=== PATIENT | male | born 1950 | race Caucasian/White ===

== ENCOUNTER 2021-12-26 11:44 | Observation (INO) | payer MEDICARE, OTHER, SELFPAY ==
[2021-12-26] VITALS (17 sets, daily range): BP systolic 110–149; BP diastolic 70–103; PULSE 53–74; RESP 16–26; TEMP 36.7–37.8; O2SAT 91–99; BMI 25.1; BMI 23.7
--- NOTE | 2021-12-26 12:00 | ED.WEAKNESS ---
HPI - Weakness General Chief complaint: Weakness Stated complaint: +COVID,weakness. Time Seen by Provider: 12/26/21 12:00 History of Present Illness HPI Narrative: Patient is a 71-year-old male history of Parkinson's presenting today with increased weakness is and COVID positive. is primary historian states that he has been coughing with low-grade temp for about 2 days. Yesterday he was unable to walk today he cannot sit. He is really not eating or drinking very much. He has had fever as high as 101.5 and sore throat. At baseline he is able to communicate he usually does more in the morning and worse at night. He gets around by walker. Very recently moved here from [place] and do not yet have a primary care provider. She states that sometimes he has violent dreams and gets Ativan at night he got Ativan 3 nights ago but nothing since. He has certainly been significantly more weak. The patient is able to answer some questions Related Data Home Medications Medication Instructions Recorded Confirmed carbidopa 25 mg-levodopa 100 mg 2 tab PO QID 12/26/21 12/26/21 tablet carbidopa ER 25 mg-levodopa 100 mg 2 tab PO QID 12/26/21 12/26/21 tablet,extended release Allergies Allergy/AdvReac Type Severity Reaction Status Date / Time No Known Drug Allergies Allergy Verified 12/26/21 12:20 Review of Systems Review of Systems ROS Unobtainable: Unobtainable due to medical condition Patient History Medical History (Updated 12/26/21 @ 18:58 by Edson Kaba DO) Parkinson disease Surgical History (Updated 12/26/21 @ 18:58 by Edson Kaba DO) No pertinent past surgical history Social History household members: spouse Smoking Status: Never smoker alcohol intake: never Exam Initial Vital Signs Initial Vital Signs: Vital Signs Temperature 98.1 F 12/26/21 12:01 Blood Pressure 110/79 12/26/21 12:01 GENERAL: Week slightly diaphoretic 71-year-old male and in no acute distress. HEENT: Head atraumatic,EOMI, pupils reactive, face symmetric, moist mucous membranes CARDIOVASCULAR: Regular rate and rhythm without murmurs, rubs or gallops. RESPIRATORY: Breath sounds equal bilaterally, no wheezes rales or rhonchi. ABDOMEN: Soft, nontender. Normoactive bowel sounds all 4 quadrants. No guarding or rebound. EXTREMITIES: Normal range of motion, no clubbing or edema. Neurovascularly intact NEUROLOGICAL: Alert responsive photo technician strength equal bilaterally able to follow commands can extend both feet SKIN: Warm, dry, no laceration, no petechiae, no rashes or lesions. Course Orders Ordered: ED Orders 12/26/21 12:05 Complete Blood Count AUTO DIFF Stat Comprehensive Metabolic Panel Stat Lactate (Lactic Acid) Stat Lipase Stat Procalcitonin Stat Respiratory Panel (Film Array) Stat 12/26/21 12:36 XR chest 1V Stat EKG-12 Lead Stat 12/26/21 13:20 Blood Culture Stat Acetaminophen (Acetaminophen 325 Mg Tablet) 975 mg PO Q8H PRN PRN Reason: Pain, Mild (1-3) Carbidopa/Levodopa (Carbidopa-Levodopa 25/100 Tablet) 2 each PO QID CHULA Diazepam (Diazepam 10 Mg/2 Ml Syringe) 2 mg IV Q4HR PRN PRN Reason: Agitation Enoxaparin Sodium (Enoxaparin 40 Mg/0.4 Ml Syringe) 40 mg SUBCUT DAILY CHULA Sodium Chloride (Normal Saline 0.9%) 1,000 mls @ 100 mls/hr IV CONT CHULA Lorazepam (Lorazepam 1 Mg Tablet) 1 mg PO Q4HR PRN PRN Reason: Agitation Magnesium Hydroxide (Magnesium Hydroxide 30 Ml Udc) 30 ml PO DAILY PRN PRN Reason: Constipation Ondansetron HCl (Ondansetron 4 Mg Odt) 4 mg PO Q8HR PRN PRN Reason: Nausea And Vomiting Discontinued Medications Diazepam (Diazepam 10 Mg/2 Ml Syringe) 2 mg IV NOW ONE Stop: 12/26/21 13:46 Last Admin: 12/26/21 14:40 Dose: Not Given Documented By: ALEXX Sodium Chloride (Normal Saline 0.9%) 1,000 mls @ 1,000 mls/hr IV BOLUS ONE Stop: 12/26/21 13:34 Last Infusion: 12/26/21 14:33 Dose: 0 mls/hr Documented By: Admin: 12/26/21 13:11 Dose: 1,000 mls/hr Documented By: MLSilvestre Lidocaine HCl (Lidocaine 2% (Glydo) 6 Ml Gel) 6 ml TOP NOW ONE Stop: 12/26/21 15:33 Last Admin: 12/26/21 15:48 Dose: 6 ml Documented By: SARA Vital Signs Vital signs: Vital Signs - 8 hr 12/26/21 12:01 12/26/21 12:02 12/26/21 12:03 Temperature 98.1 F Pulse Rate 69 Respiratory Rate 18 Blood Pressure 110/79 118/78 Pulse Oximetry Oxygen Delivery Method Oxygen Flow Rate 12/26/21 12:03 12/26/21 12:30 12/26/21 12:30 Temperature Pulse Rate 70 74 Respiratory Rate 18 17 Blood Pressure 123/81 Pulse Oximetry 96 Oxygen Delivery Method Nasal Cannula Oxygen Flow Rate 2 12/26/21 13:00 12/26/21 13:00 12/26/21 13:30 Temperature Pulse Rate 61 54 L Respiratory Rate 16 17 Blood Pressure 120/76 Pulse Oximetry 93 Oxygen Delivery Method Nasal Cannula Oxygen Flow Rate 2 12/26/21 14:00 12/26/21 14:00 12/26/21 14:30 Temperature Pulse Rate 53 L 70 Respiratory Rate 26 H 23 Blood Pressure 120/79 Pulse Oximetry Oxygen Delivery Method Oxygen Flow Rate 12/26/21 14:31 12/26/21 14:31 12/26/21 15:00 Temperature Pulse Rate 70 Respiratory Rate 23 Blood Pressure 138/83 146/79 H Pulse Oximetry 93 Oxygen Delivery Method Oxygen Flow Rate 12/26/21 15:00 Temperature Pulse Rate 64 Respiratory Rate 21 Blood Pressure Pulse Oximetry 92 Oxygen Delivery Method Oxygen Flow Rate MDM - Weakness Lab Data Result diagrams: 12/26/21 12:05 12/26/21 12:05 Labs: Lab Results 12/26/21 12/26/21 12/26/21 Range/Units 12:05 12:05 12:05 WBC 3.3 L (4.5-11.0) X10^3/uL RBC 5.30 (4.5-5.9) X10^6/uL Hgb 15.9 (13.5-17.5) g/dL Hct 46.4 (41-53) % MCV 87.6 (80-100) fL MCH 30.0 (26-34) PG MCHC 34.2 (30-36) % RDW 13.6 (11.6-14.8) % Plt Count 190 (150-400) X10^3/uL Neut % (Auto) 78.7 H (50-75) % Lymph % (Auto) 7.0 L (25-40) % [place] % (Auto) 14.0 (3-14) % Eos % (Auto) 0.0 L (2-4) % Baso % (Auto) 0.3 (0-2) % Neut # (Auto) 2600 (5896-1859) /uL Lymph # (Auto) 200 L (0033-4978) /uL [place] # (Auto) 500 (0-900) /uL Eos # (Auto) 0 (0-450) /uL Baso # (Auto) 0 (0-100) /uL Sodium 131 L (137-145) mmol/L Potassium 3.8 (3.4-5.1) mmol/L Chloride 97 L (98-107) mmol/L Carbon Dioxide 23 (22-32) mmol/L BUN 16 (9-20) mg/dL Creatinine 0.72 (0.66-1.25) mg/dL Estimated GFR > 60 (>60) mL/min BUN/Creatinine Ratio 22.2 H (6-22) Glucose 107 (80-110) mg/dL Lactate 0.9 (0.7-2.1) mmol/L Calcium 8.5 (8.4-10.2) mg/dL Total Bilirubin 0.7 (0.2-1.3) mg/dL AST 76 H (17-59) IU/L ALT 16 (<50) IU/L Alkaline Phosphatase 141 H (38-126) U/L Total Protein 7.2 (6.3-8.2) g/dL Albumin 4.1 (3.5-5.0) g/dL Globulin 3.1 (1.7-4.1) g/dL Albumin/Globulin Ratio 1.3 (1.0-2.8) Lipase 70 (23-300) U/L Procalcitonin 0.16 (<0.5) ng/mL Chlamy pneumoniae PCR (Not Detect) Adenovirus (PCR) (Not Detect) B. pertussis DNA (PCR) (Not Detecte) B.parapertussis DNA PCR (Not Detecte) Coronavirus OC43 (PCR) (Not Detect) Coronavirus HKU1 (PCR) (Not Detect) Coronavirus 229E (PCR) (Not Detect) SARS-CoV-2 (PCR) (Not Detecte) Coronavirus NL63 (PCR) (Not Detect) Human Metapneumovir PCR (Not Detect) Influenza Type A (PCR) (Not Detect) Influenza Type B (PCR) (Not Detect) M. pneumoniae (PCR) (Not Detect) Parainfluenza 1 (PCR) (Not Detect) Parainfluenza 2 (PCR) (Not Detect) Parainfluenza 3 (PCR) (Not Detect) Parainfluenza 4 (PCR) (Not Detect) RSV (PCR) (Not Detect) Entero/Rhino (PCR) (Not Detect) 12/26/21 Range/Units 12:05 WBC (4.5-11.0) X10^3/uL RBC (4.5-5.9) X10^6/uL Hgb (13.5-17.5) g/dL Hct (41-53) % MCV (80-100) fL MCH (26-34) PG MCHC (30-36) % RDW (11.6-14.8) % Plt Count (150-400) X10^3/uL Neut % (Auto) (50-75) % Lymph % (Auto) (25-40) % [place] % (Auto) (3-14) % Eos % (Auto) (2-4) % Baso % (Auto) (0-2) % Neut # (Auto) (0279-7419) /uL Lymph # (Auto) (6726-4321) /uL [place] # (Auto) (0-900) /uL Eos # (Auto) (0-450) /uL Baso # (Auto) (0-100) /uL Sodium (137-145) mmol/L Potassium (3.4-5.1) mmol/L Chloride (98-107) mmol/L Carbon Dioxide (22-32) mmol/L BUN (9-20) mg/dL Creatinine (0.66-1.25) mg/dL Estimated GFR (>60) mL/min BUN/Creatinine Ratio (6-22) Glucose (80-110) mg/dL Lactate (0.7-2.1) mmol/L Calcium (8.4-10.2) mg/dL Total Bilirubin (0.2-1.3) mg/dL AST (17-59) IU/L ALT (<50) IU/L Alkaline Phosphatase (38-126) U/L Total Protein (6.3-8.2) g/dL Albumin (3.5-5.0) g/dL Globulin (1.7-4.1) g/dL Albumin/Globulin Ratio (1.0-2.8) Lipase (23-300) U/L Procalcitonin (<0.5) ng/mL Chlamy pneumoniae PCR Not detected (Not Detect) Adenovirus (PCR) Not detected (Not Detect) B. pertussis DNA (PCR) Not detected (Not Detecte) B.parapertussis DNA PCR Not detected (Not Detecte) Coronavirus OC43 (PCR) Not detected (Not Detect) Coronavirus HKU1 (PCR) Not detected (Not Detect) Coronavirus 229E (PCR) Not detected (Not Detect) SARS-CoV-2 (PCR) Detected H (Not Detecte) Coronavirus NL63 (PCR) Not detected (Not Detect) Human Metapneumovir PCR Not detected (Not Detect) Influenza Type A (PCR) Not detected (Not Detect) Influenza Type B (PCR) Not detected (Not Detect) M. pneumoniae (PCR) Not detected (Not Detect) Parainfluenza 1 (PCR) Not detected (Not Detect) Parainfluenza 2 (PCR) Not detected (Not Detect) Parainfluenza 3 (PCR) Not detected (Not Detect) Parainfluenza 4 (PCR) Not detected (Not Detect) RSV (PCR) Not detected (Not Detect) Entero/Rhino (PCR) Not detected (Not Detect) Imaging Data Chest x-ray: Radiologist Impression: XRay Report Signed Patient: Deni Garcia MR#: [id number] : 1950 Acct:[id number] Age/Sex: 71 / M Date of Service: 12/26/21 Loc: ED Accession Number: [id number] ?? Procedure: XR chest 1V Ordering Provider: Jeni Wynne D.O. PROCEDURE:? XR CHEST 1V ? INDICATIONS:? suspected sepsis ? TECHNIQUE:? One view of the chest was acquired.? ? COMPARISON:? None. ? FINDINGS:? ? Surgical changes and devices:? None.? ? Lungs and pleura:? Trace strandy opacity laterally in the left lower lung.? Lungs are otherwise clear.? No consolidations.? No pleural effusions or pneumothorax.? ? Mediastinum:? Mediastinal contours appear normal.? Heart size is normal.? ? Bones and chest wall:? No suspicious bony lesions.? Overlying soft tissues appear unremarkable.? ? IMPRESSION:? Left lateral lower lung scarring.? Otherwise clear lungs. ? ? Dictated by: Lori Siddiuqi M.D. on 12/26/2021 at 13:37 ?? ECG Data Interpretation: Normal sinus rhythm rate 54 PA interval 106 QRS [address] changes MDM Narrative Medical decision making narrative: Patient it is COVID positive he is not requiring oxygen he is overall significantly weak and not at baseline. Needing IV fluids and monitoring. is unable to care for him at home. Dr. Kaba updated patient's symptoms test results and agrees with admission. At this time not hypoxic supportive care only Discharge Plan Departure Patient Disposition: Admitted As Inpatient Clinical Impression: COVID-19 Admit Date/Time: 12/26/21 15:07 Admit Provider: Edson Kaba
--- NOTE | 2021-12-26 12:36 | DI.RAD.S_ITS ---
PROCEDURE: XR CHEST 1V INDICATIONS: suspected sepsis TECHNIQUE: One view of the chest was acquired. COMPARISON: None. FINDINGS: Surgical changes and devices: None. Lungs and pleura: Trace strandy opacity laterally in the left lower lung. Lungs are otherwise clear. No consolidations. No pleural effusions or pneumothorax. Mediastinum: Mediastinal contours appear normal. Heart size is normal. Bones and chest wall: No suspicious bony lesions. Overlying soft tissues appear unremarkable. IMPRESSION: Left lateral lower lung scarring. Otherwise clear lungs. Dictated by: Lori Siddiqui M.D. on 12/26/2021 at 13:37 Approved by: Lori Siddiqui M.D. on 12/26/2021 at 13:37
[2021-12-26 12:48] LABS: Add Manual Diff / Slide Review NO; Basophils Absolute Auto 0 /uL (0-100); Basophils Percent Auto 0.3 % (0-2); Eosinophils Absolute Auto 0 /uL (0-450); Hematocrit 46.4 % (41-53); Hemoglobin 15.9 g/dL (13.5-17.5); Lymphocytes Absolute Auto 200 /uL (1100-4500); Mean Corpuscular HGB Conc 34.2 % (30-36); Mean Corpuscular Volume 87.6 fL (80-100); Monocytes Absolute Auto 500 /uL (0-900); Neutrophils Absolute Auto 2600 /uL (1500-7000); Neutrophils Percent Auto 78.7 % (50-75); Platelet Count 190 X10^3/uL (150-400); Red Cell Distribution Width 13.6 % (11.6-14.8); White Blood Cell Count 3.3 X10^3/uL (4.5-11.0)
[2021-12-26 12:53] LABS: Lactate (Lactic Acid) 0.9 mmol/L (0.7-2.1)
[2021-12-26 12:54] LABS: Alanine Aminotransferase 16 IU/L (<50); Albumin 4.1 g/dL (3.5-5.0); Albumin Globulin Ratio 1.3 (1.0-2.8); Alkaline Phosphatase 141 U/L (38-126); Aspartate Aminotransferase 76 IU/L (17-59); BUN Creatinine Ratio 22.2 (6-22); Bilirubin Total 0.7 mg/dL (0.2-1.3); Blood Urea Nitrogen 16 mg/dL (9-20); Calcium 8.5 mg/dL (8.4-10.2); Carbon Dioxide 23 mmol/L (22-32); Chloride 97 mmol/L (98-107); Estimated Glomerular Filt Rate > 60 mL/min (>60); Globulin 3.1 g/dL (1.7-4.1); Glucose 107 mg/dL (80-110); HEMOLYSIS < 15 (0-50); Lipase 70 U/L (23-300); Potassium 3.8 mmol/L (3.4-5.1); Sodium 131 mmol/L (137-145); Total Protein 7.2 g/dL (6.3-8.2)
[2021-12-26 13:10] LABS: Procalcitonin 0.16 ng/mL (<0.5)
[2021-12-26] MEDS: SODIUM CHLORIDE 0.9% 1,000 ML 1000 ML IV (13:11)
[2021-12-26 14:27] LABS: Adenovirus Not Detected (Not Detect); Coronavirus 229E Not Detected (Not Detect); Coronavirus HKU1 Not Detected (Not Detect); Coronavirus NL 63 Not Detected (Not Detect)
[2021-12-26 14:28] LABS: B. parapertussis Not Detected (Not Detecte); Bordetella pertussis Not Detected (Not Detecte); Chlamydophila pneumoniae Not Detected (Not Detect); Coronavirus OC43 Not Detected (Not Detect); Human Metapneumovirus Not Detected (Not Detect); Human Rhinovirus/Enterovirus Not Detected (Not Detect); Influenza A Not Detected (Not Detect); Influenza B Not Detected (Not Detect); Mycoplasma pneumoniae Not Detected (Not Detect); Parainfluenza Virus 1 Not Detected (Not Detect); Parainfluenza Virus 2 Not Detected (Not Detect); Parainfluenza Virus 3 Not Detected (Not Detect); Parainfluenza Virus 4 Not Detected (Not Detect); Respiratory Syncytial Virus Not Detected (Not Detect); SARS- CoV-2 Detected (Not Detecte)
[2021-12-26] MEDS: LIDOCAINE 2% (GLYDO) 6 ML GEL TOP (15:48)
[2021-12-26 18:35] LABS: Appearance Urine UA CLEAR; Bilirubin Urine UA NEGATIVE (NEGATIVE); Color Urine UA YELLOW; Glucose Urine UA NEGATIVE (Negative); Ketones Urine UA 1+ (NEGATIVE); Leukocyte Esterase Urine UA NEGATIVE (NEGATIVE); Nitrite Urine UA NEGATIVE (Negative); Occult Blood Urine UA NEGATIVE (Negative); Protein Urine UA 1+ (Negative); Specific Gravity Urine UA 1.025 (1.000-1.035); Urobilinogen Urine UA 0.2 E.U./dL (0.2); pH Urine UA 5.5 (4.5-8.0)
[2021-12-26 18:48] LABS: Bacteria Urine Few (2-10); Granular Casts Urine 1-5/LPF; Hyaline Casts Urine 5-10/LPF; RBC Urine 1-5/HPF (0-5/HPF); Squamous Epithelial Cell Urine 0-1 /HPF (0-5/HPF)
[2021-12-26 18:49] LABS: Culture Indicated Urine Cult Not Indicated; Mucus Urine 1+ (Negative)
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
[2021-12-26 18:50] LABS: WBC Urine 1-5/HPF (0-5/HPF)
[2021-12-26] MEDS: SODIUM CHLORIDE 0.9% 1,000 ML 100 ML IV (20:56)
--- NOTE | 2021-12-26 21:16 | PC.NURSE ---
Patient confused, agitated, and restless. Unable to keep oxygen or continuos pulse oximeter on patient for any longer than a few seconds. Paused IV fluids due to patient continually pulling and picking at tubing. Will attempt to reconnect all the things after administration of PRN medications.
[2021-12-26] MEDS: CARBIDOPA-LEVODOPA 25/100 TABLET 2 EACH PO (21:37)
[2021-12-27] VITALS (9 sets, daily range): BP systolic 126–152; BP diastolic 79–90; PULSE 56–72; RESP 17–20; TEMP 36.5–37.1; O2SAT 96–98
[2021-12-27 05:35] LABS: Hematocrit 45.5 % (41-53); Hemoglobin 15.5 g/dL (13.5-17.5); Mean Corpuscular HGB Conc 34.1 % (30-36); Mean Corpuscular Hemoglobin 29.8 PG (26-34); Mean Corpuscular Volume 87.3 fL (80-100); Platelet Count 178 X10^3/uL (150-400); Red Blood Cell Count 5.22 X10^6/uL (4.5-5.9); Red Cell Distribution Width 13.7 % (11.6-14.8); White Blood Cell Count 2.7 X10^3/uL (4.5-11.0)
[2021-12-27 05:37] LABS: Alanine Aminotransferase 80 IU/L (<50); Albumin Globulin Ratio 1.4 (1.0-2.8); Alkaline Phosphatase 123 U/L (38-126); Aspartate Aminotransferase 58 IU/L (17-59); BUN Creatinine Ratio 20.3 (6-22); Bilirubin Total 0.6 mg/dL (0.2-1.3); Blood Urea Nitrogen 15 mg/dL (9-20); Calcium 8.5 mg/dL (8.4-10.2); Carbon Dioxide 28 mmol/L (22-32); Chloride 98 mmol/L (98-107); Estimated Glomerular Filt Rate > 60 mL/min (>60); Globulin 2.9 g/dL (1.7-4.1); Glucose 100 mg/dL (80-110); HEMOLYSIS < 15 (0-50); Sodium 132 mmol/L (137-145); Total Protein 6.9 g/dL (6.3-8.2)
[2021-12-27 05:40] LABS: Add Manual Diff / Slide Review YES
[2021-12-27 06:46] LABS: Neutrophils Absolute Manual 1458 /uL (3000-5900); RBC Morphology Normal Morphology; Total Cells Counted 100
[2021-12-27] MEDS: CARBIDOPA-LEVODOPA 25/100 TABLET 2 EACH PO ×3 (10:14→18:23)
[2021-12-27] MEDS: ENOXAPARIN 40 MG/0.4 ML SYRINGE SUBCUT (10:14)
--- NOTE | 2021-12-27 10:24 | CM.DANOTE ---
DCP Note: Payor: Medicare PCP: Unknown Pt is a 71 y.o. M who was brought to the ED via ambulance with increased weakness and COVID +. Pt was unable to walk yesterday and when he was brought into the ED, pt cannot sit. Pt , Melita, is primary historian for pt. She stated that he has had a fever as high as 101.5 and sore throat. At baseline, pt can communicate but is worse at night. Pt has a history of Parkinsons Dementia Disease. Pt admitted to the floor for COVID support, weakness with PT/OT evals. DCP unable to meet with pt due to covid precautions. DCP contacted pt , Melita, to inquire about pt baseline activity level and gather more history. Per Melita, pt is non-independent and he walks with a walker. Melita is present when pt is walking to help prevent any falls. Melita states that they are currently living in a rental house because they just bought a house in [place] and it closes on Wednesday. Melita also states that they will not be able to move into the house due to the fact they are getting new floors starting wednesday and cannot live in the house until finished. Melita states that her rental house is on Wednesday and she will be homeless. Melita does state that she is going to call around today to try and find a hotel that she can stay at in the meantime. Melita states that their daughter lives nearby but they cannot stay at their house due to the fact they have many stairs to get into the house and a flight of stairs to get upstairs to the bedrooms. Melita states that she is uncertain if she can take care of pt when he is discharged from the hospital if he is still weak and unable to walk. DCP explained that PT/OT will be working with him today and we will be able to evaluate his baseline to determine needs post discharge. DCP spoke with Melita about HH vs SNF options. Melita open to that discussion. DCP to keep Melita updated as things progress with pt. P: Pt to work with PT/OT today. Once eval established, DCP to coordinate care as appropriate. Rosalind Rob RN/DCP Discharge Planning/Care Management CM Discharge Assessment Start: 12/27/21 10:23 Freq: Status: Active Protocol: Document 12/27/21 10:23 FLOR (Rec: 12/27/21 10:24 FLOR [id number]) Discharge Planning Assessment Assigned Marketing Programs Manager Rosalind Rob RN/JACQUES Advance Directives? Yes Advance Directives on File No History Provided By Family Member,Medical Record Prior Living Arrangements House Household Members spouse Type of transporation used prior to Relies on Others admit Independent with ADL's Yes: With some assistance DME Already Rented / Owned FWW / Walker Discharge Plan Home Referrals Initiated None needed Additional Comment At this time. Might need HH or SNF. Whiteboard Updated in Patient Room with No name and ext. # of Marketing Programs Manager Comment Unable to enter room due to covid precautions Review Status In Process Please Provide Date Initial DC 12/27/21 Assessment Was Performed Next Review Type Continued Stay Review
--- NOTE | 2021-12-27 11:11 | OT.IP.EVAL ---
Current Diagnoses COVID-19 (12/26/21) Past Medical History (Last Updated 12/26/21 @ 18:58 by Edson Kaba DO) Parkinson disease Surgical History (Last Updated 12/26/21 @ 18:58 by Edson Kaba DO) No pertinent past surgical history Occupational Therapy Inpatient Evaluation/Re-Eval M1 PT/OT-IP Prior Functional Status Start: 12/27/21 12:46 Freq: NEEDED Status: Active Protocol: Document 12/27/21 12:46 CGR (Rec: 12/27/21 13:30 CGR [id number]) Medical Review Prior Functional Status Medical History Reviewed Yes Communication Pt is able to communicate but is soft spoken and difficult to hear with CAPR donned. Mobility and Gait Pt was SBA to CGA with use of a 2WW per . states pt falls regularly typically when he is forgetful and tries to ambulate without his walker. Activities of Daily Living and IADL's Pt needed assist for most ADLs . Pt participates in a peridontal care routine that he could do with set up. Pt is able to perform toileting for urination IND but needs pericare assist for BM. Pt needs assist with dressing 60% of the time and needs assist with showering all of the time . Social History Household Members spouse Living Arrangements House Number of Floors (Floors) One Floor Number of Stairs To Enter/Railing? 4 steps to enter with B wide railings. states that she is thinking about getting a ramp. Home Environment Standard Height Toilet,Walk in Shower,Built-In Shower Seat Home Equipment Front Wheel Walker,Manual Wheelchair,Bedside Commode, Raised Toilet Seat Without Armrests,Lift Recliner Employment Status Retired Additional Social History Comment Pt and are about to move into a new house in [place] , they close on the house on Friday 12/29 and start michelle on 12/30. Pt's states that she and her daughter are planning to go to the house today to see if they can get one room ready so that they can stay in the home while the floors are finished. M2 OT-IP Current Condition Start: 12/27/21 12:46 Freq: Status: Active Protocol: Document 12/27/21 12:46 CGR (Rec: 12/27/21 13:30 CGR [id number]) Occupational Therapy Current Condition Current Condition Evaluation Date 12/27/21 Treatment Diagnosis Covid, hx of parkinsons, dementia Diagnosis Onset Date 12/26/21 M3 OT- IP Subjective and Pain Start: 12/27/21 12:46 Freq: Status: Active Protocol: Document 12/27/21 12:46 CGR (Rec: 12/27/21 13:30 CGR [id number]) OT- Subjective Occupational Therapy Visit Type Type Initial Evaluation Visit Start Time 10:30 Visit Stop Time 11:11 Total Visit Minutes 41 OT Pain Assessment Pain When Pain Assessed At Rest Pain Present Pain Present Denied Pain M4 OT- IP ADL's Start: 12/27/21 12:46 Freq: Status: Active Protocol: Document 12/27/21 12:46 CGR (Rec: 12/27/21 13:30 CGR [id number]) OT [id number] Comments OT Self-Feeding Comments Not meal time OT ADL-Grooming General Evaluation Grooming Ability Standby Assistance Areas Needing Assistance Face Washing Comments OT Grooming Comments seated in chair OT ADL-Oral Care General Eval Oral Care Ability Minimal Assistance Areas of Assistance Brushing Teeth Comments Oral Care Comments seated in chair OT ADL-Dressing General Eval Upper Body Dressing Ability Maximum Assistance Lower Body Dressing Ability Total Assistance Areas Needing Assistance Socks Comments OT Dressing Comments hospital gown and socks. Pt appeared confused about donning the hosptial gown. OT ADL-Toileting Comments OT Toileting Comments not performed, pt with lucas OT ADL-Bathing Comments OT Bathing Comments not performed M5 OT- IP IADL's Start: 12/27/21 12:46 Freq: Status: Active Protocol: Document 12/27/21 12:46 CGR (Rec: 12/27/21 13:30 CGR [id number]) OT-Instrumental Activities of Daily Living Deficits IADL Deficits Identified Deficits Home Safety Awareness Awareness of Need for Assistance at Home Decreased Awareness Ability to Problem Solve Emergency Unable to Problem Solve Situations Medication Management Medication Management Caregiver Administers Money Management Money Management Caregiver Provides Assistance Meal Preparation Meal Preparation Caregiver Provides Assist Histology Manager Histology Manager Caregiver Provides Assist Driving Driving Comments Pt does not drive M6 OT- IP Functional Cognition Start: 12/27/21 12:46 Freq: Status: Active Protocol: Document 12/27/21 12:46 CGR (Rec: 12/27/21 13:30 CGR [id number]) Cognitive Factors Limiting Selfcare Function Cognitive Ability Level of Alertness Alert,Confusional State Patient Orientation Name Attention Span Ability Capable of Focused Attention, Capable of Sustained Attention Ability to Follow Commands Able to Follow One Step Commands with Increased Time, Able to Follow One Step Commands with Repetition Cognitive Comments Cognitive Assessment Comments Pt with advanced dementia at baseline. OT- Vision and Hearing OT- Hearing Assessment OT- Hearing Assessment WFL OT- Vision Assessment Visual Acuity Glasses All The Time Visual Attentiveness WFL Occular Pursuits Impaired Vertical Vision Assessment Comments Pt was unable to track upwards M7 OT- IP Mobility and Balance Start: 12/27/21 12:46 Freq: Status: Active Protocol: Document 12/27/21 12:46 CGR (Rec: 12/27/21 13:30 CGR [id number]) OT- Bed Mobility Assessment Supine to Sit Supine to Sit Assist Moderate Assistance,1 Person Assistance Scooting Scooting to Edge of Bed Moderate Assistance,1 Person Assistance OT-Transfer Assessment Sit to and From Stand Sit to and from Stand Maximum Assistance,1 Person Assistance Transfers Transfer Ability Maximum Assistance,1 Person Assistance Technique Transfer Destination Bed,Chair Transfer Technique Stand Step Pivot Devices Transfer Assistive Devices Gait Belt,Front Wheeled Walker Comments Mobility Comments Pt with shuffling gait to chair. OT- Balance Assessment Sitting Balance and Reactions Static Sitting Balance Ability Fair Dynamic Sitting Balance Ability Fair M8 OT- IP Objective Assessments Start: 12/27/21 12:46 Freq: Status: Active Protocol: Document 12/27/21 12:46 CGR (Rec: 12/27/21 13:30 CGR [id number]) OT Gross Range of Motion Upper Extremity Range of Motion Assessment Left Impaired ROM Impairments AROM to the L shld is impaired OT Strength Upper Extremity Strength Assessment Within Functional Limits Comments Strength Comments arms and hands grossly 4+/5 OT- Coordination Assessment Upper Extremity Finger to Nose Test Bilateral UE Impaired Finger Tapping Test Bilateral UE Impaired Comments Coordination Comments WFL for simple ADLs but below what would be expected for someone of his age. OT-Muscle Tone Assessment Muscle Tone WNL Yes OT Sensation Assessment Edema Edema Absent M9 OT- IP Assessment and Plan Start: 12/27/21 12:46 Freq: Status: Active Protocol: Document 12/27/21 12:46 CGR (Rec: 12/27/21 13:30 CGR [id number]) OT Summary Assessment and Plan Potential Rehabilitation Potential Good Analytic Complexity at Evaluation High Summary OT Impairments Range of Motion,Balance, Coordination,Functional Cognition,Functional Mobility, Grooming,Dressing,Toileting, Bathing,Toilet Transfers, Shower Transfers,Activity Tolerance Progress Towards Goals Progressing Toward Goals Assessment Summary Pt presents as a high complexity evaluation s/p admit for covid with weakness and fevers. Pt has a hx of Parkinson and dementia. Pt needed max a for transfer to chair today with shuffling gait. Pt performed simple ADls seated in chair. Pt will benefit from continued Ot services while hospitalized. Pt is likely to progress for a safe discharge home but at this time pt would need SNF if ready for discharge. Goals Self-Feeding Goal Independent Grooming Goal Standby Assistance Bathing Goal Moderate Assistance Toilet Transfer Goal Standby Assistance Shower Transfer Goal Standby Assistance Days to Meet Goals 10 Frequency of Treatment Frequency Of Treatment Once a Day Treatment Plan OT Treatment Plan ADL Training,Functional Cognition Training,Functional Mobility,Patient/Family Education,Discharge Planning Other Treatment Recommendations and Next ADLs standing if able Treatment Focus Discharge Recommendations OT Discharge Recommendations Home vs SNF Other Discharge Recommendations Pt is likely to progress to a safe discharge home with family but currently is needing more physical assist than is his baseline. Transportation Needs at Discharge Wheelchair/Cabulance
--- NOTE | 2021-12-27 11:45 | PT.IIE ---
Current Diagnoses COVID-19 (12/26/21) Surgical History (Last Updated 12/26/21 @ 18:58 by Edson Kaba DO) No pertinent past surgical history Medical History (Last Updated 12/26/21 @ 18:58 by Edson Kaba DO) Parkinson disease Physical Therapy Inpatient Evaluation/Re-Eval M1 PT/OT-IP Prior Functional Status Start: 12/27/21 14:18 Freq: NEEDED Status: Active Protocol: Document 12/27/21 11:45 AB (Rec: 12/27/21 14:32 AB [id number]) Medical Review Prior Functional Status Medical History Reviewed Yes Communication pt able to follow instructs but inconsistent; has a very soft faint voice Mobility and Gait Per OT: Pt was SBA to CGA with use of a FWW per . states pt falls regularly typically when he is forgetful and tries to ambulate without his walker. Activities of Daily Living and IADL's pt unable to provide info regarding home set up and PLOF ; OT called spouse to obtain info: Per OT: Pt needed assist for most ADLs. Pt participates in a peridontal care routine that he could do with set up. Pt is able to perform toileting for urination IND but needs pericare assist for BM. Pt needs assist with dressing 60% of the time and needs assist with showering all of the time . Social History Household Members spouse Living Arrangements House Number of Floors (Floors) One Floor Number of Stairs To Enter/Railing? 4 steps to enter with B wide railings. states that she is thinking about getting a ramp. Home Environment Standard Height Toilet,Walk in Shower,Built-In Shower Seat Home Equipment Front Wheel Walker,Manual Wheelchair,Bedside Commode, Raised Toilet Seat Without Armrests,Lift Recliner Employment Status Retired Additional Social History Comment Pt and are about to move into a new house in [place] , they close on the house on Friday 12/29 and start michelle on 12/30. Pt's states that she and her daughter are planning to go to the house today to see if they can get one room ready so that they can stay in the home while the floors are finished. M2 PT-IP Current Condition Start: 12/27/21 14:18 Freq: NEEDED Status: Active Protocol: Document 12/27/21 11:45 AB (Rec: 12/27/21 14:32 AB [id number]) Physical Therapy Current Condition Current Condition Evaluation Date 12/27/21 Treatment Diagnosis Covid; PD; difficulty in walking Onset Date 12/26/21 M3 PT-IP Subjective Start: 12/27/21 14:18 Freq: NEEDED Status: Active Protocol: Document 12/27/21 11:45 AB (Rec: 12/27/21 14:32 AB [id number]) Subjective Physical Therapy Visit Type Type Initial Evaluation Visit Start Time 11:45 Visit Stop Time 12:18 Total Visit Minutes 33 Number of SENIOR FINANCIAL REPORTING ANALYST Visits 0 Physical Therapy Visit Comments Patient Comments pt is very restless on the chair and was trying to get up by himself M4 PT-IP Mobility and Gait Start: 12/27/21 14:18 Freq: NEEDED Status: Active Protocol: Document 12/27/21 11:45 AB (Rec: 12/27/21 14:32 AB [id number]) PT-Bed Mobility Assessment Supine to Sit Supine to Sit Standby Assistance Sit to Supine Sit to Supine Standby Assistance PT-Transfer Assessment Sit to and From Stand Sit to and from Stand Maximum Assistance,1 Person Assistance,Use of Upper Extremities Equipment Transfer Assistive Device Gait Belt,Front Wheeled Walker Orthotic/Prosthetic Devices or Brace: No Transfers Transfer Destination Bed,Chair Transfer Technique Stand Step Pivot Transfer Ability Level of Assist Maximum Assistance,1 Person Assistance,Use of Upper Extremities Comments Mobility Comments pt sitting on chair and is very restless. cued for safety and requires one step max cues with all tasks. completed sit to stand max A and cues. increase posterior LOB and max A for standing balance using fWW. ambulated in room using FWW max A and cues. pt let go of FWW midway during ambulation to reach down towards the floor. cued to stand up and to hold on to the walker. requires max cues and increas time for refocusing and redirection to task at hand. ambulated to the bed and pt climbing into the bed to get in sBA. when asked if this is how pt gets into the bed, pt nodded. asked pt to get back up and completed SBA. completed sit to stand max A and max cues and step transfer to chair max A and max cues using FWW. positioned pt on the chair. chair alarm on. call light and table placed within reach. Gait Assessment Gait Gait Assistance Required: Maximum Assistance Distance (Feet) 15 Able to Maintain Weight Bearing Status Yes During Gait Assistive Devices Assistive Device Gait Belt,Front Wheeled Walker Orthotic/Prosthetic Devices or Brace: No Gait Deviations General Gait Pattern Ataxic,Decreased Stride Length ,Decreased Feet Clearance Factors Limiting Gait Function Factors Limiting Gait Function Decreased Activity Tolerance, Decreased Strength,Difficulty Following Directions,Limited Range of Motion,Poor Balance, Poor Safety Awareness PT-Balance Assessment Sitting Balance and Reactions Static Sitting Balance Ability Good Dynamic Sitting Balance Ability Fair Standing Balance and Reactions Static Standing Balance Ability Poor Dynamic Standing Balance Ability Poor Device Used FWW M5 PT-IP Objective Assessments Start: 12/27/21 14:18 Freq: NEEDED Status: Active Protocol: Document 12/27/21 11:45 AB (Rec: 12/27/21 14:32 AB [id number]) Orientation Orientation/Cognition Level of Alertness Confusional State Orientation Name Safety Awareness Decreased Safety Awareness Memory Description Short Term Impaired,Detention Impaired Gross Range of Motion Lower Extremity ROM Assessment Within Functional Limits Strength Lower Extremity Strength Assessment Within Functional Limits Sensation Assessment Sensation Gross Sensation WNL M6 PT-IP Treatment Start: 12/27/21 14:18 Freq: NEEDED Status: Active Protocol: Document 12/27/21 11:45 AB (Rec: 12/27/21 14:32 AB [id number]) Physical Therapy Treatment Education Education Provided Safety M7 PT-IP Assessment and Plan Start: 12/27/21 14:18 Freq: NEEDED Status: Active Protocol: Document 12/27/21 11:45 AB (Rec: 12/27/21 14:32 AB [id number]) PT Summary Assessment and Plan Potential Rehabilitation Potential Fair Status of Condition at Evaluation Evolving Summary Impairments Pain,ROM,Strength,Balance, Coordination,Sensation,Tone, Cognition,Bed Mobility, Transfers,Gait,Activity Tolerance Assessment Summary pt requiring max A for sit to stand, transfers and ambulation using fWW with increase posterior LOB in standing despite FWW use and requires max A for standing balance using fWW. Pt with decrease safety awareness and gets easily distracted requiring max cues with all tasks for safety. pt lives with spouse. pt is in the transition on moving to a new house. pt may benefit from SNF rehab to improve mobility independence. will continue to assess progress. Goals Bed Mobility Goal Independent Transfer Goal Standby Assistance,Front Wheeled Walker Gait Goal Standby Assistance,Front Wheel Walker Gait Distance 150 Other Goals up/down 4 steps 1 rail SBA Days to Meet Goals 10 Frequency of Treatment Frequency Of Treatment Once a Day Treatment Plan Physical Therapy Treatment Plan Bed Mobility Training,Transfer Training,Gait Training, Therapeutic Exercise,Balance Retraining,Discharge Planning, Hot or Cold Pack,Neuromuscular Re-ed,Coordination Retraining ,Manual Therapy Precautions Other Precautions falls; Covid Recommendations To Nursing Amount of Assist Needed 2 Person Assist Discharge Recommendations PT Discharge Recommendations Home with 11/01 Assist Available,Home Health,SNF Rehab,Home vs SNF Transportation Needs at Discharge Private Vehicle,Wheelchair/ Cabulance
--- NOTE | 2021-12-27 13:20 | PM.PN.1 ---
Subjective Subjective Date Patient Seen: 12/27/21 Interval history: Feels a bit stronger today, but requires much assistance still with PT today. Exam Vital Signs (past 8 hours): - 12/27/21 06:00 12/27/21 08:00 Temperature 98.5 F Pulse Rate 56 L Respiratory Rate 19 Blood Pressure 139/79 Pulse Oximetry 97 96 Oxygen Delivery Method Room Air Oxygen Flow Rate 0 Oxygen Delivery Method Room Air Oxygen Flow Rate 0 Narrative Exam Narrative: General:? Patient mildly chronically ill appearing. Sitting upright in bed. HEENT:? Normocephalic, atraumatic, extraocular muscles intact, oral pharynx is clear and mucous membranes are dry. Neck: supple and symmetric, trachea is midline, no cervical adenopathy. Chest:? Normal AP diameter and contour without kyphoscoliosis, no tachypnea, equal chest rise bilaterally. Lungs:? CTA b/l no wheezing rhonchi or rales. Cardio:?RRR no m/r/g. Abdomen: S NT ND. Musculoskeletal:? Muscle strength and tone are equal within normal limits, no deformity. Extremities: No edema or joint effusions. No cyanosis or clubbing. Skin:? Pale,? Warm to touch,dry and intact without rashes, ulcerations or petechiae.? Neuro:? Alert, confused. Evident cognitive impairment. masked facies with resting pill rolling tremor. No focal deficits. Psych:?flat, currently calm and cooperative. Objective Labs Result Diagrams: 12/27/21 05:15 12/27/21 05:15 Labs: Laboratory Results - last 24 hr 12/26/21 12/26/21 12/27/21 12:05 15:45 05:15 WBC 2.7 L RBC 5.22 Hgb 15.5 Hct 45.5 MCV 87.3 MCH 29.8 MCHC 34.1 RDW 13.7 Plt Count 178 Neut % (Auto) Not Reportable Lymph % (Auto) Not Reportable [place] % (Auto) Not Reportable Eos % (Auto) Not Reportable Baso % (Auto) Not Reportable Lymph # (Auto) Not Reportable [place] # (Auto) Not Reportable Baso # (Auto) Not Reportable Total Counted 100 Seg Neutrophils % 37.0 L Band Neutrophils % 17.0 H Lymphocytes % (Manual) 22.0 L Atypical Lymphs % 1.0 H Monocytes % (Manual) 23.0 H Neutrophils # (Manual) 1458 L RBC Morphology Normal morphology Sodium Potassium Chloride Carbon Dioxide BUN Creatinine Estimated GFR BUN/Creatinine Ratio Glucose Calcium Magnesium Total Bilirubin AST ALT Alkaline Phosphatase Total Protein Albumin Globulin Albumin/Globulin Ratio Urine Color Yellow Urine Appearance Clear Urine pH 5.5 Ur Specific [place] 1.025 Urine Protein 1+ H Urine Glucose (UA) Negative Urine Ketones 1+ H Urine Occult Blood Negative Urine Nitrate Negative Urine Bilirubin Negative Urine Urobilinogen 0.2 Ur Leukocyte Esterase Negative Urine RBC 1-5/hpf Urine WBC 1-5/hpf Ur Squamous Epith Cells 0-1 /hpf Urine Bacteria Few (2-10) H Hyaline Casts 5-10/lpf Granular Casts 1-5/lpf Urine Mucus 1+ H Ur Culture Indicated? Cult not indicated Chlamy pneumoniae PCR Not detected Adenovirus (PCR) Not detected B. pertussis DNA (PCR) Not detected B.parapertussis DNA PCR Not detected Coronavirus OC43 (PCR) Not detected Coronavirus HKU1 (PCR) Not detected Coronavirus 229E (PCR) Not detected SARS-CoV-2 (PCR) Detected H Coronavirus NL63 (PCR) Not detected Human Metapneumovir PCR Not detected Influenza Type A (PCR) Not detected Influenza Type B (PCR) Not detected M. pneumoniae (PCR) Not detected Parainfluenza 1 (PCR) Not detected Parainfluenza 2 (PCR) Not detected Parainfluenza 3 (PCR) Not detected Parainfluenza 4 (PCR) Not detected RSV (PCR) Not detected Entero/Rhino (PCR) Not detected 12/27/21 05:15 WBC RBC Hgb Hct MCV MCH MCHC RDW Plt Count Neut % (Auto) Lymph % (Auto) [place] % (Auto) Eos % (Auto) Baso % (Auto) Lymph # (Auto) [place] # (Auto) Baso # (Auto) Total Counted Seg Neutrophils % Band Neutrophils % Lymphocytes % (Manual) Atypical Lymphs % Monocytes % (Manual) Neutrophils # (Manual) RBC Morphology Sodium 132 L Potassium 4.0 Chloride 98 Carbon Dioxide 28 BUN 15 Creatinine 0.74 Estimated GFR > 60 BUN/Creatinine Ratio 20.3 Glucose 100 Calcium 8.5 Magnesium 2.0 Total Bilirubin 0.6 AST 58 ALT 80 H Alkaline Phosphatase 123 Total Protein 6.9 Albumin 4.0 Globulin 2.9 Albumin/Globulin Ratio 1.4 Urine Color Urine Appearance Urine pH Ur Specific [place] Urine Protein Urine Glucose (UA) Urine Ketones Urine Occult Blood Urine Nitrate Urine Bilirubin Urine Urobilinogen Ur Leukocyte Esterase Urine RBC Urine WBC Ur Squamous Epith Cells Urine Bacteria Hyaline Casts Granular Casts Urine Mucus Ur Culture Indicated? Chlamy pneumoniae PCR Adenovirus (PCR) B. pertussis DNA (PCR) B.parapertussis DNA PCR Coronavirus OC43 (PCR) Coronavirus HKU1 (PCR) Coronavirus 229E (PCR) SARS-CoV-2 (PCR) Coronavirus NL63 (PCR) Human Metapneumovir PCR Influenza Type A (PCR) Influenza Type B (PCR) M. pneumoniae (PCR) Parainfluenza 1 (PCR) Parainfluenza 2 (PCR) Parainfluenza 3 (PCR) Parainfluenza 4 (PCR) RSV (PCR) Entero/Rhino (PCR) [facility] Medical History (Updated 12/26/21 @ 18:58 by Edson Kaba DO) Parkinson disease Surgical History (Updated 12/26/21 @ 18:58 by Edson Kaba DO) No pertinent past surgical history Social History household members: spouse Smoking Status: Never smoker alcohol intake: never Assessment & Plan Assessment & Plan narrative: 1. COVID 19 - continue supportive care. 2. Parkinson disesase - continue home sinemet 3. 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 Weakness due to #1 - PT /OT evaluations, presumed secondary to COVID. No other obvious metabolic or infectious etiology at this time. Code: unable to clarify at this time, will need to discuss with spouse per chart review. Presume full for now. Surrogate: presume spouse, unable to discuss with patient given his mentation currently. DVT: Lovenox daily Dispo: observation, plan for home COVID-19 COVID-19 status: Positive Time Spent With Patient Critical Care time: I spent a total of [] minutes of critical care time on this patient's care today; this time is exclusive of procedural time. Quality VTE Deep Vein Thrombosis/Pulmonary Embolism Present on Admission: No
[2021-12-27] MEDS: LORazepam 1 MG TABLET PO (18:23)
[2021-12-27] MEDS: SODIUM CHLORIDE 0.9% FLUSH 10 ML IV (20:57)
[2021-12-27] MEDS: CARBIDOPA-LEVODOPA ER 50/200 TABLET 1 EACH PO (20:57)
--- NOTE | 2021-12-27 21:39 | PC.NURSE ---
Patient agitated at shift change necessitating administration of Ativan at 1823 and is currently lying calmly and able to answer few orientation questions and follows some direction but not consistently. Is able to state his name and birthdate only. Is very soft spoken and difficult to understand. Breath sounds diminished and coarse sounding with RA sat of 97%. HRR. BP trending low end of high at 147/88. BT present and abdomen is soft. Indwelling catheter is patent; urine is clear, yellow. Denied pain when asked and has FLACC of 0. Has Parkinson's so extremities are stiff and with noted tremoring. On covid isolation precautions. Fall risk score is high and bed alarm is activated and currently has 1:1 staff observation.
[2021-12-28 00:59] VITALS: BP 145/72; PULSE 61; RESP 18; TEMP 37.3; O2SAT 99
[2021-12-28 05:29] VITALS: BP 147/83; PULSE 73; RESP 18; TEMP 37.2; O2SAT 96
[2021-12-28 05:36] LABS: Alanine Aminotransferase 12 IU/L (<50); Albumin 3.7 g/dL (3.5-5.0); Albumin Globulin Ratio 1.2 (1.0-2.8); Alkaline Phosphatase 110 U/L (38-126); Aspartate Aminotransferase 46 IU/L (17-59); BUN Creatinine Ratio 21.9 (6-22); Bilirubin Total 0.6 mg/dL (0.2-1.3); Blood Urea Nitrogen 16 mg/dL (9-20); Calcium 8.4 mg/dL (8.4-10.2); Carbon Dioxide 28 mmol/L (22-32); Chloride 98 mmol/L (98-107); Estimated Glomerular Filt Rate > 60 mL/min (>60); Glucose 99 mg/dL (80-110); HEMOLYSIS < 15 (0-50); Magnesium 1.9 mg/dL (1.6-2.3); Sodium 133 mmol/L (137-145); Total Protein 6.7 g/dL (6.3-8.2)
[2021-12-28 05:45] LABS: Add Manual Diff / Slide Review NO; Basophils Absolute Auto 0 /uL (0-100); Basophils Percent Auto 0.4 % (0-2); Eosinophils Absolute Auto 0 /uL (0-450); Eosinophils Percent Auto 0.1 % (2-4); Hemoglobin 15.1 g/dL (13.5-17.5); Lymphocytes Absolute Auto 700 /uL (1100-4500); Lymphocytes Percent Auto 21.3 % (25-40); Mean Corpuscular HGB Conc 34.3 % (30-36); Mean Corpuscular Hemoglobin 29.8 PG (26-34); Mean Corpuscular Volume 86.8 fL (80-100); Monocytes Absolute Auto 500 /uL (0-900); Monocytes Percent Auto 13.9 % (3-14); Neutrophils Absolute Auto 2200 /uL (1500-7000); Neutrophils Percent Auto 64.3 % (50-75); Platelet Count 169 X10^3/uL (150-400); Red Blood Cell Count 5.07 X10^6/uL (4.5-5.9); Red Cell Distribution Width 13.6 % (11.6-14.8); White Blood Cell Count 3.5 X10^3/uL (4.5-11.0)
[2021-12-28] MEDS: CARBIDOPA-LEVODOPA 25/100 TABLET 2 EACH PO ×3 (06:20→16:35)
[2021-12-28] MEDS: CARBIDOPA-LEVODOPA ER 50/200 TABLET 1 EACH PO ×4 (06:21→20:10)
[2021-12-28] MEDS: SODIUM CHLORIDE 0.9% FLUSH 10 ML IV ×2 (08:17→20:11)
[2021-12-28] MEDS: ENOXAPARIN 40 MG/0.4 ML SYRINGE SUBCUT (08:17)
[2021-12-28 08:33] VITALS: BP 126/67; PULSE 57; RESP 16; TEMP 37.6; O2SAT 97
--- NOTE | 2021-12-28 11:16 | CM.DPC ---
DCP Cont: DCP spoke with pt , Melita, this morning to inquire about current living situation. Per Melita, they are receiving the keys to their new house tomorrow and they are going to go see if they would be able to put a bed in the room where they are not having floors installed so that they can get patient home. I verbalized to Melita that pt could potentially be getting discharged home tomorrow and she stated that if he is getting discharged home tomorrow, for them to plan for the afternoon. Melita states that herself and her entire family is sick with COVID. DCP did notice the increase in coughing and secretions in Melita's voice. DCP talked to Melita about home health services and she agreed that would be a good option. DCP to keep Melita updated. DCP to initiate HH referral as appropriate. Rosalind Rob RN/DCP
--- NOTE | 2021-12-28 11:22 | PM.PN.1 ---
Subjective Subjective Date Patient Seen: 12/28/21 Interval history: Patient much weaker today, more somnolent. According to , patient is a mod assist at baseline with walker, tapers off activity mancini throughout the day. He became agitated overnight, required ativan which helped but he may be sleepy from this or his COVID infection. He denies chest pain or difficulty breathing. Exam Vital Signs (past 8 hours): - 12/28/21 05:29 12/28/21 05:29 12/28/21 08:33 Temperature 99.0 F 99.7 F H Pulse Rate 73 57 L Respiratory Rate 18 16 Blood Pressure 147/83 H 126/67 Pulse Oximetry 96 96 97 Oxygen Delivery Method Room Air Oxygen Flow Rate 0 0 0 Oxygen Delivery Method Room Air Oxygen Flow Rate 0 Narrative Exam Narrative: General:? Patient mildly chronically ill appearing. Difficult to arouse today. HEENT:? Normocephalic, atraumatic, extraocular muscles intact, oral pharynx is clear and mucous membranes are dry. Neck: supple and symmetric, trachea is midline, no cervical adenopathy. Chest:? Normal AP diameter and contour without kyphoscoliosis, no tachypnea, equal chest rise bilaterally. Lungs:? CTA b/l no wheezing rhonchi or rales. Cardio:?RRR no m/r/g. Abdomen: S NT ND. Musculoskeletal:? Muscle strength and tone are equal within normal limits, no deformity. Extremities: No edema or joint effusions. No cyanosis or clubbing. Skin:? Pale,? Warm to touch,dry and intact without rashes, ulcerations or petechiae.? Neuro:? sleepy, difficult to arouse but able to follow simple commands, confused. Evident cognitive impairment. masked facies. No focal deficits. Objective Labs Result Diagrams: 12/28/21 05:04 12/28/21 05:04 Labs: Laboratory Results - last 24 hr 12/28/21 12/28/21 05:04 05:04 WBC 3.5 L RBC 5.07 Hgb 15.1 Hct 44.0 MCV 86.8 MCH 29.8 MCHC 34.3 RDW 13.6 Plt Count 169 Neut % (Auto) 64.3 Lymph % (Auto) 21.3 L [place] % (Auto) 13.9 Eos % (Auto) 0.1 L Baso % (Auto) 0.4 Neut # (Auto) 2200 Lymph # (Auto) 700 L [place] # (Auto) 500 Eos # (Auto) 0 Baso # (Auto) 0 Sodium 133 L Potassium 4.0 Chloride 98 Carbon Dioxide 28 BUN 16 Creatinine 0.73 Estimated GFR > 60 BUN/Creatinine Ratio 21.9 Glucose 99 Calcium 8.4 Magnesium 1.9 Total Bilirubin 0.6 AST 46 ALT 12 Alkaline Phosphatase 110 Total Protein 6.7 Albumin 3.7 Globulin 3.0 Albumin/Globulin Ratio 1.2 [facility] Medical History (Updated 12/26/21 @ 18:58 by Edson Kaba DO) Parkinson disease Surgical History (Updated 12/26/21 @ 18:58 by Edson Kaba DO) No pertinent past surgical history Social History household members: spouse Smoking Status: Never smoker alcohol intake: never Assessment & Plan Assessment & Plan narrative: 1. COVID 19 - continue supportive care. No respiratory symptoms currently. 2. Parkinson disesase - continue home sinemet. 3. 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 One dose given overnight. 4. Weakness due to #1 - PT /OT evaluations, presumed secondary to COVID. - he remains significantly worse than his baseline. 5. Metabolic encephalopathy. - possibly due to COVID infection or need for ativan yesterday. - continue PT/OT - try and reorient prior to benzo administration Code: Full Surrogate: spouse DVT: Lovenox daily Dispo: observation, plan for home COVID-19 COVID-19 status: Positive Time Spent With Patient Critical Care time: I spent a total of [] minutes of critical care time on this patient's care today; this time is exclusive of procedural time. Quality VTE Deep Vein Thrombosis/Pulmonary Embolism Present on Admission: No
[2021-12-28 16:00] VITALS: BP 155/92; PULSE 62; RESP 16; TEMP 37.3; O2SAT 97
[2021-12-28 20:00] VITALS: BP 104/72; PULSE 67; RESP 18; TEMP 37.3; O2SAT 98
[2021-12-28 20:20] VITALS: O2SAT 98
[2021-12-28] MEDS: ACETAMINOPHEN 325 MG TABLET 975 MG PO (20:38)
[2021-12-29] VITALS: BP 144/76; PULSE 60; RESP 17; TEMP 36.4; O2SAT 96
[2021-12-29] MEDS: SODIUM CHLORIDE 0.9% FLUSH 10 ML IV ×2 (00:23→08:11)
[2021-12-29] MEDS: diazePAM 10 MG/2 ML SYRINGE 2 MG IV (00:23)
[2021-12-29 00:30] VITALS: O2SAT 96
[2021-12-29 04:00] VITALS: BP 158/84; PULSE 62; RESP 16; TEMP 37.6; O2SAT 97
[2021-12-29 05:31] LABS: Add Manual Diff / Slide Review NO; Basophils Absolute Auto 0 /uL (0-100); Basophils Percent Auto 0.5 % (0-2); Eosinophils Absolute Auto 0 /uL (0-450); Eosinophils Percent Auto 0.6 % (2-4); Hematocrit 43.3 % (41-53); Hemoglobin 15.1 g/dL (13.5-17.5); Lymphocytes Absolute Auto 600 /uL (1100-4500); Lymphocytes Percent Auto 14.9 % (25-40); Mean Corpuscular HGB Conc 34.8 % (30-36); Mean Corpuscular Hemoglobin 30.2 PG (26-34); Monocytes Absolute Auto 500 /uL (0-900); Neutrophils Absolute Auto 2900 /uL (1500-7000); Platelet Count 155 X10^3/uL (150-400); Red Blood Cell Count 4.98 X10^6/uL (4.5-5.9); Red Cell Distribution Width 13.8 % (11.6-14.8); White Blood Cell Count 4.1 X10^3/uL (4.5-11.0)
[2021-12-29 05:41] LABS: Alanine Aminotransferase 29 IU/L (<50); Albumin 3.8 g/dL (3.5-5.0); Albumin Globulin Ratio 1.3 (1.0-2.8); Alkaline Phosphatase 110 U/L (38-126); Aspartate Aminotransferase 40 IU/L (17-59); Bilirubin Total 0.8 mg/dL (0.2-1.3); Blood Urea Nitrogen 14 mg/dL (9-20); Calcium 8.3 mg/dL (8.4-10.2); Carbon Dioxide 27 mmol/L (22-32); Chloride 98 mmol/L (98-107); Estimated Glomerular Filt Rate > 60 mL/min (>60); Glucose 98 mg/dL (80-110); HEMOLYSIS < 15 (0-50); Potassium 3.7 mmol/L (3.4-5.1); Sodium 133 mmol/L (137-145); Total Protein 6.8 g/dL (6.3-8.2)
--- NOTE | 2021-12-29 06:13 | PC.NURSE ---
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 Patient says he was hungry and unable to feed self, ate 50% of dinner and drank 2 cups water with full assistance. Tylenol given for Temp and pain from pulling at Tavares catheter, small clots noted in tubing. Incontinent small formed brown stool. Remains in Droplet Isolation.
[2021-12-29] MEDS: CARBIDOPA-LEVODOPA 25/100 TABLET 2 EACH PO ×2 (07:43→12:00)
[2021-12-29] MEDS: CARBIDOPA-LEVODOPA ER 50/200 TABLET 1 EACH PO (07:43)
[2021-12-29] MEDS: ENOXAPARIN 40 MG/0.4 ML SYRINGE SUBCUT (08:11)
[2021-12-29 08:12] VITALS: BP 146/87; PULSE 60; RESP 16; TEMP 36.9; O2SAT 97
--- NOTE | 2021-12-29 10:38 | PM.DS.1 ---
History of Present Illness History of Present Illness Date Patient Seen: 12/29/21 Time Patient Seen: 10:45 Chief complaint: +COVID,weakness. Narrative: This is a 71-year-old male with a past medical history of Parkinson's who presented to the emergency room today with increasing weakness and a positive COVID test.? History is largely obtained from the ER provider and documentation as the patient is unable to recall an accurate history.? He is able to answer some questions, but the time frame with which he answers is unclear.? According to the ER provider, his stated that he has been coughing with a low-grade temperature for a couple of days.? He has had worsening weakness and today he was unable to really sit up.? He has had declining appetite not eating or drinking much and has had a fever as high as 101 at home.? He does has a history of violent dreams according to the ER provider and gets intermittent Ativan.? The patient currently denies any chest pain, fever, chills, nausea, or vomiting.? He denies any abdominal pain, lower extremity swelling, or joint pains. In the emergency room, he was mildly hypertensive but the remainder of his vital signs were unremarkable.? He had no respiratory symptoms.? Initial laboratory evaluation revealed a mild leukopenia, mild hyponatremia with sodium of 131, mild transaminitis with an AST of 76.? Urinalysis showed 1-5 RBC and WBC, a few urine bacteria, with some squamous cells, it was not reflexed for culture.? Respiratory panel was positive for COVID-19.? Chest x-ray was unremarkable.? Patient was admitted for weakness in the setting COVID-19 infection. I am unable to confirm patient's family history and code status at this time given his current mental status. Discharge Providers Provider Date of admission: 12/26/21 15:07 Discharge Date: 12/29/21 Consults: 12/26/21 17:19 Consult to Occupational Therapy Evaluate & Treat Comment: Physician Instructions: Evaluate and treat Consult to Physical Therapy Evaluate & Treat Comment: Physician Instructions: Evaluate and Treat Discharge provider: Gabby Brewer MD Summary Hospital Course Discharge Diagnosis: 1. Covid Pneumonia 2. Parkinson's Disease 3. Generalized weakness 4. Dementia Hospital Course: Patient was admitted with a positive Covid test, weakness and inability to ambulate. We has agitated at night and required ativan. He is not hypoxic. He remains confused but is in no acute distress. Patient appears to be somewhat weaker as at baseline he was a moderate assist with a walker. Given his Covid-19 status he will not be eligible to go to a SNF. Status at Discharge Cognitive/behavioral status at discharge: confused and at baseline, confused Functional status at discharge: uses cane/walker Overall status at discharge: patient is progressing back to baseline Exam Vital Signs (past 8 hours): - 12/29/21 04:00 12/29/21 04:00 12/29/21 08:12 Temperature 99.6 F 98.4 F Pulse Rate 62 60 Respiratory Rate 16 16 Blood Pressure 158/84 H 146/87 H Pulse Oximetry 97 97 97 Oxygen Delivery Method Room Air Oxygen Flow Rate 0 Oxygen Delivery Method Room Air Oxygen Flow Rate 0 Narrative Exam Narrative: ill appearing male sitting up in a bed in no acute distrss Resp Other: Lungs: clear to auscultation Cardio Other: CV: RRR nl Sl S2 GI Other: Abd: soft /non tender/ non distended Extrem Other: NO edema Objective Labs Result Diagrams: 12/29/21 05:14 12/29/21 05:14 Labs: Laboratory Results - last 24 hr 12/29/21 12/29/21 05:14 05:14 WBC 4.1 L RBC 4.98 Hgb 15.1 Hct 43.3 MCV 87.0 MCH 30.2 MCHC 34.8 RDW 13.8 Plt Count 155 Neut % (Auto) 71.0 Lymph % (Auto) 14.9 L [place] % (Auto) 13.0 Eos % (Auto) 0.6 L Baso % (Auto) 0.5 Neut # (Auto) 2900 Lymph # (Auto) 600 L [place] # (Auto) 500 Eos # (Auto) 0 Baso # (Auto) 0 Sodium 133 L Potassium 3.7 Chloride 98 Carbon Dioxide 27 BUN 14 Creatinine 0.70 Estimated GFR > 60 BUN/Creatinine Ratio 20.0 Glucose 98 Calcium 8.3 L Magnesium 2.0 Total Bilirubin 0.8 AST 40 ALT 29 Alkaline Phosphatase 110 Total Protein 6.8 Albumin 3.8 Globulin 3.0 Albumin/Globulin Ratio 1.3 [facility] Medical History (Updated 12/26/21 @ 18:58 by Edson Kaba DO) Parkinson disease Surgical History (Updated 12/26/21 @ 18:58 by Edson Kaba DO) No pertinent past surgical history Social History household members: spouse Smoking Status: Never smoker alcohol intake: never Discharge Assessment & Plan Assessment and Plan Assessment: 1. Covid Pneumonia 2. Parkinson's Disease 3. Generalized weakness 4. Dementia Plan of Treatment: Discharge home with home health Discharge Plan Discharge Plan Patient Disposition: Home Discharge orders & Medications Prescriptions: Continued carbidopa-levodopa 25-100 mg Tablet Extended Release 2 tab PO QID Rx Instructions: 0700, 1000, 1300, 1600 carbidopa-levodopa 25-100 mg Tablet 2 tab PO QID Rx Instructions: 0700, 1000, 1300, 1600 Discharge Health Status Multidrug resistant organism: No MDRO Diet/Activity/Treatments Diet: Diet as Tolerated Discharge Data Attending Provider: Edson Kaba Quality VTE Deep Vein Thrombosis/Pulmonary Embolism Present on Admission: No
--- NOTE | 2021-12-29 11:30 | CM.DPC ---
Addendum entered by Rosalind Rob R.N. 12/29/21 14:18: DCP sent d/c summary to [facility] . GEOFFREY ZHENG/JACQUES Original Note: DCP Cont: DCP spoke with pt this morning to inform her about pt discharge today. DCP informed that pt will be discharged today and MD is recommending home health. agrees. states that they she was able to book a hotel room @ the [facility] here in [place] until Wednesday in hopes that the floors are done at the house. DCP states that the HH agency can come out and work with him in the motel until they can transition into the new home. states that her and her daughter would come to pickle pumper pt around 3:30 as they are having to pickle pumper keys from the realtor and then their check in time is 4pm at the motel. DCP verbalized understanding and informed the team of pickle pumper time [facility] referral sent. Orders and F2F included. Will need to fax d/c summary once available. P: Pt to discharge home today via spouse POV with home health orders. Rosalind Rob RN/JACQUES
[2021-12-29] MEDS: ACETAMINOPHEN 325 MG TABLET 975 MG PO (11:44)
[2021-12-29 12:00] VITALS: BP 134/80; PULSE 56; RESP 19; TEMP 37.4; O2SAT 98
--- NOTE | 2021-12-29 12:20 | PT.IPTN ---
Current Diagnoses COVID-19 (12/26/21) Physical Therapy Treatment Note M2 PT-IP Current Condition Start: 12/27/21 14:18 Freq: NEEDED Status: Active Protocol: Document 12/29/21 11:48 SP (Rec: 12/29/21 15:39 SP [id number]) Physical Therapy Current Condition Current Condition Evaluation Date 12/27/21 Treatment Diagnosis Covid; PD; difficulty in walking Onset Date 12/26/21 M3 PT-IP Subjective Start: 12/27/21 14:18 Freq: NEEDED Status: Active Protocol: Document 12/29/21 11:48 SP (Rec: 12/29/21 15:39 SP [id number]) Subjective Physical Therapy Visit Type Type Treatment Note Visit Start Time 11:48 Visit Stop Time 12:20 Total Visit Minutes 32 Notes Vitals taken during tx: supine: BP 149/87 HR 62 SaO2 99% on RA post mobility: BP 155/93 HR 69 SaO2 98% on RA Number of DATA CENTER MANAGER Visits 1 Physical Therapy Visit Comments Patient Comments Pt agreeable to mobilizing with DATA CENTER MANAGER. M4 PT-IP Mobility and Gait Start: 12/27/21 14:18 Freq: NEEDED Status: Active Protocol: Document 12/29/21 11:48 SP (Rec: 12/29/21 15:39 SP [id number]) PT-Bed Mobility Assessment Supine to Sit Supine to Sit Standby Assistance Scooting Scooting to Edge of Bed Standby Assistance PT-Transfer Assessment Sit to and From Stand Sit to and from Stand Moderate Assistance,1 Person Assistance,Use of Upper Extremities Equipment Transfer Assistive Device Gait Belt,Front Wheeled Walker Orthotic/Prosthetic Devices or Brace: No Transfers Transfer Destination Chair Transfer Technique stand step pivot transfer, ambulated w/ FWW Transfer Ability Level of Assist Minimal Assistance,Moderate Assistance,1 Person Assistance ,Use of Upper Extremities Comments Mobility Comments Pt completed supine>sit, scoot EOB SBA using BUE. Sit>stand Mod A x1 support at trunk due to retro lean, cued forward COG over CHASTITY. SPT bed>chair w/ FWW, hand over hand with max cues reach back to sit on chair, Min A descend to sit. Sit>stand Min A cued push from chair arms. Forward gait to sink, cues for FWW positioning over portable step, complete ascend/descend 6 step forward/ step back w/ R sink rail and FWW on L for support CGA-5%A, then gait across room to door and back to chair CG- Min A w/ FWW for trunk stability and cues for increase stride/ foot clearance to decrease shuffle gait improved receiprocal patterning. Stand pivot front chair cued fully back step w/ FWW, assisted FWW positioning when needed, Min A sit in chair. Pt had call light and all needs in reach, chair alarm donned, nursing brought in lunch tray, pt able to feed self with no issues noted before left. Pt would benefit from continued home health PT for increase strength and functional mobility. Pt is ok to return home when medically cleared. Gait Assessment Gait Gait Assistance Required: Contact Guard Assist,Minimum Assistance,1 Person Assist Distance (Feet) 30 Able to Maintain Weight Bearing Status Yes During Gait Assistive Devices Assistive Device Gait Belt,Front Wheeled Walker Orthotic/Prosthetic Devices or Brace: No Gait Deviations General Gait Pattern Ataxic,Decreased Stride Length ,Decreased Feet Clearance, Festinating,Narrow Based Gait, Step-to Gait Factors Limiting Gait Function Factors Limiting Gait Function Decreased Activity Tolerance, Decreased Strength,Difficulty Following Directions,Limited Range of Motion,Poor Balance, Poor Safety Awareness Comments Gait Comments see mobility comments Stair Climbing Assessment Evaluation Level of Assist On Stairs Contact Guard Assistance, Minimal Assistance,1 Person Assistance Devices Stair Climbing Assistive Devices Front Wheel Walker,Right Railing Technique/Endurance Stair Climbing Direction Ascend and Descend Stair Climbing Technique Step to Step Number of Steps Climbed 1 Stair Climbing Set # Repetitions (reps) 6 Comments Stair Climbing Comments step up/ back down portable 4 step R sink rail and FWW on L postioning over step to assimulate enterance to home due quarantine and unable to leave room. PT-Balance Assessment Sitting Balance and Reactions Static Sitting Balance Ability Good Dynamic Sitting Balance Ability Fair Standing Balance and Reactions Static Standing Balance Ability Fair Dynamic Standing Balance Ability Fair Device Used FWW M5 PT-IP Objective Assessments Start: 12/27/21 14:18 Freq: NEEDED Status: Active Protocol: Document 12/27/21 11:45 AB (Rec: 12/27/21 14:32 AB [id number]) Orientation Orientation/Cognition Level of Alertness Confusional State Orientation Name Safety Awareness Decreased Safety Awareness Memory Description Short Term Impaired,Halfway Impaired Gross Range of Motion Lower Extremity ROM Assessment Within Functional Limits Strength Lower Extremity Strength Assessment Within Functional Limits Sensation Assessment Sensation Gross Sensation WNL M6 PT-IP Treatment Start: 12/27/21 14:18 Freq: NEEDED Status: Active Protocol: Document 12/29/21 11:48 SP (Rec: 12/29/21 15:39 SP [id number]) Physical Therapy Treatment Education Education Provided Safety M7 PT-IP Assessment and Plan Start: 12/27/21 14:18 Freq: NEEDED Status: Active Protocol: Document 12/29/21 11:48 SP (Rec: 12/29/21 15:39 SP [id number]) PT Summary Assessment and Plan Potential Rehabilitation Potential Fair Status of Condition at Evaluation Evolving Summary Impairments Pain,ROM,Strength,Balance, Coordination,Sensation,Tone, Cognition,Bed Mobility, Transfers,Gait,Activity Tolerance Progress Towards Goals Progressing Toward Goals,Slow Progress due to Activity Tolerance Assessment Summary Pt required CGA during bed mob , Min- Mod A during transfers, CG-Min A during gait and stair mgt w/ FWW, max cues for increased foot clearance and stride to decrease shuffle gait. Pt would benefit from HHPT for increase strength and independence in functional mobility. Pt is ok to return home with family to assist him when medically cleared, 24/7 available due to fall risk and Max cuing and physical support during mobility. Goals Bed Mobility Goal Independent Transfer Goal Standby Assistance,Front Wheeled Walker Gait Goal Standby Assistance,Front Wheel Walker Gait Distance 150 Other Goals up/down 4 steps 1 rail SBA Days to Meet Goals 10 Frequency of Treatment Frequency Of Treatment Once a Day Treatment Plan Physical Therapy Treatment Plan Bed Mobility Training,Transfer Training,Gait Training, Therapeutic Exercise,Balance Retraining,Discharge Planning, Hot or Cold Pack,Neuromuscular Re-ed,Coordination Retraining ,Manual Therapy Other Recommendations and Next Treatment bed mob, transfers, gait w/ Focus FWW, standing functional strengthening and balance activities. Precautions Other Precautions falls; Covid Recommendations To Nursing Amount of Assist Needed 1 Person Assist Discharge Recommendations PT Discharge Recommendations Home with 24/ Assist Available,Home Health Transportation Needs at Discharge Private Vehicle,Wheelchair/ Cabulance
--- NOTE | 2021-12-29 12:57 | OT.IPNOTE ---
Pt eating lunch and to discharge today.
--- NOTE | 2021-12-29 15:54 | PC.NURSE ---
Discharge Note Patient A&O to baseline, VSS, RA. No complaints of pain/discomfort. Discharge information reviewed with family all questions/concerns addressed. TELE/PIV discontinued. Patient assisted to dress. Belongings packed and given to patient along with discharge packet. Patient taken down via wheelchair to POV.
== END 2021-12-29 15:45 | disposition home or self-care (01) ==
LOC: ED 14:44 → AC 15:14
PROVIDERS: Admitting Provider Internal Medicine; Emergency Provider Emergency Medicine; Referring Provider Emergency Medicine; Visit Provider Internal Medicine
DX: U07.1 COVID-19 (principal); J12.82 Pneumonia due to coronavirus disease 2019; R53.1 Weakness; F02.81 Dementia in other diseases classified elsewhere, unspecified severity, with behavioral disturbance; G20 Parkinson's disease
CPT/HCPCS: 36415; 71045; 80053; 81001; 83605; 83690; 83735; 84145; 85007; 85025; 87040; 87633; 93005; 93010; 96361; 96372; 96374; 97116; 97162; 97167; 97530; 97535; 99285; G0378; J1650; J3360

== ENCOUNTER 2022-01-03 08:28 | Emergency (ER) | payer MEDICARE, OTHER, SELFPAY ==
[2021-12-26 17:36] VITALS: BMI 23.7
[2022-01-03 09:09] VITALS: BP 119/77; PULSE 77; RESP 20; TEMP 36.4; O2SAT 99; BMI 25.1
--- NOTE | 2022-01-03 09:17 | ED_ITS ---
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 Patient has Parkinson's. Is essentially nonverbal however does show facial expressions still. Patient here for dysuria and cloudy looking urine. Patient would get red in the face and grimace when trying to urinate since yesterday. noted cloudy urine today. Patient recently admitted to the hospital earlier this month for COVID. Did have a Tavares catheter in place during his stay. No prior history of UTIs. Otherwise recovering very well from COVID. Related Data Home Medications Medication Instructions Recorded Confirmed carbidopa 25 mg-levodopa 100 mg 2 tab PO QID 12/26/21 12/26/21 tablet carbidopa ER 25 mg-levodopa 100 mg 2 tab PO QID 12/26/21 12/26/21 tablet,extended release Previous Rx's Medication Instructions Recorded phenazopyridine 100 mg tablet 100 mg PO TID PRN pain 6 doses #6 01/03/22 (Pyridium) tabs sulfamethoxazole 400 1 tab PO BID #14 tabs 01/03/22 mg-trimethoprim 80 mg tablet (Bactrim) Allergies Allergy/AdvReac Type Severity Reaction Status Date / Time No Known Drug Allergies Allergy Verified 12/26/21 12:20 Review of Systems Review of Systems Narrative: GENERAL: Denies chills, fatigue, malaise, fever, sweats. HEENT: Denies sinus pain, ear pain, sore throat RESPIRATORY: Denies dyspnea, cough CARDIOVASCULAR: Denies chest pain, palpitations GASTROINTESTINAL: Denies nausea, vomiting, abdominal pain : Positive for dysuria, frequency, negative hematuria MUSCULOSKELETAL: denies muscle or bony pain SKIN: Denies rash, skin lesions NEUROLOGIC: Denies weakness, numbness ROS Unobtainable: All systems reviewed & are unremarkable except as noted in HPI and below Patient History Medical History Parkinson disease Surgical History No pertinent past surgical history Social History household members: spouse Smoking Status: Never smoker alcohol intake: never Smoking Status: Never smoker Substance Use Type: does not use Exam Narrative Exam Narrative: GENERAL: in no distress, not toxic not dyspneic, patient sleeping. HEAD: Normocephalic. NECK: Trachea midline. CARDIOVASCULAR: Regular rate and rhythm without murmurs RESPIRATORY: Clear to auscultation. Breath sounds equal bilaterally. No wheezes, rales, or rhonchi. GASTROINTESTINAL: Abdomen soft, non-tender EXTREMITIES: No gross deformities. SKIN: Warm and dry PSYCH: Not anxious, is cooperative Initial Vital Signs Initial Vital Signs: Vital Signs Temperature 97.6 F 01/03/22 09:09 Pulse Rate 77 01/03/22 09:09 Respiratory Rate 20 01/03/22 09:09 Blood Pressure 119/77 01/03/22 09:09 Pulse Oximetry 99 01/03/22 09:09 Oxygen Delivery Method 01/03/22 09:09 Course Course Course Narrative: No new issues during course of stay Orders Ordered: Discontinued Medications Phenazopyridine HCl (Phenazopyridine 100 Mg Tablet) 200 mg PO NOW ONE Stop: 01/03/22 09:18 Last Admin: 01/03/22 09:41 Dose: 200 mg Documented By: SHIVANI Trimethoprim/Sulfamethoxazole (Trimeth/Sulfa 160/800 (Ds) Tablet) 1 tab PO NOW ONE Stop: 01/03/22 09:18 Last Admin: 01/03/22 09:41 Dose: 1 tab Documented By: SHIVANI Reevaluation(s) Reevaluation #1: Reviewed results with , agrees with treatment plan and outpatient antibiotics. Not toxic at discharge. Return precautions reviewed with . Time: 10:44 Vital Signs Vital signs: Vital Signs - 8 hr 01/03/22 09:09 01/03/22 09:51 01/03/22 10:00 Temperature 97.6 F Pulse Rate 77 60 55 L Respiratory Rate 20 17 18 Blood Pressure 119/77 Pulse Oximetry 99 98 100 Oxygen Delivery Method Room Air 01/03/22 10:01 01/03/22 10:01 Temperature Pulse Rate 54 L Respiratory Rate 16 Blood Pressure 133/68 Pulse Oximetry 99 Oxygen Delivery Method MDM - Male Genitourinary Differential Diagnosis Differential diagnosis: Likely urinary tract infection, urethritis and acute retention of urine Lab Data Labs: Lab Results 01/03/22 Range/Units 09:57 Urine Color [place]lie Urine Appearance Sl cloudy Urine pH 5.5 (4.5-8.0) Ur Specific [place] 1.025 (1.000-1.035) Urine Protein 2+ H (Negative) Urine Glucose (UA) Negative (Negative) g/dL Urine Ketones 1+ H (NEGATIVE) Urine Occult Blood 3+ H (Negative) Urine Nitrate Positive H (Negative) Urine Bilirubin 1+ H (NEGATIVE) Ur Bilirubin Confirm Positive H (Negative) Urine Urobilinogen 1.0 (0.2) E.U./dL Ur Leukocyte Esterase 1+ H (NEGATIVE) Urine RBC 10-30/hpf H (0-5/HPF) Urine WBC >100/hpf H (0-5/HPF) Ur Squamous Epith Cells 0-1 /hpf (0-5/HPF) Urine Bacteria Many (>30) H (None) Ur Culture Indicated? Specimen cultured MDM Narrative Medical decision making narrative: Appropriate for discharge home. Patient not toxic. At baseline per . Return precautions reviewed with . Not toxic at discharge. No imaging indicated this time. Antibiotics started here in the department Discharge Plan Departure Patient Disposition: Home Clinical Impression: Urinary tract infection Instructions: DI for Urinary Tract Infection (UTI) Activity Restrictions/Additional Instructions: Keep well hydrated. See family doctor next week for re-evaluation. Prescription for antibiotics and Pyridium has been sent to your [facility] pharmacy and [place]. Be sure to continue today. Return if worse if any questions or concerns Prescriptions: New sulfamethoxazole-trimethoprim [Bactrim] 400-80 mg tablet 1 tab PO BID Qty: 14 0RF phenazopyridine [Pyridium] 100 mg tablet 100 mg PO TID PRN (Reason: pain) Qty: 6 0RF No Action carbidopa-levodopa 25-100 mg Tablet Extended Release 2 tab PO QID Rx Instructions: 0700, 1000, 1300, 1600 carbidopa-levodopa 25-100 mg Tablet 2 tab PO QID Rx Instructions: 0700, 1000, 1300, 1600 Visit Report Forms: Patient Portal/API
[2022-01-03] MEDS: TRIMETH/SULFA 160/800 (DS) TABLET 1 TAB PO (09:41)
[2022-01-03] MEDS: PHENAZOPYRIDINE 100 MG TABLET 200 MG PO (09:41)
[2022-01-03 09:51] VITALS: PULSE 60; RESP 17; O2SAT 98
[2022-01-03 10:00] VITALS: PULSE 55; RESP 18; O2SAT 100
[2022-01-03 10:01] VITALS: BP 133/68; PULSE 54; RESP 16; O2SAT 99
[2022-01-03 10:18] LABS: Bilirubin Urine UA 1+ (NEGATIVE); Glucose Urine UA NEGATIVE (Negative); Ketones Urine UA 1+ (NEGATIVE); Leukocyte Esterase Urine UA 1+ (NEGATIVE); Nitrite Urine UA POSITIVE (Negative); Occult Blood Urine UA 3+ (Negative); Protein Urine UA 2+ (Negative); Specific Gravity Urine UA 1.025 (1.000-1.035); pH Urine UA 5.5 (4.5-8.0)
[2022-01-03 10:23] LABS: Appearance Urine UA SL CLOUDY; Color Urine UA Amber
[2022-01-03 10:31] LABS: Bacteria Urine Many (>30); Culture Indicated Urine Specimen Cultured; Ictotest Urine Positive (Negative); RBC Urine 10-30/HPF (0-5/HPF); Squamous Epithelial Cell Urine 0-1 /HPF (0-5/HPF); WBC Urine >100/HPF (0-5/HPF)
[2022-01-03 11:06] VITALS: BP 133/83; PULSE 65; RESP 16; O2SAT 99
== END 2022-01-03 11:11 | disposition home or self-care (01) ==
PROVIDERS: Emergency Provider Emergency Medicine
DX: N39.0 Urinary tract infection, site not specified (principal); Z86.16 Personal history of COVID-19
CPT/HCPCS: 81001; 87077; 87086; 87186; 99283

== ENCOUNTER → 2022-02-20 09:07 | Outpatient (CLI) | payer MEDICARE, OTHER, SELFPAY ==
[2021-12-26 17:36] VITALS: BMI 23.7
[2022-02-20 10:33] LABS: Appearance Urine UA SL CLOUDY; Bilirubin Urine UA NEGATIVE (NEGATIVE); Color Urine UA YELLOW; Glucose Urine UA NEGATIVE (Negative); Ketones Urine UA NEGATIVE (NEGATIVE); Leukocyte Esterase Urine UA 3+ (NEGATIVE); Nitrite Urine UA POSITIVE (Negative); Occult Blood Urine UA 1+ (Negative); Protein Urine UA TRACE (Negative); Urobilinogen Urine UA 0.2 E.U./dL (0.2); pH Urine UA 5.5 (4.5-8.0)
[2022-02-20 10:44] LABS: Bacteria Urine Many (>30); Culture Indicated Urine Specimen Cultured; RBC Urine 1-5/HPF (0-5/HPF); Squamous Epithelial Cell Urine 0-1 /HPF (0-5/HPF); WBC Urine 10-30/HPF (0-5/HPF)
== END ==
PROVIDERS: PCP Pediatrics; Referring Provider Pediatrics; Visit Provider Pediatrics
DX: Z87.440 Personal history of urinary (tract) infections (principal)
CPT/HCPCS: 81001; 87077; 87086; 87186

== ENCOUNTER 2022-03-05 10:12 | Emergency (ER) | payer MEDICARE, OTHER, SELFPAY ==
[2021-12-26 17:36] VITALS: BMI 23.7
[2022-03-05] VITALS (17 sets, daily range): BP systolic 122–156; BP diastolic 78–107; PULSE 54–95; RESP 15–26; TEMP 36.6; O2SAT 95–100; BMI 23.9
--- NOTE | 2022-03-05 10:37 | DI.RAD.S_ITS ---
PROCEDURE: XR SHOULDER LT MIN 2V INDICATIONS: fall TECHNIQUE: 2 views of the shoulder were acquired. COMPARISON: None. FINDINGS: Bones: The humeral head is located inferior to the glenohumeral joint space. No definitive fracture. Soft tissues: No suspicious soft tissue calcifications. IMPRESSION: Anterior dislocation without visualized fracture. Dictated by: Veena Oliveira M.D. on 03/05/2022 at 11:33 Approved by: Veena Oliveira M.D. on 03/05/2022 at 11:33
--- NOTE | 2022-03-05 12:51 | ED.UPPEXIN ---
HPI - Extremity Injury (Upper) General Chief Complaint: Extremity Injury, Upper Stated Complaint: Dislocated shoulder- pain getting worse Time Seen by Provider: 03/05/22 12:16 Source: patient and family Mode of arrival: Family Vehicle History of Present Illness HPI narrative: Patient is a 72-year-old male history of Parkinson's and frequent falls presenting today with left shoulder pain and injury. states that 3 days ago she was helping her she was holding onto him when they both fell onto the bed on left side. She he has previously had surgery on that left shoulder she states his rotator his cough has completely gone. He has actually had surgery on that shoulder as well. His came in today for evaluation. Related Data Home Medications Medication Instructions Recorded Confirmed carbidopa 25 mg-levodopa 100 mg 2 tab PO QID 12/26/21 12/26/21 tablet carbidopa ER 25 mg-levodopa 100 mg 2 tab PO QID 12/26/21 12/26/21 tablet,extended release Previous Rx's Medication Instructions Recorded phenazopyridine 100 mg tablet 100 mg PO TID PRN pain 6 doses #6 01/03/22 (Pyridium) tabs sulfamethoxazole 400 1 tab PO BID #14 tabs 01/03/22 mg-trimethoprim 80 mg tablet (Bactrim) clonazepam 0.5 mg tablet 0.5 mg PO BEDTIME PRN insomnia #30 01/23/22 tabs nitrofurantoin 100 mg PO Q12H 7 days #14 caps 02/19/22 monohydrate/macrocrystals 100 mg capsule (Macrobid) hydrocodone 5 mg-acetaminophen 325 1 tab PO Q6H PRN pain #10 tabs 03/05/22 mg tablet Allergies Allergy/AdvReac Type Severity Reaction Status Date / Time No Known Drug Allergies Allergy Verified 12/26/21 12:20 Review of Systems Review of Systems Narrative: GENERAL: Denies chills,fever HEENT: Denies throat pain RESPIRATORY: Denies dyspnea, cough, wheezing CARDIOVASCULAR: Denies chest pain, palpitations GASTROINTESTINAL: Denies nausea, vomiting MUSCULOSKELETAL: See HPI SKIN: No rash, no laceration, no pruritus NEUROLOGIC: Denies weakness, dizziness, headache, numbness 8 point review of systems is negative except for those stated above and HPI Patient History Medical History H/O recurrent urinary tract infection History of urinary incontinence (~2020) Parkinson disease (~2013) Vision disorder Surgical History Anesthesia No pertinent past surgical history Status post left rotator cuff repair Family History Father Alzheimer's disease Mother Cancer Brother Cancer Sister Hypertension Mental health problem Social History household members: spouse Smoking Status: Never smoker alcohol intake: never Smoking Status: Never smoker alcohol intake frequency: 0-2 drinks per day Substance Use Type: does not use Exam Initial Vital Signs Initial Vital Signs: Vital Signs Temperature 97.9 F 03/05/22 10:38 Pulse Rate 95 H 03/05/22 10:38 Respiratory Rate 20 03/05/22 10:38 Blood Pressure 126/107 H 03/05/22 10:38 Pulse Oximetry 100 03/05/22 10:38 Oxygen Delivery Method 03/05/22 10:38 GENERAL: Weeks in alert 72-year-old male no acute distress HEENT: Head atraumatic,EOMI, pupils reactive, face symmetric, moist mucous membranes CARDIOVASCULAR: Regular rate and rhythm without murmurs, rubs or gallops. RESPIRATORY: Breath sounds equal bilaterally, no wheezes rales or rhonchi. EXTREMITIES: Normal range of motion, no clubbing or edema. Neurovascularly intact Left shoulder scar noted distal radial pulse intact sensation in deltoid intact, fullness in abnormality noted NEUROLOGICAL: Amoving all extremities no deformity SKIN: Warm, dry, no laceration, no petechiae, no rashes or lesions. Procedures Orthopedic Joint Reduction Joint #1: Side: left Joint Reduction Location: shoulder Analgesia: procedural sedation Shoulder Technique Used (if applicable): traction/counter-traction and external rotation Post-reduction neuro exam: intact Post-reduction vascular: intact Post Reduction X-Ray Obtained: Yes Post Reduction X-Ray Results: reduced Splint Applied: Yes Orthopedic Splinting/Casting Injury #1: Upper Extremity Injury Location: shoulder Upper Extremity Immobilizer: sling/shoulder immobilizer Post splinting neuro exam: intact Post splinting vascular exam: intact Procedural Sedation Indication: fracture/dislocation reduction ASA Class: II Mallampati Airway Classification: Class II IV Propofol dose (mg): 70 Intraservice time/total sedation time (min): 12 ED Sedation Level: Moderate (Concious) Patient Tolerated Procedure: Well and No complications Complications: none Course Orders Ordered: ED Orders 03/05/22 10:37 XR shoulder LT min 2V Stat 03/05/22 14:18 XR shoulder LT min 2V Stat Discontinued Medications Propofol (Propofol 200 Mg/20 Ml Vial) 75 mg 1 mg/kg (75 mg) IV NOW ONE Stop: 03/05/22 12:52 Last Admin: 03/05/22 14:10 Dose: 70 mg Documented By: CTS Vital Signs Vital signs: Vital Signs - 8 hr 03/05/22 14:21 03/05/22 13:51 03/05/22 13:51 Pulse Rate 55 L 58 L Respiratory Rate 16 Blood Pressure 145/79 H Pulse Oximetry 99 03/05/22 13:55 03/05/22 14:00 03/05/22 14:00 Pulse Rate 56 L 56 L Respiratory Rate 16 16 Blood Pressure 145/84 H Pulse Oximetry 99 98 03/05/22 14:05 03/05/22 14:10 03/05/22 14:15 Pulse Rate 55 L 56 L 65 Respiratory Rate 15 15 26 H Blood Pressure Pulse Oximetry 100 99 99 03/05/22 14:19 03/05/22 14:19 03/05/22 14:20 Pulse Rate 58 L Respiratory Rate 18 Blood Pressure 123/79 122/78 Pulse Oximetry 97 03/05/22 14:20 03/05/22 14:25 03/05/22 14:25 Pulse Rate 58 L 57 L Respiratory Rate 19 18 Blood Pressure 124/79 Pulse Oximetry 97 99 03/05/22 14:30 03/05/22 14:30 03/05/22 14:35 Pulse Rate 54 L Respiratory Rate 15 Blood Pressure 126/82 146/81 H Pulse Oximetry 95 03/05/22 14:35 03/05/22 14:40 03/05/22 14:40 Pulse Rate 59 L 64 Respiratory Rate 15 15 Blood Pressure 150/87 H Pulse Oximetry 100 99 03/05/22 14:45 03/05/22 14:45 03/05/22 14:50 Pulse Rate 62 61 Respiratory Rate 19 17 Blood Pressure 156/85 H Pulse Oximetry 100 100 03/05/22 14:50 03/05/22 15:00 03/05/22 15:00 Pulse Rate 65 Respiratory Rate 17 Blood Pressure 152/86 H 148/88 H Pulse Oximetry 98 MDM - Extremity Injury (Upper) Imaging Data Extremity x-ray #1: Radiologist's Impression: : Deni Garcia MR#: [id number] : 1950 Acct:[id number] Age/Sex: 72 / M Date of Service: 03/05/22 Loc: ED Accession Number: [id number] ?? Procedure: XR shoulder LT min 2V Ordering Provider: Jeni Wynne D.O. PROCEDURE:? XR SHOULDER LT MIN 2V ? INDICATIONS:? fall ? TECHNIQUE:? 2 views of the shoulder were acquired.? ? COMPARISON:? None. ? FINDINGS:? ? Bones:? The humeral head is located inferior to the glenohumeral joint space.? No definitive fracture. ? Soft tissues:? No suspicious soft tissue calcifications.? ? IMPRESSION:? Anterior dislocation without visualized fracture. ? ? Dictated by: Veena Oliveira M.D. on 03/05/2022 at 11:33 ?? Extremity x-ray #2: Radiologist's Impression: Signed Patient: Deni Garcia MR#: [id number] : 1950 Acct:[id number] Age/Sex: 72 / M Date of Service: 03/05/22 Loc: ED Accession Number: [id number] ?? Procedure: XR shoulder LT min 2V Ordering Provider: Jeni Wynne D.O. PROCEDURE:? XR SHOULDER LT MIN 2V ? INDICATIONS:? reduction ? TECHNIQUE:? 2 views of the shoulder were acquired.? ? COMPARISON:? [facility], , XR SHOULDER LT MIN 2V, 03/05/2022, 10:39. ? FINDINGS:? ? Bones:? Interval reduction of earlier noted anterior-inferior dislocation at glenohumeral joint is seen.? Left shoulder alignment is now anatomic.? No dislocation is seen.? Hill-Sachs defect involving posterior lateral humeral head is noted.? No other fracture is seen.? Moderate acromioclavicular joint and glenohumeral joint osteoarthritic changes are seen.? No suspicious bony lesions.? Visualized ribs appear intact.? ? Soft tissues:? No suspicious soft tissue calcifications.? ? IMPRESSION:? Interval reduction of earlier noted glenohumeral joint dislocation with now anatomic shoulder alignment.? Hill-Sachs defect involving left humeral head.? No other fracture is seen.? Moderate shoulder joint osteoarthritis. ? ? Dictated by: Jose Ryan M.D. on 03/05/2022 at 14:35 ? ? Approved by: Jose Ryan M.D. on 03/05/2022 at 14:40 ? MDM Narrative Medical decision making narrative: Patient signed have an anterior shoulder dislocation that has been ongoing for the last few days. He actually able to move it. Patient was successfully reduced, sling. Discharge Plan Departure Patient Disposition: Home Clinical Impression: Anterior shoulder dislocation Instructions: DI for Shoulder Dislocation Activity Restrictions/Additional Instructions: *You have been diagnosed with left shoulder dislocation *What to do: Expect to be sore for a couple of days. Worsening as needed be sure to take shoulder out and move around *Continue to take medications as directed [place] 1 tablet every 6 hours if needed for severe pain--> sent to [facility] *Follow up with your primary care provider in 2-3 days or call [phone] *Return to ER if you should have increasing pain falls confusion or any new, worsening or concerning symptoms CONTROLLED SUBSTANCE DISCHARGE (Narcotoic/benzodiazepine/Flexeril/Phenergan) 1. You have been prescribed narcotic medications, it does have acetaminophen/Tylenol/paracetamol in it, DO NOT TAKE MORE THAN 4,00mg in 24 hours of Tylenol. TRAMADOL DOES NOT CONTAIN TYLENOL 2. Please understand that we cannot provide further refills of narcotics, benzodiazepines or controlled substances through the ED and her pain management will need to be through your provider. 3. While on these medications you cannot drive or operate heavy machinery. 4. You cannot sign legal documents or perform any duties such as this. 5. As long as you're taking opiate pain medications he should also be taking a stool softener such as Colace, Dulcolax, MiraLAX or prune juice, to help avoid constipation. Prescriptions: New hydrocodone-acetaminophen 5-325 mg tablet 1 tab PO Q6H PRN (Reason: pain) Qty: 10 0RF No Action nitrofurantoin monohyd/m-cryst [Macrobid] 100 mg capsule 100 mg PO Q12H 7 Days Qty: 14 1RF Rx Instructions: must administer with a meal/food clonazepam 0.5 mg tablet 0.5 mg PO BEDTIME PRN (Reason: insomnia) Qty: 30 1RF Rx Instructions: 1/2 to 1 tab administered 30 minutes before bedtime carbidopa-levodopa 25-100 mg Tablet Extended Release 2 tab PO QID Rx Instructions: 0700, 1000, 1300, 1600 carbidopa-levodopa 25-100 mg Tablet 2 tab PO QID Rx Instructions: 0700, 1000, 1300, 1600 sulfamethoxazole-trimethoprim [Bactrim] 400-80 mg tablet 1 tab PO BID Qty: 14 0RF phenazopyridine [Pyridium] 100 mg tablet 100 mg PO TID PRN (Reason: pain) Qty: 6 0RF Referrals: Deni Montenegro MD [Primary Care Provider] - Visit Report Forms: Patient Portal/API
[2022-03-05] MEDS: propofoL 200 MG/20 ML VIAL 75 MG IV (14:10)
--- NOTE | 2022-03-05 14:18 | DI.RAD.S_ITS ---
PROCEDURE: XR SHOULDER LT MIN 2V INDICATIONS: reduction TECHNIQUE: 2 views of the shoulder were acquired. COMPARISON: [facility], CR, XR SHOULDER LT MIN 2V, 03/05/2022, 10:39. FINDINGS: Bones: Interval reduction of earlier noted anterior-inferior dislocation at glenohumeral joint is seen. Left shoulder alignment is now anatomic. No dislocation is seen. Hill-Sachs defect involving posterior lateral humeral head is noted. No other fracture is seen. Moderate acromioclavicular joint and glenohumeral joint osteoarthritic changes are seen. No suspicious bony lesions. Visualized ribs appear intact. Soft tissues: No suspicious soft tissue calcifications. IMPRESSION: Interval reduction of earlier noted glenohumeral joint dislocation with now anatomic shoulder alignment. Hill-Sachs defect involving left humeral head. No other fracture is seen. Moderate shoulder joint osteoarthritis. Dictated by: Jose Ryan M.D. on 03/05/2022 at 14:35 Approved by: Jose Ryan M.D. on 03/05/2022 at 14:40
--- NOTE | 2022-03-05 14:49 | PC.NURSE ---
pt has stage 5 parkinsons per and took a fall in the house 3 days ago. appears to have dislocated shoulder. 2+ pulses. pt drowsy at baseline from parkinsons medications. denies pain meds at this time.
== END 2022-03-05 15:25 | disposition home or self-care (01) ==
PROVIDERS: Emergency Provider Emergency Medicine; PCP Pediatrics
DX: S43.005A Unspecified dislocation of left shoulder joint, initial encounter (principal); G20 Parkinson's disease; W19.XXXA Unspecified fall, initial encounter
CPT/HCPCS: 23650; 36415; 73030; 99152; 99284; 99285; J2704

== ENCOUNTER 2022-07-08 19:23 | Emergency (ER) | payer MEDICARE, OTHER, SELFPAY ==
[2021-12-26 17:36] VITALS: BMI 23.7
[2022-07-08 19:40] VITALS: BP 217/117; PULSE 56; RESP 18; TEMP 36.3; O2SAT 98
--- NOTE | 2022-07-08 19:55 | DI.RAD.S_ITS ---
PROCEDURE: XR SHOULDER RT MIN 2V INDICATIONS: ? dislocation TECHNIQUE: 3 views of the shoulder were acquired. COMPARISON: [facility], CR, XR SHOULDER LT MIN 2V, 03/05/2022, 14:14. FINDINGS: Bones: There is anterior dislocation of the right glenohumeral joint. No displaced fracture identified. No suspicious bony lesions. Visualized ribs appear intact. Soft tissues: No suspicious soft tissue calcifications. IMPRESSION: 1. Anterior dislocation of the right glenohumeral joint. Dictated by: Shakir Malik M.D. on 07/08/2022 at 20:15 Approved by: Shakir Malik M.D. on 07/08/2022 at 20:16
[2022-07-08 20:14] VITALS: PULSE 74
--- NOTE | 2022-07-08 20:18 | ED.UPPEXIN ---
HPI - Extremity Injury (Upper) General Chief Complaint: Extremity Injury, Upper Stated Complaint: Dislocated R shoulder Time Seen by Provider: 07/08/22 19:58 Source: patient Mode of arrival: Wheelchair History of Present Illness HPI narrative: Patient brought in from home by . Complaints of right shoulder pain/deformity. Patient has history of Parkinson's, unstable on his feet. He states he lost his balance near the bed and fell down and posterior it is arm out to break his fall. Denies any other injuries. Has history of frequent dislocations of the left shoulder, has very significant damage to his rotator cuff with easy dislocations of the left shoulder. Never had dislocations to his right shoulder in the past. Blood pressure noted. Patient does have significant pain. He is alert and oriented and responsive. Related Data Home Medications Medication Instructions Recorded Confirmed carbidopa 25 mg-levodopa 100 mg 2 tab PO QID 12/26/21 12/26/21 tablet carbidopa ER 25 mg-levodopa 100 mg 2 tab PO QID 12/26/21 12/26/21 tablet,extended release Previous Rx's Medication Instructions Recorded phenazopyridine 100 mg tablet 100 mg PO TID PRN pain 6 doses #6 01/03/22 (Pyridium) tabs sulfamethoxazole 400 1 tab PO BID #14 tabs 01/03/22 mg-trimethoprim 80 mg tablet (Bactrim) hydrocodone 5 mg-acetaminophen 325 1 tab PO Q6H PRN pain #10 tabs 03/05/22 mg tablet nitrofurantoin 100 mg PO Q12H 7 days #14 caps 03/17/22 monohydrate/macrocrystals 100 mg capsule (Macrobid) clonazepam 0.5 mg tablet 0.5 mg PO BEDTIME PRN insomnia #30 03/31/22 tabs Allergies Allergy/AdvReac Type Severity Reaction Status Date / Time No Known Drug Allergies Allergy Verified 12/26/21 12:20 Review of Systems Review of Systems Narrative: GENERAL: negative chills, fatigue, malaise, fever, sweats. HEENT: negative sinus pain, ear pain, sore throat RESPIRATORY: negative dyspnea, cough CARDIOVASCULAR: negative chest pain, palpitations GASTROINTESTINAL: negative nausea, vomiting, abdominal pain : negative dysuria, frequency, hematuria MUSCULOSKELETAL: Positive muscle or bony pain SKIN: negative rash, skin lesions NEUROLOGIC: negative weakness, numbness ROS Unobtainable: All systems reviewed & are unremarkable except as noted in HPI and below Patient History Medical History H/O recurrent urinary tract infection History of urinary incontinence (~2020) Parkinson disease (~2013) Vision disorder Surgical History Anesthesia No pertinent past surgical history Status post left rotator cuff repair Family History Father Alzheimer's disease Mother Cancer Brother Cancer Sister Hypertension Mental health problem Social History household members: spouse Smoking Status: Never smoker alcohol intake: never Smoking Status: Never smoker alcohol intake frequency: 0-2 drinks per day Substance Use Type: does not use Exam Narrative Exam Narrative: GENERAL: in no distress, not toxic not dyspneic HEAD: Normocephalic. EYES: Pupils equal round NECK: Trachea midline. CARDIOVASCULAR: Regular rate and rhythm without murmurs RESPIRATORY: Clear to auscultation. Breath sounds equal bilaterally. No wheezes, rales, or rhonchi. EXTREMITIES: No gross deformities. Right shoulder to fingertips exposed. There is drop off deformity of the right shoulder. Limited range of motion of the right shoulder due to pain. 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 Does have a resting tremor. Strong radial pulse light touch intact to fingers and thumb. Nontender wrist and elbow. NEURO: AOx4. SKIN: Warm and dry PSYCH: Not anxious, is cooperative Initial Vital Signs Initial Vital Signs: Vital Signs Temperature 97.3 F L 07/08/22 19:40 Pulse Rate 56 L 07/08/22 19:40 Respiratory Rate 18 07/08/22 19:40 Blood Pressure 217/117 H 07/08/22 19:40 Pulse Oximetry 98 07/08/22 19:40 Oxygen Delivery Method 07/08/22 19:40 Procedures Orthopedic Joint Reduction Joint #1: Time of procedure: 20:49 Time Out Performed: Yes Side: right Joint Reduction Location: shoulder Analgesia: other (Dilaudid IV) Shoulder Technique Used (if applicable): traction/counter-traction Technique used: traction/counter-traction Post-reduction neuro exam: intact Post-reduction vascular: intact Post Reduction X-Ray Obtained: Yes Post Reduction X-Ray Results: reduced Patient Tolerated Procedure: Well and No complications Additional Comments: Patient has his own shoulder sling that he brought with him. Course Orders Ordered: ED Orders 07/08/22 19:55 XR shoulder RT min 2V Stat 07/08/22 20:48 XR shoulder RT min 2V Stat Discontinued Medications Hydromorphone HCl (Hydromorphone 1 Mg Inj) 1 mg IV NOW ONE Stop: 07/08/22 20:17 Last Admin: 07/08/22 20:27 Dose: 1 mg Documented By: EBER Ondansetron HCl (Ondansetron 4 Mg/2 Ml Inj) 4 mg IV NOW ONE Stop: 07/08/22 20:17 Last Admin: 07/08/22 20:27 Dose: 4 mg Documented By: EBER Vital Signs Vital signs: Vital Signs - 8 hr 07/08/22 20:14 07/08/22 22:12 Temperature 98 F Pulse Rate 78 Pulse Rate [Right Radial] 74 Respiratory Rate 18 Blood Pressure 154/88 H Pulse Oximetry 97 Oxygen Delivery Method Room Air MDM - Extremity Injury (Upper) Differential Diagnosis Differential diagnosis: Likely dislocation of shoulder, fracture of humerus and fracture of clavicle Imaging Data Extremity x-ray #1: Radiologist's Impression: [address] [address] XRay Report Signed Patient: Deni Garcia MR#: [id number] : 1950 Acct:[id number] Age/Sex: 72 / M Date of Service: 07/08/22 Loc: ED Accession Number: [id number] ?? Procedure: XR shoulder RT min 2V Ordering Provider: Corey Dong MD PROCEDURE:? XR SHOULDER RT MIN 2V ? INDICATIONS:? ? dislocation ? TECHNIQUE:? 3 views of the shoulder were acquired.? ? COMPARISON:? [facility], CR, XR SHOULDER LT MIN 2V, 03/05/2022, 14:14. ? FINDINGS:? ? Bones:? There is anterior dislocation of the right glenohumeral joint.? No displaced fracture identified.? No suspicious bony lesions.? Visualized ribs appear intact.? ? Soft tissues:? No suspicious soft tissue calcifications.? ? IMPRESSION:? ? 1. Anterior dislocation of the right glenohumeral joint. ? ? Dictated by: Shakir Malik M.D. on 07/08/2022 at 20:15 ? ? Approved by: Shakir Malik M.D. on 07/08/2022 at 20:16 ? Extremity x-ray #2: Radiologist's Impression: [address] [address] XRay Report Signed Patient: Deni Garcia MR#: [id number] : 1950 Acct:[id number] Age/Sex: 72 / M Date of Service: 07/08/22 Loc: ED Accession Number: [id number] ?? Procedure: XR shoulder RT min 2V Ordering Provider: Corey Dong MD PROCEDURE:? XR SHOULDER RT MIN 2V ? INDICATIONS:? Post reduction ? TECHNIQUE:? 2 views of the shoulder were acquired.? ? COMPARISON:? [facility], CR, XR SHOULDER RT MIN 2V, 07/08/2022, 19:53. ? FINDINGS:? ? Bones:? There is interval reduction of the previously dislocated right glenohumeral joint.? No discrete fracture identified on the current study.? No suspicious bony lesions.? Visualized ribs appear intact.? ? Soft tissues:? No suspicious soft tissue calcifications.? ? IMPRESSION:? ? 1. Interval reduction of the previously dislocated right glenohumeral joint. ? 2. No definite fractures identified on the current study.? ? ? Dictated by: Shakir Malik M.D. on 07/08/2022 at 22:10 ? ? Approved by: Shakir Malik M.D. on 07/08/2022 at 22:10 ? [facility] Narrative Medical decision making narrative: Patient brought in from home by . Complaints of right shoulder pain/deformity. Patient has history of Parkinson's, unstable on his feet. He states he lost his balance near the bed and fell down and posterior it is arm out to break his fall. Denies any other injuries. Has history of frequent dislocations of the left shoulder, has very significant damage to his rotator cuff with easy dislocations of the left shoulder. Never had dislocations to his right shoulder in the past. Blood pressure noted. Patient does have significant pain. He is alert and oriented and responsive. After evaluation and exam, x-ray shoulder ordered as well as pain medication Dilaudid ordered. I did speak with patient and . Will try pain medication for passive closed reduction of the shoulder. Patient just ate dinner. Will try to avoid at this time conscious sedation MDM CC: Right shoulder pain Complicating co-morbidities: Parkinson's Data collected from: Patient and Medical records reviewed: March 05, 2022 for anterior shoulder dislocation Differential considered: Includes but not limited to shoulder dislocation/fracture/strain/sprain Exam documented above, pertinent findings include: Drop off/deformity of anterior right shoulder Imaging studies independently reviewed: Anterior dislocation right shoulder Treatments: IV Dilaudid/shoulder reduction Re-evaluations: 8:51 p.m.. Pain has improved. Shoulder feels much better and feels in place. Patient tolerated reduction very well. 10:05 p.m.. Spoke with . He is due for his home meds and they can not wait any longer for the x-ray results. They do desire discharge home. Pain is controlled. Patient is in his home sling. After departure, repeat right shoulder x-ray was redone and does show interval reduction of the previously dislocated right shoulder joint Discussion: Appropriate for discharge home. Patient and state they have had many dislocations in the past when they lived out of town. No specialist to follow as they state there is nothing to do given severity of his shoulder disease. Return precautions reviewed with them. Referral for Orthopedics given. They desire discharge home. Diagnosis: Right anterior shoulder dislocation Disposition: see below, along with detailed discharge instructions that have been reviewed with patient as well as indications for ED re-evaluation and additional outpatient follow up Discharge Plan Departure Patient Disposition: Home Clinical Impression: Anterior dislocation of right shoulder Instructions: DI for Shoulder Dislocation Activity Restrictions/Additional Instructions: Call provided orthopedic office tomorrow for office re-evaluation next week. Please use home sling for comfort. Do not raise hand above the head or behind the back. Return if worse if any questions or concerns. Prescriptions: No Action nitrofurantoin monohyd/m-cryst [Macrobid] 100 mg capsule 100 mg PO Q12H 7 Days Qty: 14 1RF Rx Instructions: must administer with a meal/food clonazepam 0.5 mg tablet 0.5 mg PO BEDTIME PRN (Reason: insomnia) Qty: 30 1RF Rx Instructions: 1/2 to 1 tab administered 30 minutes before bedtime carbidopa-levodopa 25-100 mg Tablet Extended Release 2 tab PO QID Rx Instructions: 0700, 1000, 1300, 1600 carbidopa-levodopa 25-100 mg Tablet 2 tab PO QID Rx Instructions: 0700, 1000, 1300, 1600 sulfamethoxazole-trimethoprim [Bactrim] 400-80 mg tablet 1 tab PO BID Qty: 14 0RF phenazopyridine [Pyridium] 100 mg tablet 100 mg PO TID PRN (Reason: pain) Qty: 6 0RF hydrocodone-acetaminophen 5-325 mg tablet 1 tab PO Q6H PRN (Reason: pain) Qty: 10 0RF Referrals: Hillary Carlin MD [Physician] - Deni Montenegro MD [Primary Care Provider] - Stand Alone Forms: Patient Portal/API
[2022-07-08] MEDS: HYDROMORPHONE 1 MG INJ IV (20:27)
[2022-07-08] MEDS: ONDANSETRON 4 MG/2 ML INJ IV (20:27)
--- NOTE | 2022-07-08 20:48 | DI.RAD.S_ITS ---
PROCEDURE: XR SHOULDER RT MIN 2V INDICATIONS: Post reduction TECHNIQUE: 2 views of the shoulder were acquired. COMPARISON: [facility], CR, XR SHOULDER RT MIN 2V, 07/08/2022, 19:53. FINDINGS: Bones: There is interval reduction of the previously dislocated right glenohumeral joint. No discrete fracture identified on the current study. No suspicious bony lesions. Visualized ribs appear intact. Soft tissues: No suspicious soft tissue calcifications. IMPRESSION: 1. Interval reduction of the previously dislocated right glenohumeral joint. 2. No definite fractures identified on the current study. Dictated by: Shakir Malik M.D. on 07/08/2022 at 22:10 Approved by: Shakir Malik M.D. on 07/08/2022 at 22:10
[2022-07-08] MEDS: HYDROMORPHONE 0.5 MG INJ 1 MG (21:10)
[2022-07-08 22:12] VITALS: BP 154/88; PULSE 78; RESP 18; TEMP 36.6; O2SAT 97
== END 2022-07-08 22:13 | disposition home or self-care (01) ==
PROVIDERS: Emergency Provider Emergency Medicine; PCP Pediatrics
DX: S43.004A Unspecified dislocation of right shoulder joint, initial encounter (principal); G20 Parkinson's disease; W18.30XA Fall on same level, unspecified, initial encounter
CPT/HCPCS: 23650; 73030; 96374; 96375; 99283; 99284; J1170; J2405

== ENCOUNTER 2023-01-21 16:35 | Inpatient (IN) | payer MEDICARE, OTHER, SELFPAY ==
[2021-12-26 17:36] VITALS: BMI 23.7
[2023-01-21] VITALS (45 sets, daily range): BP systolic 130–205; BP diastolic 70–108; PULSE 56–109; RESP 9–19; TEMP 36.9; O2SAT 93–98; BMI 27.3
--- NOTE | 2023-01-21 16:50 | DI.RAD.S_ITS ---
PROCEDURE: XR SHOULDER LT MIN 2V INDICATIONS: possible dislocation TECHNIQUE: 2 views of the shoulder were acquired. COMPARISON: [facility], CR, XR SHOULDER RT MIN 2V, 07/08/2022, 20:51. FINDINGS: Bones: Anterior, inferior dislocation of the left humeral head relative to the glenoid. Degenerative changes of the acromioclavicular joint. No definite shoulder fracture identified. Soft tissues: No suspicious soft tissue calcifications. IMPRESSION: Anterior, inferior dislocation of the left humeral head. No definite fracture seen. Dictated by: John Dubois M.D. on 01/21/2023 at 17:54 Approved by: John Dubois M.D. on 01/21/2023 at 17:55
--- NOTE | 2023-01-21 16:50 | DI.CT.S_ITS ---
PROCEDURE: CT FACIAL BONES WO CON INDICATIONS: fall with L eye injury TECHNIQUE: Noncontrast 2.5 mm thick axial images acquired from the mandible through the frontal sinuses, with coronal and sagittal reformatting. For radiation dose reduction, the following was used: automated exposure control, adjustment of mA and/or kV according to patient size. COMPARISON: [facility], CT, CT HEAD/BRAIN WO CON, 01/21/2023, 17:00. [facility], CT, CT CERVICAL SPINE WO CON, 01/21/2023, 17:00. [facility], CR, XR SHOULDER LT MIN 2V, 01/21/2023, 16:50. FINDINGS: Image quality: Excellent. Bones and teeth: There are mildly displaced fractures seen involving the anterior and the lateral andrade of the right maxillary sinus. Mildly displaced nasal bone fractures are seen. There is a minimally displaced fracture seen involving the right inferior orbital wall. Visualized portions of the mandible demonstrate no fractures or subluxation. Zygomatic arches are intact. Pterygoid plates are intact. Visualized portions of the skull base and auditory canals are intact. Sinuses: There is blood seen within the right maxillary sinus. Soft tissues: Right periorbital soft tissue swelling is seen. Vascular: Visualized vascular structures appear normal in the absence of contrast. Bony vascular foramina and canals are intact. IMPRESSION: Mildly displaced fractures can be seen involving the right inferior orbital wall, the anterior wall of the right maxillary sinus, and the lateral wall of the right maxillary sinus. Nasal bone fractures are also seen. There is associated blood seen within the right maxillary sinus. Right-sided periorbital soft tissue swelling can be seen. Dictated by: Jeremy Harris M.D. on 01/21/2023 at 16:35 Approved by: Jeremy Harris M.D. on 01/21/2023 at 16:36
--- NOTE | 2023-01-21 16:50 | DI.CT.S_ITS ---
PROCEDURE: CT HEAD/BRAIN WO CON INDICATIONS: fall and hit head TECHNIQUE: Noncontrast 4.5 mm thick angled axial sections acquired from the foramen magnum to the vertex, with coronal and sagittal reformats. For radiation dose reduction, the following was used: automated exposure control, adjustment of mA and/or kV according to patient size. COMPARISON: [facility], CT, CT CERVICAL SPINE WO CON, 01/21/2023, 17:00. [facility], CT, CT FACIAL BONES WO CON, 01/21/2023, 17:00. FINDINGS: Image quality: Excellent. CSF spaces: Basal cisterns are patent. No extra-axial fluid collections. The ventricles are symmetric in size and shape. Brain: No intracranial bleeds or masses. There is cerebral volume loss for age, with resultant ventricular and sulcal prominence. There are periventricular and deep white matter chronic small vessel ischemic changes. There is intracranial internal carotid artery atherosclerosis. Skull and face: Mildly displaced fractures can be seen involving the anterior and lateral andrade of the right maxillary sinus. Mildly displaced nasal bone fractures are seen. Sinuses: Blood is seen within the right maxillary sinus. Visualized sinuses and mastoids are otherwise relatively clear. IMPRESSION: No acute intracranial hemorrhage is seen. No acute intracranial process is seen. Nasal bone fractures and right maxillary sinus wall fractures can be seen. Associated blood can be seen within the right maxillary sinus. Dictated by: Jeremy Harris M.D. on 01/21/2023 at 16:33 Approved by: Jeremy Harris M.D. on 01/21/2023 at 16:35
--- NOTE | 2023-01-21 16:50 | DI.CT.S_ITS ---
PROCEDURE: CT CERVICAL SPINE WO CON INDICATIONS: fall TECHNIQUE: Noncontrast 3 mm thick sections acquired from the skull base to the T4 level. Sagittal and coronal reformats were then constructed. For radiation dose reduction, the following was used: automated exposure control, adjustment of mA and/or kV according to patient size. COMPARISON: [facility], CT, CT HEAD/BRAIN WO CON, 01/21/2023, 17:00. [facility], CT, CT FACIAL BONES WO CON, 01/21/2023, 17:00. [facility], CR, XR SHOULDER LT MIN 2V, 01/21/2023, 16:50. FINDINGS: Image quality: This examination is somewhat limited by quantum mottle artifact. Bones: No fractures or dislocations. Visualized superior ribs are intact. Blood is noted within the right maxillary sinus. Focal degenerative change is seen involving the C1-C2 interface anteriorly. There is moderate disc space narrowing seen at the C4-C5 level. Milder degenerative changes are seen elsewhere. Soft tissues: Prevertebral soft tissues are normal in thickness. No paravertebral hematomas. No apical pneumothoraces. Fluid is seen within the esophagus. Please correlate with reflux. IMPRESSION: No cervical spine fracture is seen. Blood seen within the right maxillary sinus. Cervical spine degenerative changes are seen. Dictated by: Jeremy Harris M.D. on 01/21/2023 at 16:37 Approved by: Jeremy Harris M.D. on 01/21/2023 at 16:38
--- NOTE | 2023-01-21 17:30 | PC.NURSE ---
Patient's is at bedside. excellent historian. she has patient's carbodopa-levodopa, was given with water with providers okay. Patient has since arrival become less responsive, not wanting to take his medications. states this is not normal.
--- NOTE | 2023-01-21 18:04 | ED.FALL ---
HPI - Fall General Chief Complaint: Fall Stated Complaint: Fall T-1, Slow Since Fall Time Seen by Provider: 01/21/23 16:45 Source: patient and EMS Mode of arrival: EMS History of Present Illness HPI Narrative: Patient 72-year-old male history of Parkinson's presents today after a ground level fall yesterday. reports that he runs because feels better he was running when he fell forward and landed his face. He has right eye contusion complaining of left shoulder pain. She reports no he has chronic shoulder problems and rotator cuff problems. He is actually been here and evaluated before with both shoulders dislocated. Really complaining of only left shoulder pain. also reports that since the fall yesterday he has been more confused today. He wears depends she reports that he woke up dry today he is not had very much to eat or drink. No fever. He is complaining some right eye pain as well. Related Data Home Medications Medication Instructions Recorded Confirmed carbidopa 25 mg-levodopa 100 mg 1.5 tab PO QID 12/26/21 01/22/23 tablet carbidopa ER 50 mg-levodopa 200 mg 1 tab PO ONCE PM 01/22/23 01/22/23 tablet,extended release Previous Rx's Medication Instructions Recorded hydrocodone 5 mg-acetaminophen 325 1 tab PO Q6H PRN pain #10 tabs 03/05/22 mg tablet clonazepam 0.5 mg tablet 0.5 mg PO BEDTIME PRN insomnia #30 03/31/22 tabs Allergies Allergy/AdvReac Type Severity Reaction Status Date / Time No Known Drug Allergies Allergy Verified 12/26/21 12:20 Review of Systems Review of Systems ROS Unobtainable: All systems reviewed & are unremarkable except as noted in HPI and below Patient History Medical History H/O recurrent urinary tract infection History of urinary incontinence (~2020) Parkinson disease (~2013) Vision disorder Surgical History Anesthesia No pertinent past surgical history Status post left rotator cuff repair Family History Father Alzheimer's disease Mother Cancer Brother Cancer Sister Hypertension Mental health problem Social History household members: spouse Smoking Status: Never smoker alcohol intake: never Smoking Status: Never smoker alcohol intake frequency: holidays/special occasions only Substance Use Type: does not use Exam Initial Vital Signs Initial Vital Signs: Vital Signs Temperature 98.4 F 01/21/23 16:42 Pulse Rate 106 H 01/21/23 16:42 Respiratory Rate 14 01/21/23 16:42 Blood Pressure 174/105 H 01/21/23 16:42 Pulse Oximetry 94 01/21/23 16:42 Oxygen Delivery Method Room Air 01/21/23 16:42 GENERAL: Alert 72-year-old male, sleepy minimal arousable HEENT: Head atraumatic, right periorbital contusion minimal swelling no laceration pupils are equal and pinpoint. Not able to follow commands for extraocular muscle are CARDIOVASCULAR: Regular rate and rhythm without murmurs, rubs or gallops. RESPIRATORY: Breath sounds equal bilaterally, no wheezes rales or rhonchi. ABDOMEN: Soft, nontender. Normoactive bowel sounds all 4 quadrants. No guarding or rebound. EXTREMITIES: Normal range of motion, no clubbing or edema. Neurovascularly intact Left shoulder AC step-off no clavicle step-off NEUROLOGICAL: Alert and oriented x3 responding to some questions SKIN: Warm, dry, no laceration, no petechiae, no rashes or lesions. Procedures Orthopedic Joint Reduction Joint #1: Time Out Performed: Yes Side: left Joint Reduction Location: shoulder Analgesia: procedural sedation Shoulder Technique Used (if applicable): traction/counter-traction and external rotation Post-reduction neuro exam: intact Post-reduction vascular: intact Post Reduction X-Ray Obtained: Yes Post Reduction X-Ray Results: reduced Procedural Sedation Consent signed: Yes Time out performed: Yes Indication: fracture/dislocation reduction Mallampati Airway Classification: Class II IV Propofol dose (mg): 50 Course Orders Ordered: ED Orders 01/21/23 17:58 Complete Blood Count AUTO DIFF Stat Comprehensive Metabolic Panel Stat Lipase Stat Procalcitonin Stat Troponin & CK Cardiac Panel Stat 01/21/23 18:06 Chest [XR chest 1V] Stat 01/21/23 22:08 UA Complete [Urinalysis and Microscopic] Stat 01/21/23 22:23 XR shoulder LT 1V Stat Acetaminophen (Acetaminophen 325 Mg Tablet) 650 mg PO Q6H PRN PRN Reason: Fever/Mild Pain (1-3) Hydrocodone Bitart/Acetaminophen (Hydrocodone/Acet 5/325 Tablet) 1 tab PO Q6H PRN PRN Reason: pain Amiodarone HCl (Amiodarone 200 Mg Tablet) 400 mg PO BID [facility] Carbidopa/Levodopa (Carbidopa-Levodopa 25/100 Tablet) 1.5 each PO QID [facility] Carbidopa/Levodopa (Carbidopa-Levodopa Er 50/200 Tablet) 1 each PO ONCE PM [facility] Clonazepam (Clonazepam 0.5 Mg Tablet) 0.5 mg PO BEDTIME PRN PRN Reason: insomnia Docusate Sodium (Docusate 100 Mg Capsule) 100 mg PO BID [facility] Sodium Chloride (Normal Saline 0.9%) 1,000 mls @ 1,000 mls/hr IV CONT [facility]ULA Last Infusion: 01/21/23 19:10 Dose: 0 mls/hr Documented By: Admin: 01/21/23 18:15 Dose: 1,000 mls/hr Documented By: GENNA Morphine Sulfate (Morphine 4 Mg/Ml Inj) 3 mg IV Q4HR PRN PRN Reason: Pain, Severe (7-10) Naloxone HCl (Naloxone 0.4 Mg/Ml Vial) 0.2 mg IV Q30MIN PRN PRN Reason: Opiate Reversal Ondansetron HCl (Ondansetron 4 Mg/2 Ml Inj) 4 mg IV Q8HR PRN PRN Reason: Nausea And Vomiting Phenazopyridine HCl (Phenazopyridine 100 Mg Tablet) 100 mg PO TID PRN PRN Reason: pain Discontinued Medications Carbidopa/Levodopa (Carbidopa-Levodopa 25/100 Tablet) 2 each PO QID [facility] Hydromorphone HCl (Hydromorphone 0.5 Mg Inj) 0.5 mg IV NOW ONE Stop: 01/21/23 19:28 Last Admin: 01/21/23 19:37 Dose: 0.5 mg Documented By: DAVID Hydromorphone HCl (Hydromorphone 0.5 Mg Inj) 0.5 mg IV NOW ONE Stop: 01/21/23 20:57 Last Admin: 01/21/23 21:00 Dose: 0.5 mg Documented By: DAVID Sodium Chloride (Normal Saline 0.9%) 1,000 mls @ 1,000 mls/hr IV BOLUS ONE Stop: 01/21/23 20:27 Last Infusion: 01/21/23 20:50 Dose: 0 mls/hr Documented By: Admin: 01/21/23 19:37 Dose: 1,000 mls/hr Documented By: DAVID Naloxone HCl (Naloxone 0.4 Mg/Ml Vial) 0.2 mg IV Q2MIN PRN PRN Reason: Opiate Reversal Propofol (Propofol 200 Mg/20 Ml Vial) 50 mg IV NOW ONE Stop: 01/21/23 21:28 Last Admin: 01/21/23 21:56 Dose: 50 mg Documented By: DAVID Vital Signs Vital signs: Vital Signs - 8 hr 01/21/23 18:45 01/21/23 18:45 01/21/23 19:00 Pulse Rate 61 76 Respiratory Rate 13 18 Blood Pressure 148/76 H Pulse Oximetry 96 95 Oxygen Delivery Method Oxygen Flow Rate 01/21/23 19:01 01/21/23 19:01 01/21/23 19:08 Pulse Rate 73 64 Respiratory Rate 16 14 Blood Pressure 205/108 H Pulse Oximetry 95 95 Oxygen Delivery Method Room Air Oxygen Flow Rate 01/21/23 19:08 01/21/23 19:15 01/21/23 19:15 Pulse Rate 62 Respiratory Rate 13 Blood Pressure 162/75 H 143/73 H Pulse Oximetry 95 Oxygen Delivery Method Room Air Oxygen Flow Rate 01/21/23 19:30 01/21/23 19:31 01/21/23 19:31 Pulse Rate 75 78 Respiratory Rate 19 18 Blood Pressure 185/104 H Pulse Oximetry Oxygen Delivery Method Oxygen Flow Rate 01/21/23 19:34 01/21/23 19:34 01/21/23 19:45 Pulse Rate 72 68 Respiratory Rate 16 13 Blood Pressure 156/77 H Pulse Oximetry 96 93 Oxygen Delivery Method Room Air Room Air Oxygen Flow Rate 01/21/23 19:45 01/21/23 20:00 01/21/23 20:00 Pulse Rate 61 Respiratory Rate 12 Blood Pressure 140/75 144/78 H Pulse Oximetry 94 Oxygen Delivery Method Room Air Oxygen Flow Rate 01/21/23 20:15 01/21/23 20:15 01/21/23 20:30 Pulse Rate 58 L Respiratory Rate 13 Blood Pressure 144/75 H 145/78 H Pulse Oximetry 94 Oxygen Delivery Method Oxygen Flow Rate 01/21/23 20:30 01/21/23 20:46 01/21/23 20:46 Pulse Rate 60 74 Respiratory Rate 16 Blood Pressure 165/86 H Pulse Oximetry 95 95 Oxygen Delivery Method Room Air Room Air Oxygen Flow Rate 01/21/23 20:50 01/21/23 20:55 01/21/23 21:00 Pulse Rate 75 67 Respiratory Rate 17 14 Blood Pressure 149/79 H Pulse Oximetry 95 95 Oxygen Delivery Method Room Air Oxygen Flow Rate 01/21/23 21:00 01/21/23 21:05 01/21/23 21:10 Pulse Rate 66 72 67 Respiratory Rate 14 17 14 Blood Pressure Pulse Oximetry 94 94 94 Oxygen Delivery Method Room Air Room Air Oxygen Flow Rate 01/21/23 21:15 01/21/23 21:16 01/21/23 21:16 Pulse Rate 62 64 Respiratory Rate 12 13 Blood Pressure 142/83 H Pulse Oximetry 93 94 Oxygen Delivery Method Room Air Room Air Oxygen Flow Rate 01/21/23 21:20 01/21/23 21:25 01/21/23 21:30 Pulse Rate 63 63 Respiratory Rate 13 12 Blood Pressure 155/84 H Pulse Oximetry 94 94 Oxygen Delivery Method Room Air Oxygen Flow Rate 01/21/23 21:30 01/21/23 21:35 01/21/23 21:40 Pulse Rate 62 60 61 Respiratory Rate 12 12 14 Blood Pressure Pulse Oximetry 94 94 94 Oxygen Delivery Method Room Air Room Air Oxygen Flow Rate 01/21/23 21:41 01/21/23 21:41 01/21/23 21:45 Pulse Rate 60 Respiratory Rate 12 Blood Pressure 148/70 H 144/77 H Pulse Oximetry 94 Oxygen Delivery Method Oxygen Flow Rate 01/21/23 21:45 01/21/23 21:50 01/21/23 21:50 Pulse Rate 62 61 Respiratory Rate 12 12 Blood Pressure 139/73 Pulse Oximetry 94 94 Oxygen Delivery Method Room Air Room Air Oxygen Flow Rate 01/21/23 21:55 01/21/23 21:55 01/21/23 22:00 Pulse Rate 61 Respiratory Rate 13 Blood Pressure 134/76 145/84 H Pulse Oximetry 94 Oxygen Delivery Method Room Air Oxygen Flow Rate 01/21/23 22:00 01/21/23 22:05 01/21/23 22:05 Pulse Rate 58 L 56 L Respiratory Rate 12 10 L Blood Pressure 130/70 Pulse Oximetry 96 97 Oxygen Delivery Method Nasal Cannula Nasal Cannula Oxygen Flow Rate 2 2 01/21/23 22:10 01/21/23 22:10 01/21/23 22:15 Pulse Rate 56 L 58 L Respiratory Rate 9 L Blood Pressure 139/72 Pulse Oximetry 98 97 Oxygen Delivery Method Nasal Cannula Room Air Oxygen Flow Rate 2 01/21/23 22:15 01/21/23 22:20 01/21/23 22:20 Pulse Rate 61 Respiratory Rate 18 Blood Pressure 139/74 169/84 H Pulse Oximetry 97 Oxygen Delivery Method Room Air Oxygen Flow Rate 01/21/23 22:25 01/21/23 22:25 01/21/23 22:30 Pulse Rate 61 Respiratory Rate 11 L Blood Pressure 148/75 H 161/79 H Pulse Oximetry 97 Oxygen Delivery Method Room Air Oxygen Flow Rate 01/21/23 22:30 01/21/23 23:00 01/21/23 23:00 Pulse Rate 59 L 60 Respiratory Rate 11 L Blood Pressure 146/75 H Pulse Oximetry 98 96 Oxygen Delivery Method Room Air Oxygen Flow Rate 01/21/23 23:30 01/21/23 23:30 Pulse Rate 60 Respiratory Rate 11 L Blood Pressure 153/80 H Pulse Oximetry 95 Oxygen Delivery Method Oxygen Flow Rate MDM - Fall Lab Data 01/21/23 17:58 01/21/23 17:58 Labs: Lab Results 01/21/23 01/21/23 01/21/23 Range/Units 17:58 17:58 22:08 WBC 8.5 (4.5-11.0) X10^3/uL RBC 4.93 (4.5-5.9) X10^6/uL Hgb 15.2 (13.5-17.5) g/dL Hct 44.0 (41-53) % MCV 89.2 (80-100) fL MCH 30.8 (26-34) PG MCHC 34.5 (30-36) % RDW 13.7 (11.6-14.8) % Plt Count 249 (150-400) X10^3/uL Neut % (Auto) 87.2 H (50-75) % Lymph % (Auto) 4.4 L (25-40) % [place] % (Auto) 7.8 (3-14) % Eos % (Auto) 0.3 L (2-4) % Baso % (Auto) 0.3 (0-2) % Neut # (Auto) 7400 H (8944-5377) /uL Lymph # (Auto) 400 L (6187-7607) /uL [place] # (Auto) 700 (0-900) /uL Eos # (Auto) 0 (0-450) /uL Baso # (Auto) 0 (0-100) /uL Sodium 134 L (137-145) mmol/L Potassium 4.5 (3.4-5.1) mmol/L Chloride 100 (98-107) mmol/L Carbon Dioxide 24 (22-32) mmol/L BUN 26 H (9-20) mg/dL Creatinine 0.82 (0.66-1.25) mg/dL Estimated GFR > 60 (>60) mL/min BUN/Creatinine Ratio 31.7 H (6-22) Glucose 130 H (80-110) mg/dL Calcium 9.0 (8.4-10.2) mg/dL Total Bilirubin 1.4 H (0.2-1.3) mg/dL AST 32 (17-59) IU/L ALT 10 (<50) IU/L Alkaline Phosphatase 98 (38-126) U/L Total Creatine Kinase 452 H (55-170) U/L Troponin I 0.015 (0.01-0.034) ng/mL Total Protein 7.3 (6.3-8.2) g/dL Albumin 4.2 (3.5-5.0) g/dL Globulin 3.1 (1.7-4.1) g/dL Albumin/Globulin Ratio 1.4 (1.0-2.8) Lipase 72 (23-300) U/L Procalcitonin 0.39 (<0.5) ng/mL Urine Color Yellow Urine Appearance Clear Urine pH 5.5 (4.5-8.0) Ur Specific [place] 1.025 (1.000-1.035) Urine Protein Negative (Negative) Urine Glucose (UA) Negative (Negative) g/dL Urine Ketones Trace H (NEGATIVE) Urine Occult Blood Trace-intact (Negative) Urine Nitrate Negative (Negative) Urine Bilirubin Negative (NEGATIVE) Urine Urobilinogen 0.2 (0.2) E.U./dL Ur Leukocyte Esterase Negative (NEGATIVE) Urine RBC 1-5/hpf (0-5/HPF) Urine WBC None seen (0-5/HPF) Ur Squamous Epith Cells 1-5 /hpf (0-5/HPF) Urine Bacteria Occasional (0-1) (None) Hyaline Casts 0-1/lpf (None) Urine Mucus 1+ H (Negative) Ur Culture Indicated? Cult not indicated Imaging Data CT scan - head: Radiologist's Impression: PROCEDURE:? CT HEAD/BRAIN WO CON ? INDICATIONS:? fall and hit head ? TECHNIQUE:? Noncontrast 4.5 mm thick angled axial sections acquired from the foramen magnum to the vertex, with coronal and sagittal reformats.? For radiation dose reduction, the following was used:? automated exposure control, adjustment of mA and/or kV according to patient size.? ? COMPARISON:? [facility], CT, CT CERVICAL SPINE WO CON, 01/21/2023, 17:00.? [facility], CT, CT FACIAL BONES WO CON, 01/21/2023, 17:00. ? FINDINGS:? Image quality:? Excellent.? ? CSF spaces:? Basal cisterns are patent.? No extra-axial fluid collections.? The ventricles are symmetric in size and shape.? ? Brain:? No intracranial bleeds or masses.? There is cerebral volume loss for age, with resultant ventricular and sulcal prominence.? There are periventricular and deep white matter chronic small vessel ischemic changes.? There is intracranial internal carotid artery atherosclerosis.? ? Skull and face:? Mildly displaced fractures can be seen involving the anterior and lateral andrade of the right maxillary sinus.? Mildly displaced nasal bone fractures are seen. ? Sinuses:? Blood is seen within the right maxillary sinus.? Visualized sinuses and mastoids are otherwise relatively clear.? ? ? IMPRESSION:? No acute intracranial hemorrhage is seen.? ? No acute intracranial process is seen.? ? Nasal bone fractures and right maxillary sinus wall fractures can be seen. ? Associated blood can be seen within the right maxillary sinus. ? ? Dictated by: Jeremy Harris M.D. on 01/21/2023 at 16:33 ? ? CT - cervical spine: Radiologist's Impression: PROCEDURE:? CT CERVICAL SPINE WO CON ? INDICATIONS:? fall ? TECHNIQUE:? Noncontrast 3 mm thick sections acquired from the skull base to the T4 level.? Sagittal and coronal reformats were then constructed.? For radiation dose reduction, the following was used:? automated exposure control, adjustment of mA and/or kV according to patient size.? ? COMPARISON:? [facility], CT, CT HEAD/BRAIN WO CON, 01/21/2023, 17:00.? [facility], CT, CT FACIAL BONES WO CON, 01/21/2023, 17:00.? [facility], CR, XR SHOULDER LT MIN 2V, 01/21/2023, 16:50. ? FINDINGS:? Image quality:? This examination is somewhat limited by quantum mottle artifact.? ? ? Bones:? No fractures or dislocations.? Visualized superior ribs are intact.? ? Blood is noted within the right maxillary sinus. ? Focal degenerative change is seen involving the C1-C2 interface anteriorly.? There is moderate disc space narrowing seen at the C4-C5 level.? Milder degenerative changes are seen elsewhere.? ? Soft tissues:? Prevertebral soft tissues are normal in thickness.? No paravertebral hematomas.? No apical pneumothoraces.? Fluid is seen within the esophagus.? Please correlate with reflux. ? ? IMPRESSION:? No cervical spine fracture is seen. ? Blood seen within the right maxillary sinus. ? Cervical spine degenerative changes are seen. ? ? Dictated by: Jeremy Harris M.D. on 01/21/2023 at 16:37 ?? CT Face: Radiologist's Impression: PROCEDURE:? CT FACIAL BONES WO CON ? INDICATIONS:? fall with L eye injury ? TECHNIQUE:? Noncontrast 2.5 mm thick axial images acquired from the mandible through the frontal sinuses, with coronal and sagittal reformatting.? For radiation dose reduction, the following was used:? automated exposure control, adjustment of mA and/or kV according to patient size.? ? COMPARISON:? [facility], CT, CT HEAD/BRAIN WO CON, 01/21/2023, 17:00.? [facility], CT, CT CERVICAL SPINE WO CON, 01/21/2023, 17:00.? [facility], CR, XR SHOULDER LT MIN 2V, 01/21/2023, 16:50. ? FINDINGS:? Image quality:? Excellent.? ? Bones and teeth:? There are mildly displaced fractures seen involving the anterior and the lateral andrade of the right maxillary sinus.? Mildly displaced nasal bone fractures are seen.? There is a minimally displaced fracture seen involving the right inferior orbital wall. ? Visualized portions of the mandible demonstrate no fractures or subluxation.? Zygomatic arches are intact.? Pterygoid plates are intact.? Visualized portions of the skull base and auditory canals are intact.? ? Sinuses:? There is blood seen within the right maxillary sinus. ? Soft tissues:? Right periorbital soft tissue swelling is seen. ? Vascular:? Visualized vascular structures appear normal in the absence of contrast.? Bony vascular foramina and canals are intact.? IMPRESSION:? Mildly displaced fractures can be seen involving the right inferior orbital wall, the anterior wall of the right maxillary sinus, and the lateral wall of the right maxillary sinus. ? Nasal bone fractures are also seen. ? There is associated blood seen within the right maxillary sinus. ? Right-sided periorbital soft tissue swelling can be seen. ? ? Dictated by: Jeremy Harris M.D. on 01/21/2023 at 16:35 ? ? Extremity x-ray #1: Radiologist's Impression: PROCEDURE:? XR SHOULDER LT MIN 2V ? INDICATIONS:? possible dislocation ? TECHNIQUE:? 2 views of the shoulder were acquired.? ? COMPARISON:? [facility], CR, XR SHOULDER RT MIN 2V, 07/08/2022, 20:51. ? FINDINGS:? ? Bones:? Anterior, inferior dislocation of the left humeral head relative to the glenoid.? Degenerative changes of the acromioclavicular joint.? No definite shoulder fracture identified. ? Soft tissues:? No suspicious soft tissue calcifications.? ? IMPRESSION:? Anterior, inferior dislocation of the left humeral head.? No definite fracture seen. ? ? Dictated by: John Dubois M.D. on 01/21/2023 at 17:54 ? ? Extremity x-ray #2: Radiologist's Impression: PROCEDURE:? XR SHOULDER LT 1V ? INDICATIONS:? POST REDUCTION ? TECHNIQUE:? Single view of the shoulder were acquired.? ? COMPARISON:? [facility], CR, XR SHOULDER LT MIN 2V, 03/05/2022, 14:14.? [facility], CR, XR SHOULDER LT MIN 2V, 01/21/2023, 16:50. ? FINDINGS:? ? Bones:? There is interval reduction of the previously dislocated left glenohumeral joint. ?Flattening of the superolateral humeral head is redemonstrated consistent with a Hill-Sachs impaction fracture. ? Soft tissues:? No suspicious soft tissue calcifications.? ? IMPRESSION:? ? 1. Interval reduction of the previously dislocated left glenohumeral joint. ? 2. Hill-Sachs lesion of the humeral head redemonstrated.? ? ? Dictated by: Shakir Malik M.D. on 01/22/2023 at 0:05 ? ? Approved by: Shakir Malik M.D. on 01/22/2023 at 0:06 ? Chest x-ray: Radiologist's Impression: PROCEDURE:? XR CHEST 1V ? INDICATIONS:? fall ? TECHNIQUE:? One view of the chest was acquired.? ? COMPARISON:? [facility], , XR CHEST 1V, 12/26/2021, 12:39. ? FINDINGS:? ? Surgical changes and devices:? None.? ? Lungs and pleura:? Low lung volumes.? Diffuse interstitial prominence.? Small bilateral pleural effusions larger on the left. ? Mediastinum:? Mediastinal contours appear normal.? Heart size is normal.? ? Bones and chest wall:? No suspicious bony lesions.? Overlying soft tissues appear unremarkable.? Possible anterior, inferior dislocation of the left humeral head.? No definite fracture.? No definite rib fractures identified. ? IMPRESSION:? Diffuse interstitial prominence and streaky bibasilar opacities likely related to low lung volumes. ? Small bilateral pleural effusions larger on the left. ? Suggestion of possible anterior, inferior dislocation of the left shoulder.? Consider dedicated left shoulder series for further evaluation. ? ? Dictated by: John Dubois M.D. on 01/21/2023 at 19:49 ? ? ECG Data Interpretation: Sinus rhythm rate 66 MI interval 110 QRS 70 8q DC [address] changes T-wave inversion noted in V2 new from previous EKG in 2021 no Q-waves MDM Narrative Medical decision making narrative: Patient 72-year-old male history of Parkinson's has actually had 2 falls in last 3 days. He fell and was seen at [facility] states that they did blood work scans and was released home. He fell again yesterday. He is orbital blowout fracture on right he had a dislocated left shoulder which was reduced with procedure sedation. His mental status has not quite been normal. He really has not been able to answer question he moans to pain. No evidence of infection blood work is overall reassuring no evidence of a UTI. Scans do not show any other fracture or abnormality. Patient did have a 3 second run of V tach. He was not shaking he was resting in the bed. I discussed case with who reports that she does not want any aggressive treatment for cardiac problems including defibrillator. I did discuss case with Dr. Cervantes, she reports may go ahead and start on amiodarone 400 mg twice a day for 1 week and then 200 mg twice a day for 1 week. No need for admission or amiodarone drip Patient's mental status is really not back at baseline. Not able to walk or ambulate as he was previously. He is now had around a V-tach. This time reasonable to admit for cardiac monitoring. Patient decreased mental status upon my initial evaluation prior to any opiate medication given. Orbital wall fracture supportive care only. Follow-up with ENT outpatient Discharge Plan Departure Patient Disposition: Admitted as Observation Clinical Impression: Closed fracture of orbital wall, Anterior dislocation of left shoulder, Metabolic encephalopathy, Ventricular tachycardia Admit Date/Time: 01/21/23 23:46 Admit Provider: Juan Cherry
--- NOTE | 2023-01-21 18:06 | DI.RAD.S_ITS ---
PROCEDURE: XR CHEST 1V INDICATIONS: fall TECHNIQUE: One view of the chest was acquired. COMPARISON: [facility], CR, XR CHEST 1V, 12/26/2021, 12:39. FINDINGS: Surgical changes and devices: None. Lungs and pleura: Low lung volumes. Diffuse interstitial prominence. Small bilateral pleural effusions larger on the left. Mediastinum: Mediastinal contours appear normal. Heart size is normal. Bones and chest wall: No suspicious bony lesions. Overlying soft tissues appear unremarkable. Possible anterior, inferior dislocation of the left humeral head. No definite fracture. No definite rib fractures identified. IMPRESSION: Diffuse interstitial prominence and streaky bibasilar opacities likely related to low lung volumes. Small bilateral pleural effusions larger on the left. Suggestion of possible anterior, inferior dislocation of the left shoulder. Consider dedicated left shoulder series for further evaluation. Dictated by: John Dubois M.D. on 01/21/2023 at 19:49 Approved by: John Dubois M.D. on 01/21/2023 at 19:51
[2023-01-21 18:07] LABS: Add Manual Diff / Slide Review NO; Basophils Absolute Auto 0 /uL (0-100); Basophils Percent Auto 0.3 % (0-2); Eosinophils Absolute Auto 0 /uL (0-450); Eosinophils Percent Auto 0.3 % (2-4); Hemoglobin 15.2 g/dL (13.5-17.5); Lymphocytes Absolute Auto 400 /uL (1100-4500); Lymphocytes Percent Auto 4.4 % (25-40); Mean Corpuscular HGB Conc 34.5 % (30-36); Mean Corpuscular Hemoglobin 30.8 PG (26-34); Mean Corpuscular Volume 89.2 fL (80-100); Monocytes Absolute Auto 700 /uL (0-900); Monocytes Percent Auto 7.8 % (3-14); Neutrophils Absolute Auto 7400 /uL (1500-7000); Neutrophils Percent Auto 87.2 % (50-75); Platelet Count 249 X10^3/uL (150-400); Red Blood Cell Count 4.93 X10^6/uL (4.5-5.9); Red Cell Distribution Width 13.7 % (11.6-14.8); White Blood Cell Count 8.5 X10^3/uL (4.5-11.0)
[2023-01-21] MEDS: SODIUM CHLORIDE 0.9% 1,000 ML 1000 ML IV ×2 (18:15→19:37)
[2023-01-21 18:20] LABS: Alanine Aminotransferase 10 IU/L (<50); Albumin 4.2 g/dL (3.5-5.0); Albumin Globulin Ratio 1.4 (1.0-2.8); Alkaline Phosphatase 98 U/L (38-126); Aspartate Aminotransferase 32 IU/L (17-59); BUN Creatinine Ratio 31.7 (6-22); Bilirubin Total 1.4 mg/dL (0.2-1.3); Blood Urea Nitrogen 26 mg/dL (9-20); Carbon Dioxide 24 mmol/L (22-32); Chloride 100 mmol/L (98-107); Creatine Kinase 452 U/L (55-170); Estimated Glomerular Filt Rate > 60 mL/min (>60); Globulin 3.1 g/dL (1.7-4.1); Glucose 130 mg/dL (80-110); HEMOLYSIS < 15 (0-50); Lipase 72 U/L (23-300); Potassium 4.5 mmol/L (3.4-5.1); Sodium 134 mmol/L (137-145); Total Protein 7.3 g/dL (6.3-8.2)
[2023-01-21 18:32] LABS: Troponin I 0.015 ng/mL (0.01-0.034)
[2023-01-21 19:17] LABS: Procalcitonin 0.39 ng/mL (<0.5)
[2023-01-21] MEDS: HYDROMORPHONE 0.5 MG INJ IV ×2 (19:37→21:00)
[2023-01-21] MEDS: propofoL 200 MG/20 ML VIAL 50 MG IV (21:56)
--- NOTE | 2023-01-21 22:23 | DI.RAD.S_ITS ---
PROCEDURE: XR SHOULDER LT 1V INDICATIONS: POST REDUCTION TECHNIQUE: Single view of the shoulder were acquired. COMPARISON: [facility], CR, XR SHOULDER LT MIN 2V, 03/05/2022, 14:14. [facility], CR, XR SHOULDER LT MIN 2V, 01/21/2023, 16:50. FINDINGS: Bones: There is interval reduction of the previously dislocated left glenohumeral joint. Flattening of the superolateral humeral head is redemonstrated consistent with a Hill-Sachs impaction fracture. Soft tissues: No suspicious soft tissue calcifications. IMPRESSION: 1. Interval reduction of the previously dislocated left glenohumeral joint. 2. Hill-Sachs lesion of the humeral head redemonstrated. Dictated by: Shakir Malik M.D. on 01/22/2023 at 0:05 Approved by: Shakir Malik M.D. on 01/22/2023 at 0:06
[2023-01-21 22:40] LABS: Appearance Urine UA CLEAR; Bilirubin Urine UA NEGATIVE (NEGATIVE); Color Urine UA YELLOW; Glucose Urine UA NEGATIVE (Negative); Ketones Urine UA TRACE (NEGATIVE); Leukocyte Esterase Urine UA NEGATIVE (NEGATIVE); Nitrite Urine UA NEGATIVE (Negative); Occult Blood Urine UA TRACE-INTACT (Negative); Protein Urine UA NEGATIVE (Negative); Specific Gravity Urine UA 1.025 (1.000-1.035); Urobilinogen Urine UA 0.2 E.U./dL (0.2); pH Urine UA 5.5 (4.5-8.0)
[2023-01-21 22:50] LABS: Bacteria Urine Occasional (0-1); RBC Urine 1-5/HPF (0-5/HPF); WBC Urine None Seen (0-5/HPF)
[2023-01-21 22:51] LABS: Mucus Urine 1+ (Negative); Squamous Epithelial Cell Urine 1-5 /HPF (0-5/HPF)
[2023-01-21 22:53] LABS: Culture Indicated Urine Cult Not Indicated; Hyaline Casts Urine 0-1/LPF
[2023-01-22] VITALS (11 sets, daily range): BP systolic 106–163; BP diastolic 59–98; PULSE 55–89; RESP 10–22; TEMP 36.5–37.1; O2SAT 95–98; BMI 27.0
[2023-01-22] MEDS: AMIODARONE 200 MG TABLET 400 MG PO ×3 (03:42→21:06)
--- NOTE | 2023-01-22 04:13 | PM.HP.1 ---
History of Present Illness History of Present Illness Chief complaint: Fall T-1, Slow Since Fall Narrative: Patient 72-year-old male history of Parkinson's presents today after a ground level fall yesterday.? reports that he runs because feels better he was running when he fell forward and landed his face.? He has right eye contusion complaining of left shoulder pain.? She reports no he has chronic shoulder problems and rotator cuff problems.? He is actually been here and evaluated before with both shoulders dislocated.? Really complaining of only left shoulder pain.? also reports that since the fall yesterday he has been more confused today.? He wears depends she reports that he woke up dry today he is not had very much to eat or drink.? No fever.? He is complaining some right eye pain as well. The patient had few seconds of V. tach in the ER and cardiology was consulted. Recommend it is starting the patient on amiodarone by mouth and admitted for further management. [facility] Medical History H/O recurrent urinary tract infection History of urinary incontinence (~2020) Parkinson disease (~2013) Vision disorder Surgical History Anesthesia No pertinent past surgical history Status post left rotator cuff repair Family History Father Alzheimer's disease Mother Cancer Brother Cancer Sister Hypertension Mental health problem Social History household members: spouse Smoking Status: Never smoker alcohol intake: never Meds Home Medications and Allergies Home Medications Medication Instructions Recorded Confirmed Type carbidopa 25 mg-levodopa 100 mg 1.5 tab PO QID 12/26/21 01/22/23 History tablet hydrocodone 5 mg-acetaminophen 325 1 tab PO Q6H PRN pain #10 tabs 03/05/22 Rx mg tablet clonazepam 0.5 mg tablet 0.5 mg PO BEDTIME PRN insomnia #30 03/31/22 Rx tabs carbidopa ER 50 mg-levodopa 200 mg 1 tab PO ONCE PM 01/22/23 01/22/23 History tablet,extended release Allergies Allergy/AdvReac Type Severity Reaction Status Date / Time No Known Drug Allergies Allergy Verified 12/26/21 12:20 Review of Systems Constitutional Constitutional: Reports as per HPI and Reports system reviewed and no additional complaints, except as documented Eyes Eyes: Reports as per HPI and Reports system reviewed and no additional complaints, except as documented ENT Ears, Nose, Mouth, and Throat: Yes as per HPI, Yes system reviewed and no additional complaints, except as documented, No dysphagia and No odynophagia Cardiovascular Cardiovascular: Reports system reviewed and no additional complaints, except as documented Respiratory Respiratory: Reports system reviewed and no additional complaints, except as documented Gastrointestinal Gastrointestinal: Denies as per HPI, Reports system reviewed and no additional complaints, except as documented, Denies abdominal pain, Denies belching, Denies melena, Denies bloating, Denies hematochezia, Denies change in bowel habits, Denies tenesmus, Denies change in stool character, Denies coffee ground emesis, Denies constipation, Denies cramping, Denies dysphagia, Denies excessive flatus, Denies heartburn, Denies loose stools, Denies nausea, Denies odynophagia, Denies vomiting, Denies hematemesis and Reports other Musculoskeletal Musculoskeletal: Reports arthralgias and Reports limited range of motion Neurologic Neurologic: Denies confusion Psychiatric Psychiatric: Denies as per HPI, Reports system reviewed and no additional complaints, except as documented, Denies abnormal sleep pattern, Denies anxiety, Denies change in appetite, Denies confusion, Denies depression and Denies auditory hallucinations Exam Vital Signs (past 8 hours): - 01/21/23 20:15 01/21/23 20:15 01/21/23 20:30 Temperature Pulse Rate 58 L Respiratory Rate 13 Blood Pressure 144/75 H 145/78 H Pulse Oximetry 94 Oxygen Delivery Method Oxygen Flow Rate 01/21/23 20:30 01/21/23 20:46 01/21/23 20:46 Temperature Pulse Rate 60 74 Respiratory Rate 16 Blood Pressure 165/86 H Pulse Oximetry 95 95 Oxygen Delivery Method Room Air Room Air Oxygen Flow Rate 01/21/23 20:50 01/21/23 20:55 01/21/23 21:00 Temperature Pulse Rate 75 67 Respiratory Rate 17 14 Blood Pressure 149/79 H Pulse Oximetry 95 95 Oxygen Delivery Method Room Air Oxygen Flow Rate 01/21/23 21:00 01/21/23 21:05 01/21/23 21:10 Temperature Pulse Rate 66 72 67 Respiratory Rate 14 17 14 Blood Pressure Pulse Oximetry 94 94 94 Oxygen Delivery Method Room Air Room Air Oxygen Flow Rate 01/21/23 21:15 01/21/23 21:16 01/21/23 21:16 Temperature Pulse Rate 62 64 Respiratory Rate 12 13 Blood Pressure 142/83 H Pulse Oximetry 93 94 Oxygen Delivery Method Room Air Room Air Oxygen Flow Rate 01/21/23 21:20 01/21/23 21:25 01/21/23 21:30 Temperature Pulse Rate 63 63 Respiratory Rate 13 12 Blood Pressure 155/84 H Pulse Oximetry 94 94 Oxygen Delivery Method Room Air Oxygen Flow Rate 01/21/23 21:30 01/21/23 21:35 01/21/23 21:40 Temperature Pulse Rate 62 60 61 Respiratory Rate 12 12 14 Blood Pressure Pulse Oximetry 94 94 94 Oxygen Delivery Method Room Air Room Air Oxygen Flow Rate 01/21/23 21:41 01/21/23 21:41 01/21/23 21:45 Temperature Pulse Rate 60 Respiratory Rate 12 Blood Pressure 148/70 H 144/77 H Pulse Oximetry 94 Oxygen Delivery Method Oxygen Flow Rate 01/21/23 21:45 01/21/23 21:50 01/21/23 21:50 Temperature Pulse Rate 62 61 Respiratory Rate 12 12 Blood Pressure 139/73 Pulse Oximetry 94 94 Oxygen Delivery Method Room Air Room Air Oxygen Flow Rate 01/21/23 21:55 01/21/23 21:55 01/21/23 22:00 Temperature Pulse Rate 61 Respiratory Rate 13 Blood Pressure 134/76 145/84 H Pulse Oximetry 94 Oxygen Delivery Method Room Air Oxygen Flow Rate 01/21/23 22:00 01/21/23 22:05 01/21/23 22:05 Temperature Pulse Rate 58 L 56 L Respiratory Rate 12 10 L Blood Pressure 130/70 Pulse Oximetry 96 97 Oxygen Delivery Method Nasal Cannula Nasal Cannula Oxygen Flow Rate 2 2 01/21/23 22:10 01/21/23 22:10 01/22/23 00:22 Temperature Pulse Rate 56 L 78 Respiratory Rate 9 L 18 Blood Pressure 139/72 Pulse Oximetry 98 Oxygen Delivery Method Nasal Cannula Oxygen Flow Rate 2 01/21/23 22:15 01/21/23 22:15 01/21/23 22:20 Temperature Pulse Rate 58 L 61 Respiratory Rate 18 Blood Pressure 139/74 Pulse Oximetry 97 97 Oxygen Delivery Method Room Air Room Air Oxygen Flow Rate 01/21/23 22:20 01/21/23 22:25 01/21/23 22:25 Temperature Pulse Rate 61 Respiratory Rate 11 L Blood Pressure 169/84 H 148/75 H Pulse Oximetry 97 Oxygen Delivery Method Room Air Oxygen Flow Rate 01/21/23 22:30 01/21/23 22:30 01/21/23 23:00 Temperature Pulse Rate 59 L Respiratory Rate Blood Pressure 161/79 H 146/75 H Pulse Oximetry 98 Oxygen Delivery Method Oxygen Flow Rate 01/21/23 23:00 01/21/23 23:30 01/21/23 23:30 Temperature Pulse Rate 60 60 Respiratory Rate 11 L 11 L Blood Pressure 153/80 H Pulse Oximetry 96 95 Oxygen Delivery Method Room Air Oxygen Flow Rate 01/22/23 00:00 01/22/23 00:00 01/22/23 00:30 Temperature Pulse Rate 56 L Respiratory Rate Blood Pressure 133/74 133/75 Pulse Oximetry 95 Oxygen Delivery Method Room Air Oxygen Flow Rate 01/22/23 00:30 01/22/23 01:00 01/22/23 01:00 Temperature Pulse Rate 55 L 56 L Respiratory Rate 12 10 L Blood Pressure 145/75 H Pulse Oximetry 95 95 Oxygen Delivery Method Room Air Room Air Oxygen Flow Rate 01/22/23 01:39 01/22/23 01:55 01/22/23 01:33 Temperature 98.0 F 98.0 F Pulse Rate 66 66 Respiratory Rate 20 20 Blood Pressure 156/84 H 156/84 H Pulse Oximetry 95 95 Oxygen Delivery Method Room Air Oxygen Flow Rate 0 0 01/22/23 04:00 Temperature Pulse Rate 78 Respiratory Rate Blood Pressure 163/82 H Pulse Oximetry Oxygen Delivery Method Oxygen Flow Rate Oxygen Delivery Method Room Air Oxygen Flow Rate 0 Const General: cooperative, comfortable and well developed Orientation: alert and oriented x3 HENMT Head: normal to inspection and atraumatic Face and sinus: normal facial exam Mouth: oral mucosae normal and moist mucous membranes Throat: posterior oropharynx normal Eyes General: appearance normal, both eyes and all related structures Pupils: PERRL EOM: EOM intact bilaterally Neck Neck: normal visual inspection and full ROM Chest Chest: normal inspection of the chest Resp Effort & Inspection: normal respiratory effort and able to speak in complete sentences Auscultation: clear to auscultation bilaterally Cardio Palpation: normal PMI Rate: regular rate Rhythm: regular rhythm Heart Sounds: S1 normal and S2 normal GI Inspection: normal to inspection Palpation: soft and no hepatosplenomegaly Auscultation: normal bowel sounds Skin General: no rashes or lesions noted Neuro General: patient alert, patient awake, patient oriented x3 and no focal motor deficits Cognition: normal cognition Motor: muscle tone normal throughout Sensory Exam: no sensory deficits noted Extrem General: full ROM and no calf tenderness Psych Appearance: grossly normal Mental Status: mental status grossly normal Speech and Movement: speech and movement normal Objective Labs 01/21/23 17:58 01/21/23 17:58 Labs: Laboratory Results - last 24 hr 01/21/23 01/21/23 01/21/23 17:58 17:58 22:08 WBC 8.5 RBC 4.93 Hgb 15.2 Hct 44.0 MCV 89.2 MCH 30.8 MCHC 34.5 RDW 13.7 Plt Count 249 Neut % (Auto) 87.2 H Lymph % (Auto) 4.4 L [place] % (Auto) 7.8 Eos % (Auto) 0.3 L Baso % (Auto) 0.3 Neut # (Auto) 7400 H Lymph # (Auto) 400 L [place] # (Auto) 700 Eos # (Auto) 0 Baso # (Auto) 0 Sodium 134 L Potassium 4.5 Chloride 100 Carbon Dioxide 24 BUN 26 H Creatinine 0.82 Estimated GFR > 60 BUN/Creatinine Ratio 31.7 H Glucose 130 H Calcium 9.0 Total Bilirubin 1.4 H AST 32 ALT 10 Alkaline Phosphatase 98 Total Creatine Kinase 452 H Troponin I 0.015 Total Protein 7.3 Albumin 4.2 Globulin 3.1 Albumin/Globulin Ratio 1.4 Lipase 72 Procalcitonin 0.39 Urine Color Yellow Urine Appearance Clear Urine pH 5.5 Ur Specific [place] 1.025 Urine Protein Negative Urine Glucose (UA) Negative Urine Ketones Trace H Urine Occult Blood Trace-intact Urine Nitrate Negative Urine Bilirubin Negative Urine Urobilinogen 0.2 Ur Leukocyte Esterase Negative Urine RBC 1-5/hpf Urine WBC None seen Ur Squamous Epith Cells 1-5 /hpf Urine Bacteria Occasional (0-1) Hyaline Casts 0-1/lpf Urine Mucus 1+ H Ur Culture Indicated? Cult not indicated Assessment & Plan Assessment and plan (1) Anterior dislocation of left shoulder: Problem details: repositioned in the ER Status: Acute Plan: -Pain medications when necessary -Orthopedic surgery as outpatient (2) Metabolic encephalopathy: Problem details: most likely due to Dilaudid and Ativan given in the ED Status: Acute Plan: -spare using of narcotics -Narcan when necessary (3) Ventricular tachycardia: Problem details: few seconds of V. tach noted in the ED. Cardiology was consulted over the phone Status: Acute Plan: -start amiodarone 400 mg twice a day -Telemetry, -CMP daily (4) History of urinary incontinence: Status: Acute Plan: -monitor for now (5) Parkinson disease: Status: Acute Plan: -restart carbidopa -fall precaution Time Spent With Patient Time with patient: 50 to 69 minutes with 50% spent counseling/coordinating care Quality VTE Deep Vein Thrombosis/Pulmonary Embolism Present on Admission: No MIPS - Admit I confirm the patient?s Advance Care Plan is present, Code status is documented, Surrogate decision maker is in patient?s record [If Yes, STOP here]: Yes MIPS - Meds 'Current medications' to include all prescriptions, [id number] products, herbals, cannabis/cannabidiol products, and vitamin/mineral/dietary (nutritional) supplements. I have utilized all available resources to obtain, update, or review the patient?s current medications. [If Yes, STOP here]: Yes
--- NOTE | 2023-01-22 06:18 | PC.NURSE ---
Patient somnolent upon arrival to floor at 0120, responding only to simple verbal commands, not able to follow all commands or open eyes. Pt oriented to self, birthday, and location only. Through remainder of shift, pt became more alert and conversant, remaining When alone in room, pt becomes restless and impulsive, attempting to get out of bed, and removing tele stickers and IV catheter. New IV placed. Pt easily redirected, and compliant, but quite forgetful.
[2023-01-22] MEDS: CARBIDOPA-LEVODOPA 25/100 TABLET 1.5 EACH PO ×4 (06:41→15:47)
[2023-01-22 06:44] LABS: Alanine Aminotransferase 10 IU/L (<50); Albumin 3.6 g/dL (3.5-5.0); Albumin Globulin Ratio 1.2 (1.0-2.8); Alkaline Phosphatase 86 U/L (38-126); Aspartate Aminotransferase 32 IU/L (17-59); BUN Creatinine Ratio 28.8 (6-22); Bilirubin Total 1.3 mg/dL (0.2-1.3); Blood Urea Nitrogen 19 mg/dL (9-20); Calcium 8.6 mg/dL (8.4-10.2); Carbon Dioxide 27 mmol/L (22-32); Chloride 103 mmol/L (98-107); Estimated Glomerular Filt Rate > 60 mL/min (>60); Glucose 101 mg/dL (80-110); HEMOLYSIS < 15 (0-50); Magnesium 1.9 mg/dL (1.6-2.3); Potassium 3.6 mmol/L (3.4-5.1); Sodium 135 mmol/L (137-145); Total Protein 6.6 g/dL (6.3-8.2)
[2023-01-22] MEDS: DOCUSATE 100 MG CAPSULE PO ×2 (09:05→21:06)
--- NOTE | 2023-01-22 09:05 | PC.NURSE ---
Day shift: Pt removing tele leads this AM. Reminded to leave them in place but still removes. Dr Diamond aware.
[2023-01-22] MEDS: ENOXAPARIN 40 MG/0.4 ML SYRINGE SUBCUT (12:45)
--- NOTE | 2023-01-22 12:46 | PT.IIE ---
Current Diagnoses Parkinson's disease (01/21/23) Metabolic encephalopathy (01/21/23) Ventricular tachycardia, unspecified (01/21/23) Anterior dislocation of left humerus, initial encounter (01/21/23) Personal history of other specified conditions (01/21/23) Surgical History (Last Reviewed 01/21/23 @ 18:19 by Jeni Wynne DO) Anesthesia No pertinent past surgical history Status post left rotator cuff repair Medical History (Last Reviewed 01/21/23 @ 18:19 by Jeni Wynne DO) H/O recurrent urinary tract infection History of urinary incontinence (~2020) Parkinson disease (~2013) Vision disorder Physical Therapy Inpatient Evaluation/Re-Eval M1 PT/OT-IP Prior Functional Status Start: 01/22/23 10:27 Freq: NEEDED Status: Active Protocol: Document 01/22/23 11:30 MB (Rec: 01/22/23 12:46 MB [id number]) Medical Review Prior Functional Status Medical History Reviewed Yes Communication Unsure of baseline diet. Pt with low vocal tone at baseline d/t PD. and pt state that pt has history of oral disease. Mobility and Gait , who is pt's caregiver and a retired nurse, assists pt with all tasks. He requires heavier assist to get OOB in the morning (dependent), uses a walker to get to the BR and then gradually does not use the walker later in the day. Pt cannot keep his balance with walking and does a type of jog in front of when she walks the dog. He has fallen twice in the same week doing this. Activities of Daily Living and IADL's Pt assists with bathing. Pt has a walk-in shower and shower chair. She assists with dressing and he occ helps dress himself. Social History Household Members spouse Living Arrangements House Number of Floors (Floors) One Floor Number of Stairs To Enter/Railing? Ramped entrance Home Environment Standard Height Toilet,Built- In Shower Seat,Ramp Home Equipment Front Wheel Walker,Grab Bars Near Toilet,Grab Bars In Shower Employment Status Retired M2 PT-IP Current Condition Start: 01/22/23 10:27 Freq: NEEDED Status: Active Protocol: Document 01/22/23 11:30 MB (Rec: 01/22/23 12:46 MB [id number]) Physical Therapy Current Condition Current Condition Evaluation Date 01/22/23 Treatment Diagnosis Fall with right orbital and nasal fractures, left shoulder dislocation, PD Onset Date 01/21/23 and another fall earlier in the week M3 PT-IP Subjective Start: 01/22/23 10:27 Freq: NEEDED Status: Active Protocol: Document 01/22/23 11:30 MB (Rec: 01/22/23 12:46 MB [id number]) Subjective Physical Therapy Visit Type Type Initial Evaluation Visit Start Time 11:30 Visit Stop Time 12:15 Total Visit Minutes 45 Number of RETURNED CASE INSPECTOR Visits 0 Physical Therapy Visit Comments Patient Comments Pt is hypoverbal and has low vocal tones. He presents with confusion and does not make appropriate responses to questions. , who is caregiver, answers all PLOF questions. She is a retired nurse. Patient Goals states that pt will not want to go to SNF. She is open to it but she is concerned that he will not do well there . Therapy Pain Assessment Pain When Pain Assessed At Rest Pain Present Pain Present Pain Reported Location Left Shoulder Intensity 2 Scale Used [place] (Faces) Pain Management Techniques Distraction,Re-positioning M4 PT-IP Mobility and Gait Start: 01/22/23 10:27 Freq: NEEDED Status: Active Protocol: Document 01/22/23 11:30 MB (Rec: 01/22/23 12:46 MB [id number]) PT-Bed Mobility Assessment Supine to Sit Supine to Sit Total Assistance,1 Person Assistance,Head of Bed Elevated Scooting Scooting to Edge of Bed Dependent PT-Transfer Assessment Sit to and From Stand Sit to and from Stand Maximum Assistance Equipment Transfer Assistive Device Gait Belt,Front Wheeled Walker Transfers Transfer Destination Chair Transfer Technique Stand Step Pivot Transfer Ability Level of Assist Total Assistance,1 Person Assistance,Use of Upper Extremities Comments Mobility Comments Pt has very rigid movement of all extremities and little command following and spontaneous movement. PT cannot assess ROM or strength well. He requires dependent assist from PT to get up to walker and to chair with use of RW. He has strong posterior lean and toe-toe gait, worse on the right foot. Gait Assessment Gait Gait Assistance Required: Total Assistance,1 Person Assist Distance (Feet) 1 Able to Maintain Weight Bearing Status Yes During Gait Assistive Devices Assistive Device Gait Belt,Front Wheeled Walker Orthotic/Prosthetic Devices or Brace: No Gait Deviations General Gait Pattern Ataxic,Decreased Stride Length ,Decreased Feet Clearance, Festinating,Flexed Trunk, Narrow Based Gait,Step-to Gait Factors Limiting Gait Function Factors Limiting Gait Function Abnormal Tonal Influences, Decreased Activity Tolerance, Decreased Strength,Difficulty Following Directions,Pain,Poor Balance,Poor Safety Awareness Comments Gait Comments See bed to chair transfer comments: very narrow CHASTITY and toe-toe gait with little foot clearance and step-length, strong posterior lean and requiring assist to remain upright and to move walker. PT-Balance Assessment Sitting Balance and Reactions Static Sitting Balance Ability Poor Dynamic Sitting Balance Ability Poor Standing Balance and Reactions Static Standing Balance Ability Poor Dynamic Standing Balance Ability Poor Device Used RW Comments Other Balance Tests/Deviations/Treatment PT must hold pt in sitting : position EOB for first minute and then he requires close superv and UE support after PT pulls him to the EOB with pad M5 PT-IP Objective Assessments Start: 01/22/23 10:27 Freq: NEEDED Status: Active Protocol: Document 01/22/23 11:30 MB (Rec: 01/22/23 12:46 MB [id number]) Orientation Orientation/Cognition Level of Alertness Lethargic Orientation Name,Age Safety Awareness Decreased Safety Awareness Memory Description Short Term Impaired,Splicing 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 Tremors LEs with sitting and very limited range and strength all extremites. He cannot tolerate range or MMT. Coordination Assessment Gross Coordination Gross Coordination Impaired Muscle Tone Muscle Tone WNL No Comments Muscle Tone Comments Increased tone B PFs M7 PT-IP Assessment and Plan Start: 01/22/23 10:27 Freq: NEEDED Status: Active Protocol: Document 01/22/23 11:30 MB (Rec: 01/22/23 12:46 MB [id number]) PT Summary Assessment and Plan Potential Rehabilitation Potential Fair Status of Condition at Evaluation Evolving Summary Impairments Pain,ROM,Strength,Balance, Coordination,Tone,Cognition, Bed Mobility,Transfers,Gait, Activity Tolerance Progress Towards Goals Slow Progress due to Pain,Slow Progress due to Medical Issues,Slow Progress due to Activity Tolerance Assessment Summary Pt is a 72 y/o male presenting with profound mobility, range , and strength deficits s/p two falls this week from jogging in front of . She states that he cannot keep his balance with walking and he naturally gets into a jogging type gait pattern when she goes out with him to walk the dog. is pt's primary caregiver and she is a retired nurse. She is with the pt all the time and assists with all mobility and ADLs. Her daughter and grandsons live very close and check in on pt when she leaves the house. They have had HH in the past and are interested in this. She states she is open to SNF but is concerned about pt being in a new environment and how he will respond. Pt has right facial swelling, right eye swelling and ecchymosis in setting of orbital and nasal fractures. He knocked out his front tooth in another fall. He has never had any movement or speech therapy for Parkinson's despite having profound deficits as observed today and as described by . PT is concerned about this lack of therapies for movement and speech given that he has had PD at least 10 years per ' s report and that she was allowing him to jog in front of her despite more than one fall outside over this past week. Pt has pt's left shoulder sling from previous injuries and surgeries and PT and and pt opted to keep off for transfer with PT with walker and PT places pillow under his left arm in the chair to prepare for lunch. Pt requires dependent assistance for bed mobility with PT and is pretty much dependent with transfer with walker bed to chair. PT ed pt and that this is not manageable for at this time. PT will recommend SNF level of care for d/c and and pt can decide if they are willing to have this as d/c plan or not. Goals Bed Mobility Goal Maximal Assistance Transfer Goal Minimal Assistance,Front Wheeled Walker Gait Goal Minimal Assistance,Front Wheel Walker Gait Distance 15 Other Goals states that pt typically requires max A for bed mobility at home Frequency of Treatment Frequency Of Treatment Once a Day Treatment Plan Physical Therapy Treatment Plan Bed Mobility Training,Transfer Training,Gait Training, Therapeutic Exercise,Balance Retraining,Discharge Planning, Hot or Cold Pack,Neuromuscular Re-ed,Coordination Retraining Precautions Shoulder Precautions Sling Other Precautions Sling left shoulder as needed Recommendations To Nursing Amount of Assist Needed Mechanical Lift Discharge Recommendations PT Discharge Recommendations SNF Rehab Transportation Needs at Discharge Wheelchair/Cabulance
--- NOTE | 2023-01-22 14:04 | PC.NURSE ---
Day shift: Dr Diamond informed Pt has been removing his IV. OK for no IV access at this time per Dr Diamond.
--- NOTE | 2023-01-22 14:18 | CM.DANOTE ---
Initial DCP Assessment Note Pt is a 72 yo male, resident of [place], presents after a forward fall while running with his . Patient w/Parkinsons. Now with bruising, fx in his right eye and a dislocated shoulder that was relocated in the ER PCP: Deni Fernandez: GUIDO/Marycarmen Reviewed chart, pt discussed in multidisciplinary rounds this morning, patient may benefit from SNF at discharge Met w/patient and spouse this afternoon to introduce self and role. Patient resting and did not participate this visit Spouse explains their home is well equipped w/ DME for patient. Patient is never alone per spouse and needs some level of assist w/all ADLs r/t his Parkinsons. Patient sleeps in his lift recliner, does not use an AD typically Patient/spouse's adult dtr lives near w/her and children and they are available to assist as needed Patient and spouse go for a daily walk and patient, at times, picks up speed which is when his forward falls have happened. Spouse further explains that any injury, infection and pain severely exacerbates the sx of Parkinsons which they often see as generalized weakness and inability to ambulate independently Spouse hopeful patient can return home and asks that this AUTOMOTIVE PARTS ADVISOR check in tomorrow after patient has additional time with PT/OT CM team following closely, will plan to chk in with patient and spouse tomorrow to review DCP; home w/HH vs SNF. Discussed [facility] SNF benefit w/spouse today LEANNE Baez Discharge Planning/Care Management Advanced directive, confirm from FAMILY Start: 01/22/23 02:45 Freq: Q24H Status: Active Protocol: Document 01/22/23 02:45 CT (Rec: 01/22/23 02:56 CT [id number]) Advance Directive, confirm on record Time 00:00 Person contacted [place] Copy received No CM Discharge Assessment Start: 01/22/23 14:03 Freq: Status: Active Protocol: Document 01/22/23 14:03 AYLA (Rec: 01/22/23 14:17 AYLA [id number]) Discharge Planning Assessment Assigned Grants Manager LEANNE Castillo DPOA/Assigned Designee Name Melita Tyler, spouse Contact Information [phone] Advance Directives? Yes Advance Directives on File No History Provided By Family Member,Medical Record Prior Living Arrangements House Household Members spouse Type of transporation used prior to Relies on Others admit Independent with ADL's No Is patient alert and oriented? Yes Needs Assistance With Bathing,Grooming,Meal Prep, Toileting,Managing Medications ,Home Chores / Shopping Comment Patient requires some level of assist w/most ADLs, spouse says patient is never alone. injuries and pain make Parkinsons sx worse Patient/Family Preference Home with Home Health Comment Patient may require SNF upon discharge, spouse hopeful he can return home w/she and her adult children Barriers to Discharge Yes Comment Bruising, eye fx and sx of Parkinsons currently exacerbated per spouse, namely generalized weakness and poor balance = SNF may be a safer option than home
--- NOTE | 2023-01-22 16:05 | PM.PN.1 ---
Subjective Subjective Interval history: Pt is 72 yo male with Parkinson's admitted s/p GLF resulting in right orbital fx and dislocated lt shoulder reduced in ED. Also noted to have 3 sec run vtach in ED and started on Amio after cardiology phone consult. Pt has been a little confused, pulled out IV and removing tele. Hasn't had further vtach episodes. Up to chair with PT but required 2p assist to mobilize back to bed. Exam Vital Signs (past 8 hours): - 01/22/23 11:00 01/22/23 15:53 Temperature 98.3 F 98.2 F Pulse Rate 67 77 Respiratory Rate 20 16 Blood Pressure 160/85 H 106/59 L Pulse Oximetry 98 97 Oxygen Flow Rate 0 0 Oxygen Delivery Method Room Air Oxygen Flow Rate 0 Narrative Exam Narrative: gen: alert, difficulty following commands HEENT: left eye contusion and difficulty opening the eye Lungs: clear CV: regular Abd: soft, nt Ext: no edema, lt shoulder reduced N: confused Objective Labs 01/21/23 17:58 01/22/23 06:21 Labs: Laboratory Results - last 24 hr 01/21/23 01/21/23 01/21/23 17:58 17:58 22:08 WBC 8.5 RBC 4.93 Hgb 15.2 Hct 44.0 MCV 89.2 MCH 30.8 MCHC 34.5 RDW 13.7 Plt Count 249 Neut % (Auto) 87.2 H Lymph % (Auto) 4.4 L [place] % (Auto) 7.8 Eos % (Auto) 0.3 L Baso % (Auto) 0.3 Neut # (Auto) 7400 H Lymph # (Auto) 400 L [place] # (Auto) 700 Eos # (Auto) 0 Baso # (Auto) 0 Sodium 134 L Potassium 4.5 Chloride 100 Carbon Dioxide 24 BUN 26 H Creatinine 0.82 Estimated GFR > 60 BUN/Creatinine Ratio 31.7 H Glucose 130 H Calcium 9.0 Magnesium Total Bilirubin 1.4 H AST 32 ALT 10 Alkaline Phosphatase 98 Total Creatine Kinase 452 H Troponin I 0.015 Total Protein 7.3 Albumin 4.2 Globulin 3.1 Albumin/Globulin Ratio 1.4 Lipase 72 Procalcitonin 0.39 Urine Color Yellow Urine Appearance Clear Urine pH 5.5 Ur Specific [place] 1.025 Urine Protein Negative Urine Glucose (UA) Negative Urine Ketones Trace H Urine Occult Blood Trace-intact Urine Nitrate Negative Urine Bilirubin Negative Urine Urobilinogen 0.2 Ur Leukocyte Esterase Negative Urine RBC 1-5/hpf Urine WBC None seen Ur Squamous Epith Cells 1-5 /hpf Urine Bacteria Occasional (0-1) Hyaline Casts 0-1/lpf Urine Mucus 1+ H Ur Culture Indicated? Cult not indicated 01/22/23 06:21 WBC RBC Hgb Hct MCV MCH MCHC RDW Plt Count Neut % (Auto) Lymph % (Auto) [place] % (Auto) Eos % (Auto) Baso % (Auto) Neut # (Auto) Lymph # (Auto) [place] # (Auto) Eos # (Auto) Baso # (Auto) Sodium 135 L Potassium 3.6 Chloride 103 Carbon Dioxide 27 BUN 19 Creatinine 0.66 Estimated GFR > 60 BUN/Creatinine Ratio 28.8 H Glucose 101 Calcium 8.6 Magnesium 1.9 Total Bilirubin 1.3 AST 32 ALT 10 Alkaline Phosphatase 86 Total Creatine Kinase Troponin I Total Protein 6.6 Albumin 3.6 Globulin 3.0 Albumin/Globulin Ratio 1.2 Lipase Procalcitonin Urine Color Urine Appearance Urine pH Ur Specific [place] Urine Protein Urine Glucose (UA) Urine Ketones Urine Occult Blood Urine Nitrate Urine Bilirubin Urine Urobilinogen Ur Leukocyte Esterase Urine RBC Urine WBC Ur Squamous Epith Cells Urine Bacteria Hyaline Casts Urine Mucus Ur Culture Indicated? PFSH Medical History H/O recurrent urinary tract infection History of urinary incontinence (~2020) Parkinson disease (~2013) Vision disorder Surgical History Anesthesia No pertinent past surgical history Status post left rotator cuff repair Family History Father Alzheimer's disease Mother Cancer Brother Cancer Sister Hypertension Mental health problem Social History household members: spouse Smoking Status: Never smoker alcohol intake: never Assessment & Plan Assessment & Plan narrative: 1. GLF - head ct neg for subdural, c-spine neg acute trauma -poor stability sec to Parkinson's -PT/OT consult -likely SNF rehab 2. Rt orbital and maxillary sinus fx -cons mgmt, Tylenol prn 3. Left shoulder dislocation -reduced in ED -tylenol prn 4. V tach -3 sec v tach in ED -Mg/K nl -per cardiology, start amiodarone 400 bid x 1 week then 200 bid -tele monitoring -ECHO -outpatient cardiology f/u 5. Acute metabolic encephalopathy -avoid narcotics -Ok to leave IV out 6. patkinson's -cont Sinemet per home routine -also on clonazepam HS Surrogate: spouse code satus: full DVT prevention: lovenox Quality VTE Deep Vein Thrombosis/Pulmonary Embolism Present on Admission: No
--- NOTE | 2023-01-22 16:22 | DI.ECHO.S_ITS ---
[facility]---------+ [facility] +---------+ : : [address] : : : : [id number] : : : : Phone: [phone]+ Echocardiogram Report + + :Name: SALVADOR CR Study Date: 01/22/2023 Height: 70 in : :[facility] ReadingLocation: Weight: 183 lb : : Gender: Male BSA: 2.0 m2 : :: 1950 Age: 72 yrs BP: 156/84 mmHg: :Reason For Study: Ventricular Tachycardia : :Ordering Physician: MITCHEL, : :CARLOS Performed By: Zhane Francis : :Referring: CARLOS GRULLON : + + Interpretation Summary The ejection fraction is estimated to be 60-65%. There is mild aortic valve sclerosis. A bicuspid aortic valve cannot be excluded. There is trace tricuspid regurgitation. Procedure: A two-dimensional transthoracic echocardiogram with color flow and Doppler was performed. The study quality was technically difficult. There is no prior echocardiogram noted for this patient. The patient was in normal sinus rhythm during the exam. Left Ventricle: The left ventricle is normal in size. The ejection fraction is estimated to be 60-65%. Left ventricular wall motion is normal. Diastolic parameters suggest a relaxation abnormality of the left ventricle, consistent with probable normal filling pressures. Right Ventricle: The right ventricle is normal size. The right ventricular systolic function is normal. Atria: The left atrial size is normal. Right atrial size is normal. Mitral Valve: The mitral valve is normal. There is no mitral valve stenosis. There is trace mitral regurgitation. Aortic Valve: The aortic valve opens well. There is mild aortic valve sclerosis. A bicuspid aortic valve cannot be excluded. There is no aortic valve stenosis. There is trace aortic regurgitation. Tricuspid Valve: The tricuspid valve is normal. There is no tricuspid stenosis. There is trace tricuspid regurgitation. Pulmonary artery pressures cannot be estimated because of the lack of a measurable TR jet velocity. Pulmonic Valve: The pulmonic valve is not well visualized. There is no pulmonic valvular stenosis. There is no pulmonic valvular regurgitation. Great Vessels: The aortic root is not well visualized. The ascending aorta could not be visualized. The pulmonary artery is normal size. The IVC is of normal diameter and collapses greater than 50% with a sniff. This suggests a low right atrial pressure of 3 mm Hg. Pericardium/ Pleura There is no pericardial effusion. There is no pleural effusion. MMode/2D Measurements & Calculations LA A2 area: 18.8 cm2 RA long axis: 4.9 cm LA A4 area: 15.7 cm2 RA area: 13.7 cm2 LA length (vol): 6.0 cm RA vol: 32.6 ml LA vol: 41.7 ml RA : 16.2 ml/m2 LA vol index: 20.7 ml/m2 RVD1 (basal): 2.9 cm LVAd ap4: 25.4 cm2 LVAs ap4: 14.6 cm2 LVLs ap4: 6.7 cm LVAd ap2: 27.3 cm2 TAPSE_phl: 1.8 cm LVLd ap2: 8.4 cm LVAs ap2: 13.4 cm2 LVLs ap2: 6.7 cm Doppler Measurements & Calculations Ao V2 max: 178.0 cm/sec LVOT Max Td: 126.0 cm/sec Ao V2 mean: 111.0 cm/sec LV V1 max P.4 mmHg Ao max P.0 mmHg LV V1 VTI: 27.4 cm Ao mean P.0 mmHg sev ratio: 0.86 Ao V2 VTI: 31.7 cm MV E max td: 75.8 cm/sec AV VR_phl: 0.71 MV A max td: 99.8 cm/sec MV E/A: 0.76 Med Peak E' Td: 5.5 cm/sec E/E' med: 13.8 Lat Peak E' Td: 9.2 cm/sec E/E' lat: 8.2 E/e' average: 11.0 MV dec time: 0.37 sec MV P1/2t-pr_phl: 107.0 msec Reading Physician:07:56 PM
--- NOTE | 2023-01-22 16:43 | OT.IPNOTE ---
Pt getting an ECHo , unable to see for OT eval. Per PT eval pt dependent for transfer and will benefit from skilled rehab prior to going home. No charge.
[2023-01-22] MEDS: CARBIDOPA-LEVODOPA ER 50/200 TABLET 1 EACH PO (21:06)
--- NOTE | 2023-01-22 22:20 | PC.NURSE ---
Addendum entered by José Miguel Mares R.N. 01/22/23 22:37: Patient given klonopin 0.5mg to assist with sleep per Debras request Original Note: Patient restless, wanted to talk with ,call placed to Melita for patient.
[2023-01-22] MEDS: clonazePAM 0.5 MG TABLET PO (22:33)
[2023-01-23 04:40] VITALS: BP 170/95; PULSE 82; RESP 20; TEMP 36.4; O2SAT 98
[2023-01-23 06:39] VITALS: BP 170/91
[2023-01-23] MEDS: CARBIDOPA-LEVODOPA 25/100 TABLET 1.5 EACH PO ×4 (06:40→15:54)
--- NOTE | 2023-01-23 07:00 | PC.NURSE ---
Pt. was awake around 0400, restless but denied any pain. . notified with elevated B/P 170/95, 172/99. Ativan was ordered IV but no IV access & was not admin. Pt. been looking for his since he woke up. Called his spouse @ home & she stated I'll be there this morning. Told pt. that will be in this morning.
[2023-01-23 08:47] VITALS: BP 142/80; PULSE 60; RESP 16; TEMP 36.4; O2SAT 95
--- NOTE | 2023-01-23 09:15 | DI.MRI.S_ITS ---
PROCEDURE: MR HEAD/BRAIN WO CON INDICATIONS: impaired balance,falls,r/o subacute strokes, etc TECHNIQUE: Non-contrast axial T1 spin echo, axial T2 fast spin echo, sagittal and axial FLAIR, coronal T2 fast spin echo, axial gradient echo, axial diffusion and ADC through the brain. COMPARISON: None. FINDINGS: Image quality: Excellent. CSF spaces: Ventricles appear symmetric in size and shape. Basal cisterns are patent. No extra-axial fluid collections. Brain: No intracranial bleeds or mass effects. There is cerebral volume loss for age. There are periventricular and deep white matter chronic small vessel ischemic changes. Brainstem appears normal. Diffusion-weighted images show no acute ischemic insults. No chronic ischemic insults. Normal intravascular flow voids are present. Skull and face: Calvarial bone marrow is normal in signal. Orbits are normal. Sinuses: Sinuses and mastoids are clear. IMPRESSION: 1. No acute intracranial abnormality. 2. Cerebral volume loss and small vessel ischemic changes. Dictated by: Arsenio Sanchez M.D. on 01/23/2023 at 10:48 Approved by: Arsenio Sanchez M.D. on 01/23/2023 at 10:50
--- NOTE | 2023-01-23 09:41 | PC.NURSE ---
Day shift: Off unit for MRI at approx 0935.
[2023-01-23] MEDS: DOCUSATE 100 MG CAPSULE PO ×2 (09:49→20:11)
[2023-01-23] MEDS: ENOXAPARIN 40 MG/0.4 ML SYRINGE SUBCUT (09:49)
[2023-01-23] MEDS: AMIODARONE 200 MG TABLET 400 MG PO ×2 (09:49→20:09)
--- NOTE | 2023-01-23 10:22 | PC.NURSE ---
Day shift: Back in room at approx 1015. Tele placed and Pt's Spouse is giving him a bed bath. Call light in reach.
[2023-01-23] MEDS: ACETAMINOPHEN 325 MG TABLET 650 MG PO (11:57)
[2023-01-23 12:52] VITALS: BP 139/82; PULSE 59; RESP 17; TEMP 36.7; O2SAT 96
--- NOTE | 2023-01-23 13:05 | PM.PN.1 ---
Subjective Subjective Interval history: Pt is 72 yo male with Parkinson's admitted s/p GLF resulting in right orbital fx and dislocated lt shoulder reduced in ED. Also noted to have 3 sec run vtach in ED and started on Amio after cardiology phone consult. Pt still confused and difficulty keeping tele on for v tach monitoring. is caregiver would like to take him home tomorrow if possible. Neuro had ordered outpt brain MRI to eval inc cognitive problems which we decided to get MRI done while he's here and it is unremarkable. ECHO also shows structurally normal heart. Exam Vital Signs (past 8 hours): - 01/23/23 06:39 01/23/23 08:47 01/23/23 12:52 Temperature 97.5 F L 98.1 F Pulse Rate 60 59 L Respiratory Rate 16 17 Blood Pressure 170/91 H 142/80 H 139/82 Pulse Oximetry 95 96 Oxygen Flow Rate 0 0 Oxygen Delivery Method Room Air Oxygen Flow Rate 0 Narrative Exam Narrative: Gen: sleeping, hard to awaken this AM HEENT: rt eye contusion, conj clear Lungs: clear CV: regular Ext: no edema Objective Labs 01/21/23 17:58 01/22/23 06:21 PFSH Medical History H/O recurrent urinary tract infection History of urinary incontinence (~2020) Parkinson disease (~2013) Vision disorder Surgical History Anesthesia No pertinent past surgical history Status post left rotator cuff repair Family History Father Alzheimer's disease Mother Cancer Brother Cancer Sister Hypertension Mental health problem Social History household members: spouse Smoking Status: Never smoker alcohol intake: never Assessment & Plan Assessment & Plan narrative: 1. GLF - head ct neg for subdural, c-spine neg acute trauma -poor stability sec to Parkinson's -PT/OT consult -home vs SNF 2. Rt orbital and maxillary sinus fx -cons mgmt, Tylenol prn 3. Left shoulder dislocation -reduced in ED -tylenol prn 4. V tach -3 sec v tach in ED -Mg/K nl -per cardiology, start amiodarone 400 bid x 1 week then 200 bid -tele monitoring -ECHO unremarkable -outpatient cardiology f/u 5. Acute metabolic encephalopathy -avoid narcotics -Ok to leave IV out 6. Parkinson's -cont Sinemet per home routine (5 x daily IR and ER at night) -also on clonazepam HS -brain MR small vessel dz, otherwise unremarkable -f/u outpt neuro 7. POLST -new POLST completed, DNR and limited interventions, spouse signed Surrogate: spouse code satus: changed to DNR on 01/23 DVT prevention: lovenox Quality VTE Deep Vein Thrombosis/Pulmonary Embolism Present on Admission: No
--- NOTE | 2023-01-23 14:20 | PT.IPTN ---
Current Diagnoses Parkinson's disease (01/21/23) Metabolic encephalopathy (01/21/23) Ventricular tachycardia, unspecified (01/21/23) Anterior dislocation of left humerus, initial encounter (01/21/23) Personal history of other specified conditions (01/21/23) Physical Therapy Treatment Note M2 PT-IP Current Condition Start: 01/22/23 10:27 Freq: NEEDED Status: Active Protocol: Document 01/22/23 11:30 MB (Rec: 01/22/23 12:46 MB [id number]) Physical Therapy Current Condition Current Condition Evaluation Date 01/22/23 Treatment Diagnosis Fall with right orbital and nasal fractures, left shoulder dislocation, PD Onset Date 01/21/23 and another fall earlier in the week M3 PT-IP Subjective Start: 01/22/23 10:27 Freq: NEEDED Status: Active Protocol: Document 01/23/23 14:44 TS (Rec: 01/23/23 15:03 TS [id number]) Subjective Physical Therapy Visit Type Type Treatment Note Visit Start Time 14:20 Visit Stop Time 14:43 Total Visit Minutes 23 Notes Spouse present for caregiver training Number of COMPLIANCE TECHNICIAN Visits 1 Physical Therapy Visit Comments Patient Comments Pt found resting in bed, spouse in room, pt is hypoverbal, spouse motivates pt to participate in PT. Patient Goals states that pt will not want to go to SNF. She is open to it but she is concerned that he will not do well there . M4 PT-IP Mobility and Gait Start: 01/22/23 10:27 Freq: NEEDED Status: Active Protocol: Document 01/23/23 14:44 TS (Rec: 01/23/23 15:03 TS [id number]) PT-Bed Mobility Assessment Supine to Sit Supine to Sit Maximum Assistance,1 Person Assistance,Head of Bed Elevated Scooting Scooting to Edge of Bed Dependent PT-Transfer Assessment Sit to and From Stand Sit to and from Stand Maximum Assistance Equipment Transfer Assistive Device Gait Belt,Front Wheeled Walker Orthotic/Prosthetic Devices or Brace: No Comments Mobility Comments Supine to sit HOB elevated 50D MaxA from spouse for uprighting trunk and LE repositioing on EOB. Pt had difficulty following cues for RUE assistance, required tactile cues to use UE support on bed. He scooted to the EOB dependent with tans[employer]ang[employer] Dairys pad x2 PA. Spouse donned gait belt with pt sitting EOB, pt required Mitchell for static sitting balance. Pt performed sit to stand MaxA wth tactile cues for placement of UEs on FWW, pt retroleans, requires cues for weight forward. Pt ambulated ~12' in room MaxA from spouse for balance and requires max cueing for moving /turning FWW and taking steps due to freezing episodes. Stand to sit in chair ModA for slow eccentric control, provided tactile cues for reaching back to arms of chair . Pt was left in bed with spouse in room, call light nearby, chair alarm on. Gait Assessment Gait Gait Assistance Required: Maximum Assistance,1 Person Assist Distance (Feet) 1 Able to Maintain Weight Bearing Status Yes During Gait Assistive Devices Assistive Device Gait Belt,Front Wheeled Walker Orthotic/Prosthetic Devices or Brace: No Gait Deviations General Gait Pattern Ataxic,Decreased Stride Length ,Decreased Feet Clearance, Festinating,Flexed Trunk, Narrow Based Gait,Step-to Gait Factors Limiting Gait Function Factors Limiting Gait Function Abnormal Tonal Influences, Decreased Activity Tolerance, Decreased Strength,Difficulty Following Directions,Pain,Poor Balance,Poor Safety Awareness Comments Gait Comments See mobility comments. PT-Balance Assessment Sitting Balance and Reactions Static Sitting Balance Ability Fair Dynamic Sitting Balance Ability Poor Standing Balance and Reactions Static Standing Balance Ability Poor Dynamic Standing Balance Ability Poor Device Used FWW M5 PT-IP Objective Assessments Start: 01/22/23 10:27 Freq: NEEDED Status: Active Protocol: Document 01/22/23 11:30 MB (Rec: 01/22/23 12:46 MB [id number]) Orientation Orientation/Cognition Level of Alertness Lethargic Orientation Name,Age Safety Awareness Decreased Safety Awareness Memory Description Short Term Impaired,Burn Crew Member Impaired Comments Pt has very low vocal tone and his speech is difficult to understand Gross Range of Motion Upper Extremity ROM Assessment Bilaterally Impaired Lower Extremity ROM Assessment Bilaterally Impaired Strength Upper Extremity Strength Assessment Bilaterally Impaired Lower Extremity Strength Assessment Bilaterally Impaired Comments Strength Comments Rigidity all limbs, recent left shoulder dislocation and reduction, arm sling is available and opted to keep off for transfer and to eat, pillow left under arm. Tremors LEs with sitting and very limited range and strength all extremites. He cannot tolerate range or MMT. Coordination Assessment Gross Coordination Gross Coordination Impaired Muscle Tone Muscle Tone WNL No Comments Muscle Tone Comments Increased tone B PFs M7 PT-IP Assessment and Plan Start: 01/22/23 10:27 Freq: NEEDED Status: Active Protocol: Document 01/23/23 14:44 TS (Rec: 01/23/23 15:03 TS [id number]) PT Summary Assessment and Plan Potential Rehabilitation Potential Fair Summary Impairments Pain,ROM,Strength,Balance, Coordination,Tone,Cognition, Bed Mobility,Transfers,Gait, Activity Tolerance Progress Towards Goals Slow Progress due to Pain,Slow Progress due to Medical Issues,Slow Progress due to Activity Tolerance Assessment Summary Pt is making slow progress with his mobility. Spouse assisted pt in supine to sit with MaxA. He continues to be dependent for scooting to EOB with transfer pad x2pa. He performed sit to stand MaxA from spouse with FWW, initially retroleaning in standing, pt improved balance with cues for weight forward. He progressed his gait to ~12' MaxA from spouse. Pt has freezing episodes and becomes distracted requiring max cueing for gait. PT continues to recommend SNF to progress bed mobility, transfers and gait. Spouse did well with pt this session and could provide the assist he needs currently . Spouse does not think he would do well at rehab and would like him to go home. Goals Bed Mobility Goal Maximal Assistance Transfer Goal Minimal Assistance,Front Wheeled Walker Gait Goal Minimal Assistance,Front Wheel Walker Gait Distance 15 Other Goals states that pt typically requires max A for bed mobility at home Frequency of Treatment Frequency Of Treatment Once a Day Treatment Plan Physical Therapy Treatment Plan Bed Mobility Training,Transfer Training,Gait Training, Therapeutic Exercise,Balance Retraining,Discharge Planning, Hot or Cold Pack,Neuromuscular Re-ed,Coordination Retraining Other Recommendations and Next Treatment bed mob, transfers, gait w/ Focus FWW, standing functional strengthening and balance activities. Precautions Shoulder Precautions Sling Other Precautions Sling left shoulder as needed Recommendations To Nursing Amount of Assist Needed 2 Person Assist Discharge Recommendations PT Discharge Recommendations SNF Rehab Transportation Needs at Discharge Wheelchair/Cabulance
--- NOTE | 2023-01-23 15:12 | CM.DPNOTE ---
DCP Note According to Dr Diamond, patient could be ready for discharge tomorrow and anticipates that spouse will take patient home PT continues to recommend SNF however spouse, a retired RN, feels confident in she and her family's ability to care for patient once home as they have been caring for him for quite some time Met w/spouse this afternoon and she confirmed above, then asked that [facility] be resumed upon discharge Plan: Anticipate discharge home Wednesday, w/supportive spouse and family, resumption of [facility] services ( only HH PT) JW
[2023-01-23 18:00] VITALS: BP 136/74; PULSE 59; RESP 17; TEMP 36.4; O2SAT 96
[2023-01-23 20:04] VITALS: BP 164/86; PULSE 62; TEMP 36.2; O2SAT 96
[2023-01-23] MEDS: CARBIDOPA-LEVODOPA ER 50/200 TABLET 1 EACH PO (20:10)
[2023-01-23] MEDS: clonazePAM 0.5 MG TABLET PO (20:12)
[2023-01-24 00:32] VITALS: BP 174/88; PULSE 64; RESP 24; TEMP 36.2; O2SAT 97
[2023-01-24] MEDS: CARBIDOPA-LEVODOPA 25/100 TABLET 1 EACH PO (03:07)
--- NOTE | 2023-01-24 07:18 | PM.DS.1 ---
History of Present Illness History of Present Illness Date Patient Seen: 01/24/23 Chief complaint: Fall T-1, Slow Since Fall Discharge Providers Provider Date of admission: 01/21/23 23:46 Primary care physician: Deni Montenegro MD Consults: 01/22/23 01:37 Consult to Occupational Therapy Evaluate & Treat Comment: Physician Instructions: Evaluate and treat Consult to Physical Therapy Evaluate & Treat Comment: Physician Instructions: Evaluate and Treat Discharge provider: Raheem Alan MD Exam Vital Signs (past 8 hours): - 01/24/23 00:32 Temperature 97.2 F L Pulse Rate 64 Respiratory Rate 24 Blood Pressure 174/88 H Pulse Oximetry 97 Oxygen Flow Rate 0 Oxygen Delivery Method Room Air Oxygen Flow Rate 0 Objective Labs 01/21/23 17:58 01/22/23 06:21 PFS Medical History H/O recurrent urinary tract infection History of urinary incontinence (~2020) Parkinson disease (~2013) Vision disorder Surgical History Anesthesia No pertinent past surgical history Status post left rotator cuff repair Family History Father Alzheimer's disease Mother Cancer Brother Cancer Sister Hypertension Mental health problem Social History household members: spouse Smoking Status: Never smoker alcohol intake: never Discharge Plan Discharge orders & Medications Prescriptions: No Action clonazepam 0.5 mg tablet 0.5 mg PO BEDTIME PRN (Reason: insomnia) Qty: 30 1RF Rx Instructions: 1/2 to 1 tab administered 30 minutes before bedtime carbidopa-levodopa 25-100 mg Tablet 1.5 tab PO 5XD Rx Instructions: IR 0400, 0700, 1000, 1300, 1600 carbidopa-levodopa 50-200 mg tablet extended release 1 tab PO ONCE PM Follow up/Referrals: Gilberto Dior MD [Physician] - Deni Montenegro MD [Primary Care Provider] - Activity Restrictions/Additional Instructions: *You have been diagnosed with right orbital wall fracture, left shoulder dislocation *What to do: Do not blow nose,Avoid sniffing, keep head of bed elevated, ice 20-30 minutes at a time *Continue to take medications as directed [At your request you're medications have been faxed to] *Follow up with your primary care provider in 2-3 days or call [phone] Please follow-up with ENT *Return to ER if you should have [such as] [or] any new, worsening or concerning symptoms Visit Report/Discharge Packet Instructions: DI for Orbital Fracture, How to Prevent Falls Stand Alone Forms: Patient Portal/API Discharge Data Primary Care Provider: Deni Montenegro Quality VTE Deep Vein Thrombosis/Pulmonary Embolism Present on Admission: No
[2023-01-24] MEDS: CARBIDOPA-LEVODOPA 25/100 TABLET 1.5 EACH PO ×4 (09:21→16:39)
[2023-01-24] MEDS: ENOXAPARIN 40 MG/0.4 ML SYRINGE SUBCUT (09:21)
[2023-01-24 09:22] VITALS: BP 167/92; PULSE 62; RESP 18; TEMP 38; O2SAT 96
[2023-01-24] MEDS: DOCUSATE 100 MG CAPSULE PO ×2 (09:22→20:18)
[2023-01-24] MEDS: AMIODARONE 200 MG TABLET 400 MG PO ×2 (09:22→20:19)
--- NOTE | 2023-01-24 09:32 | DI.RAD.S_ITS ---
PROCEDURE: XR CHEST 1V INDICATIONS: Fever TECHNIQUE: One view of the chest was acquired. COMPARISON: [facility], CR, XR CHEST 1V, 01/21/2023, 18:07. FINDINGS: Surgical changes and devices: None. Lungs and pleura: Lungs are clear. No pleural effusions or pneumothorax. Mediastinum: Mediastinal contours appear normal. Heart size is normal. Bones and chest wall: No suspicious bony lesions. Overlying soft tissues appear unremarkable. IMPRESSION: No acute process. Dictated by: Ned Cota M.D. on 01/24/2023 at 10:28 Approved by: Ned Cota M.D. on 01/24/2023 at 10:28
[2023-01-24 09:56] LABS: Add Manual Diff / Slide Review NO; Basophils Absolute Auto 100 /uL (0-100); Basophils Percent Auto 1.2 % (0-2); Eosinophils Absolute Auto 200 /uL (0-450); Eosinophils Percent Auto 3.9 % (2-4); Hematocrit 40.1 % (41-53); Lymphocytes Absolute Auto 1500 /uL (1100-4500); Mean Corpuscular HGB Conc 34.9 % (30-36); Mean Corpuscular Hemoglobin 30.8 PG (26-34); Mean Corpuscular Volume 88.4 fL (80-100); Monocytes Absolute Auto 700 /uL (0-900); Monocytes Percent Auto 14.6 % (3-14); Neutrophils Absolute Auto 2600 /uL (1500-7000); Neutrophils Percent Auto 51.3 % (50-75); Platelet Count 235 X10^3/uL (150-400); Red Blood Cell Count 4.54 X10^6/uL (4.5-5.9); Red Cell Distribution Width 13.4 % (11.6-14.8); White Blood Cell Count 5.1 X10^3/uL (4.5-11.0)
[2023-01-24 11:20] LABS: Appearance Urine UA CLEAR; Bilirubin Urine UA NEGATIVE (NEGATIVE); Color Urine UA YELLOW; Glucose Urine UA NEGATIVE (Negative); Ketones Urine UA NEGATIVE (NEGATIVE); Leukocyte Esterase Urine UA NEGATIVE (NEGATIVE); Nitrite Urine UA NEGATIVE (Negative); Occult Blood Urine UA NEGATIVE (Negative); Protein Urine UA NEGATIVE (Negative)
[2023-01-24 11:27] LABS: Bacteria Urine None Seen; Culture Indicated Urine Cult Not Indicated; RBC Urine 0-1/HPF (0-5/HPF); Squamous Epithelial Cell Urine 0-1 /HPF (0-5/HPF); WBC Urine 0-1/HPF (0-5/HPF)
[2023-01-24 13:00] VITALS: RESP 18
--- NOTE | 2023-01-24 13:27 | PM.PN.1 ---
Subjective Subjective Date Patient Seen: 01/24/23 Interval history: He is seen today to follow-up his, right shoulder dislocation and facial fractures. He also had 3 seconds of V-tach. He was going to be going home today but instead has a temperature this morning of 100.4. His chest x-ray, UA and CBC are normal. He will be monitored For the rest of the day today and going home tomorrow most likely. During my visit he is Unresponsive and sleeping. His says this is because he had some Klonopin last night, when he panics when she is not there. Exam Vital Signs (past 8 hours): - 01/24/23 09:22 01/24/23 13:00 Temperature 100.4 F H Pulse Rate 62 Respiratory Rate 18 18 Blood Pressure 167/92 H Pulse Oximetry 96 Oxygen Flow Rate 0 Oxygen Delivery Method Room Air Oxygen Flow Rate 0 Narrative Exam Narrative: He is sleeping and does not respond to my questions. Heart is regular rate and rhythm without murmur Lungs are clear to auscultation bilaterally Abdomen is soft, nontender, no organomegaly Extremities have no ankle edema. He has bruising on the right side of his face and is guarding movement of the right shoulder. Objective Labs 01/24/23 09:45 01/22/23 06:21 Labs: Laboratory Results - last 24 hr 01/24/23 01/24/23 09:45 11:05 WBC 5.1 RBC 4.54 Hgb 14.0 Hct 40.1 L MCV 88.4 MCH 30.8 MCHC 34.9 RDW 13.4 Plt Count 235 Neut % (Auto) 51.3 Lymph % (Auto) 29.0 [place] % (Auto) 14.6 H Eos % (Auto) 3.9 Baso % (Auto) 1.2 Neut # (Auto) 2600 Lymph # (Auto) 1500 [place] # (Auto) 700 Eos # (Auto) 200 Baso # (Auto) 100 Urine Color Yellow Urine Appearance Clear Urine pH 7.0 Ur Specific [place] 1.010 Urine Protein Negative Urine Glucose (UA) Negative Urine Ketones Negative Urine Occult Blood Negative Urine Nitrate Negative Urine Bilirubin Negative Urine Urobilinogen 4.0 H Ur Leukocyte Esterase Negative Urine RBC 0-1/hpf Urine WBC 0-1/hpf Ur Squamous Epith Cells 0-1 /hpf Urine Bacteria None seen Ur Culture Indicated? Cult not indicated PFSH Medical History H/O recurrent urinary tract infection History of urinary incontinence (~2020) Parkinson disease (~2013) Vision disorder Surgical History Anesthesia No pertinent past surgical history Status post left rotator cuff repair Family History Father Alzheimer's disease Mother Cancer Brother Cancer Sister Hypertension Mental health problem Social History household members: spouse Smoking Status: Never smoker alcohol intake: never Assessment & Plan Assessment & Plan narrative: 1. GLF - head ct neg for subdural, c-spine neg acute trauma -poor stability sec to Parkinson's -PT/OT consult -home tomorrow. declines SNF placement. 2. Rt orbital and maxillary sinus fx -cons mgmt, Tylenol prn 3. Left shoulder dislocation -reduced in ED -tylenol prn 4. V tach -3 sec v tach in ED -Mg/K nl -per cardiology, give amiodarone 400 bid x 1 week then 200 bid -tele monitoring -ECHO unremarkable -outpatient cardiology f/u 5. Acute metabolic encephalopathy -avoid narcotics -Ok to leave IV out 6. Parkinson's -cont Sinemet per home routine (5 x daily IR and ER at night) -also on clonazepam HS -brain MR small vessel dz, otherwise unremarkable -f/u outpt neuro 7. Fever 100.4 on 01/24/23 -Discharge delayed. CXR negative, UA negative. WBC 5. -Follow for 24 hours and plan home 01/25 if no further fevers 8. POLST -new POLST completed, DNR and limited interventions, spouse signed Surrogate: spouse code satus: changed to DNR on 01/23 DVT prevention: lovenox Quality VTE Deep Vein Thrombosis/Pulmonary Embolism Present on Admission: No
[2023-01-24] MEDS: AMOXICILLIN/CLAV 875/125 MG 1 TAB PO ×2 (13:57→20:18)
--- NOTE | 2023-01-24 15:29 | CM.DPC ---
DCP/continued: Briefly review EMR. Per provider in AM rounds patient with fever of 104 this AM. At this time it is unclear if SNF vs. Home needed. PT and OT following but not available to see today nor is patient medically appropriate. P: CM team to follow up on d/c plan on 01-25-23. JOSE
[2023-01-24 17:00] VITALS: BP 158/83; PULSE 53; RESP 18; TEMP 36.1; O2SAT 98
[2023-01-24 20:07] VITALS: BP 159/83; PULSE 55; RESP 24; TEMP 36.4; O2SAT 97
[2023-01-24] MEDS: CARBIDOPA-LEVODOPA ER 50/200 TABLET 1 EACH PO (20:18)
[2023-01-24] MEDS: clonazePAM 0.5 MG TABLET PO (20:18)
[2023-01-25 00:20] VITALS: BP 172/87; PULSE 54; RESP 16; TEMP 36.4; O2SAT 99
[2023-01-25] MEDS: CARBIDOPA-LEVODOPA 25/100 TABLET 1 EACH PO (03:49)
[2023-01-25 04:35] VITALS: BP 164/83; PULSE 62; RESP 18; TEMP 36.6; O2SAT 97
[2023-01-25] MEDS: CARBIDOPA-LEVODOPA 25/100 TABLET 1.5 EACH PO ×3 (06:41→13:15)
[2023-01-25 08:00] VITALS: BP 155/81; PULSE 56; RESP 20; TEMP 36.2; O2SAT 96
[2023-01-25] MEDS: AMOXICILLIN/CLAV 875/125 MG 1 TAB PO (09:44)
[2023-01-25] MEDS: DOCUSATE 100 MG CAPSULE PO (09:45)
[2023-01-25] MEDS: AMIODARONE 200 MG TABLET 400 MG PO (09:45)
[2023-01-25] MEDS: ENOXAPARIN 40 MG/0.4 ML SYRINGE SUBCUT (09:45)
--- NOTE | 2023-01-25 10:41 | PT.IPTN ---
Current Diagnoses Parkinson's disease (01/21/23) Metabolic encephalopathy (01/21/23) Ventricular tachycardia, unspecified (01/21/23) Anterior dislocation of left humerus, initial encounter (01/21/23) Personal history of other specified conditions (01/21/23) Physical Therapy Treatment Note M2 PT-IP Current Condition Start: 01/22/23 10:27 Freq: NEEDED Status: Active Protocol: Document 01/22/23 11:30 MB (Rec: 01/22/23 12:46 MB [id number]) Physical Therapy Current Condition Current Condition Evaluation Date 01/22/23 Treatment Diagnosis Fall with right orbital and nasal fractures, left shoulder dislocation, PD Onset Date 01/21/23 and another fall earlier in the week M3 PT-IP Subjective Start: 01/22/23 10:27 Freq: NEEDED Status: Active Protocol: Document 01/25/23 10:50 TS (Rec: 01/25/23 11:08 TS [id number]) Subjective Physical Therapy Visit Type Type Treatment Note Visit Start Time 10:41 Visit Stop Time 10:49 Total Visit Minutes 8 Notes Spouse present in room. Physical Therapy Visit Comments Patient Comments Pt found up with spouse ambulating in room with FWW, pt is more verbal this morning and more alert. Spouse reports pt is d/c today and just waiting for the doctor, pt agreeable to PT. M4 PT-IP Mobility and Gait Start: 01/22/23 10:27 Freq: NEEDED Status: Active Protocol: Document 01/25/23 10:50 TS (Rec: 01/25/23 11:08 TS [email or web address]) PT-Bed Mobility Assessment Sit to Supine Sit to Supine Moderate Assistance PT-Transfer Assessment Comments Mobility Comments Pt found up in room ambulating with spouse, agreeable to PT. Pt ambulated ~20' in room MaxA for balance and FWW management. Pt with freezing episodes and requires verbal and tactile cues for taking steps. Pt had x1 posterior LOB when stepping back towards bed, requiring MaxA for correction. Sit to supine ModA from spouse for LEs into bed, cues for provided for sequencing. Pt was left in bed with call light nearby, spouse in room, awaiting d/c. Gait Assessment Gait Gait Assistance Required: Maximum Assistance,1 Person Assist Distance (Feet) 20 Able to Maintain Weight Bearing Status Yes During Gait Assistive Devices Assistive Device Gait Belt,Front Wheeled Walker Orthotic/Prosthetic Devices or Brace: No Gait Deviations General Gait Pattern Ataxic,Decreased Stride Length ,Decreased Feet Clearance, Festinating,Flexed Trunk, Narrow Based Gait,Step-to Gait Factors Limiting Gait Function Factors Limiting Gait Function Abnormal Tonal Influences, Decreased Activity Tolerance, Decreased Strength,Difficulty Following Directions,Pain,Poor Balance,Poor Safety Awareness Comments Gait Comments See mobility comments. PT-Balance Assessment Sitting Balance and Reactions Static Sitting Balance Ability Fair Dynamic Sitting Balance Ability Poor Standing Balance and Reactions Static Standing Balance Ability Poor Dynamic Standing Balance Ability Poor Device Used FWW M5 PT-IP Objective Assessments Start: 01/22/23 10:27 Freq: NEEDED Status: Active Protocol: Document 01/22/23 11:30 MB (Rec: 01/22/23 12:46 MB [id number]) Orientation Orientation/Cognition Level of Alertness Lethargic Orientation Name,Age Safety Awareness Decreased Safety Awareness Memory Description Short Term Impaired,Ambulatory Analyst Impaired Comments Pt has very low vocal tone and his speech is difficult to understand Gross Range of Motion Upper Extremity ROM Assessment Bilaterally Impaired Lower Extremity ROM Assessment Bilaterally Impaired Strength Upper Extremity Strength Assessment Bilaterally Impaired Lower Extremity Strength Assessment Bilaterally Impaired Comments Strength Comments Rigidity all limbs, recent left shoulder dislocation and reduction, arm sling is available and opted to keep off for transfer and to eat, pillow left under arm. Tremors LEs with sitting and very limited range and strength all extremites. He cannot tolerate range or MMT. Coordination Assessment Gross Coordination Gross Coordination Impaired Muscle Tone Muscle Tone WNL No Comments Muscle Tone Comments Increased tone B PFs M7 PT-IP Assessment and Plan Start: 01/22/23 10:27 Freq: NEEDED Status: Active Protocol: Document 01/25/23 10:50 TS (Rec: 01/25/23 11:08 TS [id number]) PT Summary Assessment and Plan Potential Rehabilitation Potential Fair Summary Impairments Pain,ROM,Strength,Balance, Coordination,Tone,Cognition, Bed Mobility,Transfers,Gait, Activity Tolerance Progress Towards Goals Slow Progress due to Pain,Slow Progress due to Medical Issues,Slow Progress due to Activity Tolerance Assessment Summary Pt is more alert and verbal this morning, could respond to therapists' questions. He progressed his gait to ~20' MaxA for balance and FWW management. Pt requires max cueing for gait due to freezing episodes. He had x1 posterior LOB stepping backwards to bed requiring MaxA for correction. PT continues to recommend SNF to improve strength and balance. Spouse would like pt to return home. If he goes home would recommend HHPT. Goals Bed Mobility Goal Maximal Assistance Transfer Goal Minimal Assistance,Front Wheeled Walker Gait Goal Minimal Assistance,Front Wheel Walker Gait Distance 15 Other Goals states that pt typically requires max A for bed mobility at home Frequency of Treatment Frequency Of Treatment Once a Day Treatment Plan Physical Therapy Treatment Plan Bed Mobility Training,Transfer Training,Gait Training, Therapeutic Exercise,Balance Retraining,Discharge Planning, Hot or Cold Pack,Neuromuscular Re-ed,Coordination Retraining Other Recommendations and Next Treatment bed mob, transfers, gait w/ Focus FWW, standing functional strengthening and balance activities. Precautions Shoulder Precautions Sling Other Precautions Sling left shoulder as needed Recommendations To Nursing Amount of Assist Needed 2 Person Assist Discharge Recommendations PT Discharge Recommendations SNF Rehab Transportation Needs at Discharge Wheelchair/Cabulance
--- NOTE | 2023-01-25 11:19 | OT.IPNOTE ---
Ot eval and treat order received, chart reviewed and nursing consulted. Pt is planned for discharge home with his today. Pt's declined OT services at this time stating that she is an nurse and is use to assisting with pt's needs. Will discharge order per pt's family request.
[2023-01-25 12:00] VITALS: BP 135/77; PULSE 52; RESP 20; TEMP 35.9; O2SAT 97
--- NOTE | 2023-01-25 13:00 | PM.DS.1 ---
History of Present Illness History of Present Illness Date Patient Seen: 01/25/23 Time Patient Seen: 08:00 Chief complaint: Fall T-1, Slow Since Fall Narrative: Patient 72-year-old male history of Parkinson's presents today after a ground level fall yesterday.? reports that he runs because feels better he was running when he fell forward and landed his face.? He has right eye contusion complaining of left shoulder pain.? She reports no he has chronic shoulder problems and rotator cuff problems.? He is actually been here and evaluated before with both shoulders dislocated.? Really complaining of only left shoulder pain.? also reports that since the fall yesterday he has been more confused today.? He wears depends she reports that he woke up dry today he is not had very much to eat or drink.? No fever.? He is complaining some right eye pain as well. The patient had few seconds of V. tach in the ER and cardiology was consulted. Recommend it is starting the patient on amiodarone by mouth and admitted for further management. Discharge Providers Provider Date of admission: 01/21/23 23:46 Discharge Date: 01/25/23 Primary care physician: Deni Montenegro MD Consults: 01/22/23 01:37 Consult to Occupational Therapy Evaluate & Treat Comment: Physician Instructions: Evaluate and treat Consult to Physical Therapy Evaluate & Treat Comment: Physician Instructions: Evaluate and Treat Discharge provider: Edson Kaba DO Summary Hospital Course Discharge Diagnosis: 1. Ground level fall 2. Rt orbital and maxillary sinus fx 3. Left shoulder dislocation 4. V tach, resolved 5. Acute toxic or metabolic encephalopathy, resolved 6. Parkinson's 7. Fever 100.4 on 01/24/23, possibe sinusitis 8. POLST Hospital Course: This is a 72 year old male with PMH of parkinson's who presented after a fall with left shoulder dislocation and Rt orbital fracture. Orthopedic injuries were treated in the emergency room, but prior to discharge patient had 3 second run of V-tach in the ER. He was admitted for further monitoring and echocardiogram was unremarkable and no further events were noted. He was recommended by cardiology to start amiodarone 400 mg BID for 1 week then 200 mg BID after. Outpatient cardiology follow up is recommended. Prior to discharge he had a fever to 100.4, which did not recur. He was started on augmentin due to orbital fracture for possible sinusitis with improvement in fevers and no symptoms. He was discharged home after therapy evaluations, and spouse delclined SNF placement. He did develop confusion as well during his stay, removing IV lines. Opiates were held with improvement. His POLST was also updated to DNR this admission. Time Spent with Patient Time spent: Greater than 30 minutes Exam Vital Signs (past 8 hours): - 01/25/23 08:00 01/25/23 09:44 01/25/23 12:00 Temperature 97.2 F L 96.6 F L Pulse Rate 56 L 52 L Respiratory Rate 20 20 Blood Pressure 155/81 H 135/77 Pulse Oximetry 96 97 Oxygen Delivery Method Room Air Oxygen Flow Rate 0 0 Oxygen Delivery Method Room Air Oxygen Flow Rate 0 Narrative Exam Narrative: Awake alert in no acute distress Heart is regular rate and rhythm without murmur Lungs are clear to auscultation bilaterally Abdomen is soft, nontender, no organomegaly Extremities have no ankle edema. He has bruising on the right side of his face and is guarding movement of the right shoulder. Objective Labs 01/24/23 09:45 01/22/23 06:21 [facility] Medical History H/O recurrent urinary tract infection History of urinary incontinence (~2020) Parkinson disease (~2013) Vision disorder Surgical History Anesthesia No pertinent past surgical history Status post left rotator cuff repair Family History Father Alzheimer's disease Mother Cancer Brother Cancer Sister Hypertension Mental health problem Social History household members: spouse Smoking Status: Never smoker alcohol intake: never Discharge Plan Discharge Plan Patient Disposition: Home Provider Discharge Comment: You were admitted to the hospital with a common arrythmia after a fall. Echocardiogram (US of your heart) was unremarkable and this did not recur but a pilot boat operator recommended a medication to take to prevent this from recurring. You were started on antibiotics for possible sinusitis after a fall and a fever. No other changes to your home medications are recommended. Please follow up with PCP for cardiology referral as an outpatient. Discharge orders & Medications Prescriptions: New amoxicillin-pot clavulanate 875-125 mg Tablet 1 tab PO BID 7 Days Qty: 14 0RF amiodarone 200 mg tablet See Rx Instructions .ROUTE .COMPLEX Qty: 72 0RF Rx Instructions: 400 mg BID for 6 days, followed by 200 mg BID for 24 days Continued clonazepam 0.5 mg tablet 0.5 mg PO BEDTIME PRN (Reason: insomnia) Qty: 30 1RF Rx Instructions: 1/2 to 1 tab administered 30 minutes before bedtime carbidopa-levodopa 25-100 mg Tablet 1.5 tab PO 5XD Rx Instructions: IR 0400, 0700, 1000, 1300, 1600 carbidopa-levodopa 50-200 mg tablet extended release 1 tab PO ONCE PM Follow up/Referrals: Gilberto Dior MD [Physician] - Deni Montenegro MD [Primary Care Provider] - Activity Restrictions/Additional Instructions: *You have been diagnosed with right orbital wall fracture, left shoulder dislocation *What to do: Do not blow nose,Avoid sniffing, keep head of bed elevated, ice 20-30 minutes at a time *Continue to take medications as directed [At your request you're medications have been faxed to] *Follow up with your primary care provider in 2-3 days or call [phone] Please follow-up with ENT *Return to ER if you should have [such as] [or] any new, worsening or concerning symptoms Diet/Activity/Treatments Diet: Diet as Tolerated Activity: As tolerated no restrictions Visit Report/Discharge Packet Instructions: DI for Sinusitis, DI for Orbital Fracture, How to Prevent Falls, Amiodarone Stand Alone Forms: Patient Portal/API, Stroke Signs & Symptoms Discharge Data Primary Care Provider: Deni Montenegro Discharges patient from system. Discharge Date/Time: 01/25/23 13:45 Quality VTE Deep Vein Thrombosis/Pulmonary Embolism Present on Admission: No
--- NOTE | 2023-01-25 14:30 | CM.DPC ---
DCP Discharge HOme with HH Per MD, pt is medically stable to d/c home today as spouse confirms they decline SNF and want pt to discharge home with HH as spouse is a retired RN and feels she can manage his needs. PT recommends SNF rehab or / assist with HH. OT did not see pt today as spouse declined OT and states she is taking pt home today. SW contacted [facility] and updated Magdi on pt d/c home with spouse and Resumption of Care Orders and d/c summary was faxed for review. Plan: Patient to discharge home today via spouse POV and Resume [facility] after discharge. LEANNE Granda
== END 2023-01-25 13:45 | disposition home or self-care (01) | DRG 562 ==
LOC: ED 23:46 → AC 01-22 09:11
PROVIDERS: Family Medicine; Admitting Provider Internal Medicine; Emergency Provider Emergency Medicine; PCP Pediatrics; Visit Provider Internal Medicine
DX: S43.005A Unspecified dislocation of left shoulder joint, initial encounter (principal); G92.8 Other toxic encephalopathy; S02.31XA Fracture of orbital floor, right side, initial encounter for closed fracture; S02.19XA Other fracture of base of skull, initial encounter for closed fracture; I47.20 Ventricular tachycardia, unspecified; T40.2X5A Adverse effect of other opioids, initial encounter; Y93.02 Activity, running; G20 Parkinson's disease; J32.9 Chronic sinusitis, unspecified; W18.30XA Fall on same level, unspecified, initial encounter; Z66 Do not resuscitate
CPT/HCPCS: 23650; 36415; 51701; 51798; 70450; 70486; 70551; 71045; 72125; 73020; 73030; 80053; 81001; 82550; 83690; 83735; 84145; 84484; 85025; 93005; 93010; 93306; 96374; 96376; 97116; 97162; 97530; 99285; J1170; J1650; J2704

== ENCOUNTER 2023-02-20 09:48 | Emergency (ER) | payer MEDICARE, OTHER, SELFPAY ==
[2023-01-22 01:33] VITALS: BMI 27.0
[2023-02-20] VITALS (24 sets, daily range): BP systolic 115–179; BP diastolic 60–102; PULSE 48–74; RESP 13–30; TEMP 36.5; O2SAT 91–100; BMI 26.5
--- NOTE | 2023-02-20 09:56 | DI.RAD.S_ITS ---
PROCEDURE: XR SHOULDER LT MIN 2V INDICATIONS: pain, prior dislocation, deformity TECHNIQUE: 2 views of the shoulder were acquired. COMPARISON: [facility], CR, XR SHOULDER LT 1V, 01/21/2023, 22:10. [facility], CR, XR SHOULDER LT MIN 2V, 01/21/2023, 16:50. FINDINGS: Bones: Left anterior shoulder dislocation is seen. The sex deformity is seen, which is stable compared to the prior examination. Age-appropriate bony degenerative changes are seen. Soft tissues: No suspicious soft tissue calcifications. The visualized lung demonstrates an unremarkable appearance. IMPRESSION: Left anterior shoulder dislocation. Chronic Hill-Sachs deformity. Dictated by: Jeremy Harris M.D. on 02/20/2023 at 9:45 Approved by: Jeremy Harris M.D. on 02/20/2023 at 9:45
--- NOTE | 2023-02-20 09:58 | ED_ITS ---
HPI - Extremity Injury (Upper) General Chief Complaint: Extremity Injury, Upper Stated Complaint: dislocated shoulder Time Seen by Provider: 02/20/23 09:56 Source: patient and family Mode of arrival: Wheelchair History of Present Illness HPI narrative: 72-year-old male with history of Parkinson's and multiple prior shoulder dislocations presents with his in the chief complaint of left shoulder pain and decreased range of motion for the past 4 hours. He went to bed in normal state of health, woke up this morning and was reaching down and forward with his arm when he felt pain and then became unable to move it. She states it has been ?out? for about 4 hours or so. He does have some tingling in his fingertips. Denies any trauma or other injury Related Data Home Medications Medication Instructions Recorded Confirmed carbidopa 25 mg-levodopa 100 mg 1.5 tab PO 5XD 12/26/21 02/20/23 tablet carbidopa ER 50 mg-levodopa 200 mg 1 tab PO ONCE PM 01/22/23 01/22/23 tablet,extended release Previous Rx's Medication Instructions Recorded clonazepam 0.5 mg tablet 0.5 mg PO BEDTIME PRN insomnia #30 03/31/22 tabs amiodarone 200 mg tablet See Rx Instructions .Route 01/25/23 .COMPLEX #72 tabs Allergies Allergy/AdvReac Type Severity Reaction Status Date / Time No Known Drug Allergies Allergy Verified 02/20/23 09:56 Review of Systems Review of Systems Narrative: GENERAL: Denies chills, fatigue, malaise, fever, sweats. HEENT: Denies sinus pain, ear pain, sore throat, difficulty swallowing, dizziness. RESPIRATORY: Denies dyspnea, cough, wheezing, hemoptysis, sputum. CARDIOVASCULAR: Denies chest pain, palpitations, orthopnea, edema, GASTROINTESTINAL: Denies nausea, vomiting, abdominal pain, diarrhea, constipation, melena. : Denies dysuria, frequency, incontinence, hematuria, urinary retention. MUSCULOSKELETAL: See HPI SKIN: Denies rash, skin lesions, or other NEUROLOGIC: Denies weakness, headache, numbness, change in speech, confusion, seizures, incoordination. PSYCHIATRIC: No concerning psychosocial issues. 12 point review of systems is negative except for those stated above Patient History Medical History H/O recurrent urinary tract infection History of urinary incontinence (~2020) Parkinson disease (~2013) Vision disorder Surgical History Anesthesia No pertinent past surgical history Status post left rotator cuff repair Family History Father Alzheimer's disease Mother Cancer Brother Cancer Sister Hypertension Mental health problem Social History household members: spouse Smoking Status: Never smoker alcohol intake: never Smoking Status: Never smoker alcohol intake frequency: holidays/special occasions only Substance Use Type: does not use Exam Narrative Exam Narrative: GENERAL: [72] year old patient appears stated age. Well-developed patient, in mild distress. HEAD: Atraumatic. Normocephalic. EYES: Pupils equal round and reactive. Extraocular motions intact. No scleral icterus. No injection or drainage. ENT: Nose without bleeding, purulent drainage. Throat without erythema, tonsillar hypertrophy or exudate. Airway patent. NECK: Trachea midline. Non tender CARDIOVASCULAR: Regular rate and rhythm without murmurs, gallops, or rubs. RESPIRATORY: Clear to auscultation. Breath sounds equal bilaterally. No wheezes, rales, or rhonchi. GASTROINTESTINAL: Abdomen soft, non-tender, nondistended. EXTREMITIES: Left shoulder pain with obvious deformity, findings consistent w ith likely dislocation, closed, isolated and cap refill, distal pulses intact, he does complain of some tingling in the tips of his fingers BACK: Nontender without deformity or crepitance. No flank tenderness. NEURO: AOx3. SKIN: No rash or erythema of visible areas Initial Vital Signs Initial Vital Signs: Vital Signs Temperature 97.7 F 02/20/23 09:52 Pulse Rate 50 L 02/20/23 09:52 Respiratory Rate 14 02/20/23 09:52 Blood Pressure 130/73 02/20/23 09:52 Pulse Oximetry 100 02/20/23 09:52 Oxygen Delivery Method Room Air 02/20/23 09:52 Procedures Orthopedic Joint Reduction Joint #1: Time Out Performed: Yes Side: left Joint Reduction Location: shoulder Shoulder Technique Used (if applicable): traction/counter-traction and external rotation Post-reduction neuro exam: intact Post-reduction vascular: intact Post Reduction X-Ray Obtained: Yes Post Reduction X-Ray Results: reduced Splint Applied: Yes Patient Tolerated Procedure: Well Procedural Sedation Consent signed: Yes Time out performed: Yes Indication: fracture/dislocation reduction ASA Class: III Mallampati Airway Classification: Class II Preparation: mineralogy teacher applied, pulse oximeter, capnometry used, supplemental O2 applied, suction/airway equipment at bedside and IV secured IV Propofol dose (mg): 125 Intraservice time/total sedation time (min): 12 ED Sedation Level: Moderate (Concious) Patient Tolerated Procedure: Well Complications: none Course Orders Ordered: ED Orders 02/20/23 09:56 XR shoulder LT min 2V Stat 02/20/23 10:55 XR shoulder LT min 2V Stat Discontinued Medications Carbidopa/Levodopa (Carbidopa-Levodopa 25/100 Tablet) 1.5 each PO NOW ONE Stop: 02/20/23 11:10 Last Admin: 02/20/23 11:24 Dose: 1.5 each Documented By: HOMA Propofol (Propofol 200 Mg/20 Ml Vial) 85 mg 1 mg/kg (85 mg) IV NOW ONE Stop: 02/20/23 09:57 Last Admin: 02/20/23 11:19 Dose: Not Given Documented By: HOMA Propofol (Propofol 200 Mg/20 Ml Vial) 125 mg IV NOW ONE Stop: 02/20/23 11:19 Last Admin: 02/20/23 11:19 Dose: 125 mg Documented By: HOMA Vital Signs Vital signs: Vital Signs - 8 hr 02/20/23 09:52 02/20/23 10:22 02/20/23 10:23 Temperature 97.7 F Pulse Rate 50 L 53 L 54 L Respiratory Rate 14 Blood Pressure 130/73 Pulse Oximetry 100 91 96 Oxygen Delivery Method Room Air Oxygen Flow Rate 02/20/23 10:23 02/20/23 10:25 02/20/23 10:30 Temperature Pulse Rate 53 L Respiratory Rate 18 Blood Pressure 141/83 H 174/102 H Pulse Oximetry 97 Oxygen Delivery Method Oxygen Flow Rate 02/20/23 10:30 02/20/23 10:35 02/20/23 10:38 Temperature Pulse Rate 55 L 58 L 59 L Respiratory Rate 23 20 20 Blood Pressure Pulse Oximetry 97 97 98 Oxygen Delivery Method Oxygen Flow Rate 02/20/23 10:38 02/20/23 10:40 02/20/23 10:40 Temperature Pulse Rate 58 L Respiratory Rate 21 Blood Pressure 160/92 H 179/98 H Pulse Oximetry 98 Oxygen Delivery Method Oxygen Flow Rate 02/20/23 10:45 02/20/23 10:46 02/20/23 10:46 Temperature Pulse Rate 60 57 L Respiratory Rate 18 19 Blood Pressure 131/73 Pulse Oximetry 99 99 Oxygen Delivery Method Oxygen Flow Rate 3 02/20/23 10:50 02/20/23 10:50 02/20/23 10:55 Temperature Pulse Rate 53 L Respiratory Rate 22 Blood Pressure 142/83 H 116/60 Pulse Oximetry 96 Oxygen Delivery Method Oxygen Flow Rate 0 02/20/23 10:55 02/20/23 10:57 02/20/23 10:57 Temperature Pulse Rate 48 L 49 L Respiratory Rate 30 H 16 Blood Pressure 115/63 Pulse Oximetry 99 99 Oxygen Delivery Method Oxygen Flow Rate 02/20/23 11:00 02/20/23 11:00 02/20/23 11:05 Temperature Pulse Rate 51 L 51 L Respiratory Rate 15 13 Blood Pressure 119/68 Pulse Oximetry 98 98 Oxygen Delivery Method Oxygen Flow Rate 02/20/23 11:06 02/20/23 11:06 02/20/23 10:40 Temperature Pulse Rate 52 L 62 Respiratory Rate 14 20 Blood Pressure 165/68 H Pulse Oximetry 99 Oxygen Delivery Method Oxygen Flow Rate 02/20/23 11:10 02/20/23 11:10 02/20/23 11:15 Temperature Pulse Rate 53 L Respiratory Rate 14 Blood Pressure 150/78 H 141/79 H Pulse Oximetry 98 Oxygen Delivery Method Oxygen Flow Rate 02/20/23 11:15 02/20/23 11:20 02/20/23 11:20 Temperature Pulse Rate 52 L 57 L Respiratory Rate 13 15 Blood Pressure 166/80 H Pulse Oximetry 99 99 Oxygen Delivery Method Oxygen Flow Rate 02/20/23 11:25 02/20/23 11:26 02/20/23 11:26 Temperature Pulse Rate 59 L 57 L Respiratory Rate 17 19 Blood Pressure 172/84 H Pulse Oximetry 98 99 Oxygen Delivery Method Oxygen Flow Rate 02/20/23 11:30 02/20/23 11:31 02/20/23 11:31 Temperature Pulse Rate 61 74 Respiratory Rate 18 18 Blood Pressure 157/89 H Pulse Oximetry 99 100 Oxygen Delivery Method Oxygen Flow Rate MDM - Extremity Injury (Upper) MDM Narrative Medical decision making narrative: [72] year old patient presents with left shoulder pain consistent with dislocation Multiple etiologies for patient's symptoms considered including, but not limited to: [Fracture versus dislocation versus other] Prior Charts reviewed in our EMR Primary Historian: patient Imaging reviewed: Left anterior shoulder dislocation with evidence of chronic Hill-Sachs deformity, postreduction films confirmed reduction Patient's symptoms improved over duration of stay with above-stated therapies. Findings and discharge diagnosis discussed with patient/family followed by verbalization of understanding Return precautions discussed with patient/family whom verbalize understanding of diagnosis and plan Discharge Plan Departure Patient Disposition: Home Clinical Impression: Anterior dislocation of left shoulder Instructions: DI for Shoulder Dislocation Activity Restrictions/Additional Instructions: *You have been diagnosed with [left shoulder dislocation with successful reduction] *What to do: *Please continue to take your regular medications as directed. [ ] New medication prescriptions sent to your pharmacy: [ ] [ ] New medication written as a paper prescription [ ] No new medications given *Please follow up with your primary care provider in 2-3 days, call for an appointment. Let them know you were seen in the Emergency Department and that we ask that you be seen in follow up. We will electronically transmit a record of today's note if your PCP is in our system *Return to Emergency Department if you should have any new, worsening or concerning symptoms, such as [fever greater than 101 F, shaking chills, worsening pain, persistent vomiting or other bothersome symptoms] Prescriptions: No Action clonazepam 0.5 mg tablet 0.5 mg PO BEDTIME PRN (Reason: insomnia) Qty: 30 1RF Rx Instructions: 1/2 to 1 tab administered 30 minutes before bedtime carbidopa-levodopa 25-100 mg Tablet 1.5 tab PO 5XD Rx Instructions: IR 0400, 0700, 1000, 1300, 1600 carbidopa-levodopa 50-200 mg tablet extended release 1 tab PO ONCE PM amiodarone 200 mg tablet See Rx Instructions .ROUTE .COMPLEX Qty: 72 0RF Rx Instructions: 400 mg BID for 6 days, followed by 200 mg BID for 24 days Referrals: Deni Montenegro MD [Primary Care Provider] - Stand Alone Forms: Patient Portal/API
--- NOTE | 2023-02-20 10:55 | DI.RAD.S_ITS ---
PROCEDURE: XR SHOULDER LT MIN 2V INDICATIONS: post reduction TECHNIQUE: 2 views of the shoulder were acquired. COMPARISON: [facility], CR, XR SHOULDER LT MIN 2V, 02/20/2023, 10:23. [facility], CR, XR CHEST 1V, 01/24/2023, 9:34. [facility], CR, XR SHOULDER LT 1V, 01/21/2023, 22:10. FINDINGS: Bones: The left shoulder has now been appropriately relocated. There is again seen a stable Hill-Sachs deformity. Underlying degenerative changes are seen. Soft tissues: No suspicious soft tissue calcifications. The cardiac contours are within normal limits. The aorta demonstrates calcification and tortuosity. The visualized lung demonstrates an unremarkable appearance. IMPRESSION: Left shoulder relocation. Chronic, stable Hill-Sachs deformity. Dictated by: Jeremy Harris M.D. on 02/20/2023 at 10:22 Approved by: Jeremy Harris M.D. on 02/20/2023 at 10:23
[2023-02-20] MEDS: propofoL 200 MG/20 ML VIAL 125 MG IV (11:19)
[2023-02-20] MEDS: CARBIDOPA-LEVODOPA 25/100 TABLET 1.5 EACH PO (11:24)
--- NOTE | 2023-02-20 11:24 | RT ---
At bedside for PRS, shoulder. Bag mask unit with suction on and functional at bedside. Etco2 on, no distress noted and pt kym well. Released by GEOFFREY Ohara @ [id number]. Pt on room air post PRS at 99%, at bedside and all rales up
== END 2023-02-20 11:55 | disposition home or self-care (01) ==
PROVIDERS: Emergency Provider Emergency Medicine; PCP Pediatrics
DX: S43.005A Unspecified dislocation of left shoulder joint, initial encounter (principal); X50.9XXA Other and unspecified overexertion or strenuous movements or postures, initial encounter
CPT/HCPCS: 23650; 36415; 73030; 99152; 99283; 99285; J2704

== ENCOUNTER 2023-02-21 19:44 | Emergency (ER) | payer MEDICARE, OTHER, SELFPAY ==
[2023-01-22 01:33] VITALS: BMI 27.0
[2023-02-21 19:53] VITALS: BP 179/96; PULSE 66; RESP 18; TEMP 37; O2SAT 98; BMI 26.5
--- NOTE | 2023-02-21 20:00 | DI.RAD.S_ITS ---
PROCEDURE: XR SHOULDER LT MIN 2V INDICATIONS: shoulder pain, ? dislocation, relocated yesterday TECHNIQUE: 2 views of the shoulder were acquired. COMPARISON: [facility], [facility], XR SHOULDER LT MIN 2V, 02/20/2023, 10:58. FINDINGS: Bones: There is slight inferior subluxation at the glenohumeral joint space compared to post reduction views from 08/13. However, no gross dislocation or fracture. Soft tissues: No suspicious soft tissue calcifications. IMPRESSION: Slight inferior subluxation. No visualized fracture Dictated by: Veena Oliveira M.D. on 02/21/2023 at 21:03 Approved by: Veena Oliveira M.D. on 02/21/2023 at 21:04
--- NOTE | 2023-02-21 21:34 | ED.UPPEXIN ---
HPI - Extremity Injury (Upper) General Chief Complaint: Extremity Injury, Upper Stated Complaint: L/ possible Dislocated shoulder Time Seen by Provider: 02/21/23 20:18 Source: patient Mode of arrival: Wheelchair History of Present Illness HPI narrative: Patient 72-year-old male history of Parkinson's chronic left shoulder dislocation presents today with left shoulder dislocation. He was seen evaluated here yesterday for the same. Yesterday he required procedure sedation. reports today he was just reaching for something and it came out. However he has full range of motion she thinks it is back in he is no numbness tingling or weakness. She gave him a pain pill prior to arrival. is primary historian Related Data Home Medications Medication Instructions Recorded Confirmed carbidopa 25 mg-levodopa 100 mg 1.5 tab PO 5XD 12/26/21 02/20/23 tablet carbidopa ER 50 mg-levodopa 200 mg 1 tab PO ONCE PM 01/22/23 01/22/23 tablet,extended release Previous Rx's Medication Instructions Recorded clonazepam 0.5 mg tablet 0.5 mg PO BEDTIME PRN insomnia #30 03/31/22 tabs amiodarone 200 mg tablet See Rx Instructions .Route 01/25/23 .COMPLEX #72 tabs Allergies Allergy/AdvReac Type Severity Reaction Status Date / Time No Known Drug Allergies Allergy Verified 02/20/23 09:56 Review of Systems Review of Systems ROS Unobtainable: All systems reviewed & are unremarkable except as noted in HPI and below Patient History Medical History H/O recurrent urinary tract infection History of urinary incontinence (~2020) Parkinson disease (~2013) Vision disorder Surgical History Anesthesia No pertinent past surgical history Status post left rotator cuff repair Family History Father Alzheimer's disease Mother Cancer Brother Cancer Sister Hypertension Mental health problem Social History household members: spouse Smoking Status: Never smoker alcohol intake: never Smoking Status: Never smoker alcohol intake frequency: holidays/special occasions only Substance Use Type: does not use Exam Initial Vital Signs Initial Vital Signs: Vital Signs Temperature 98.6 F 02/21/23 19:53 Pulse Rate 66 02/21/23 19:53 Respiratory Rate 18 02/21/23 19:53 Blood Pressure 179/96 H 02/21/23 19:53 Pulse Oximetry 98 02/21/23 19:53 Oxygen Delivery Method Room Air 02/21/23 19:53 GENERAL: Alert pleasant well-appearing 72-year-old male CARDIOVASCULAR: peripheral pulses in tact, cap refill <2 sec RESPIRATORY: No respiratory distress, speaks in full sentences without difficulty EXTREMITIES: Normal range of motion, no clubbing or edema. Neurovascularly intact Left shoulder able to take left hand touch right shoulder able to lift it all the way up over his head able to reach it out sideways distal radial pulse intact sensation over deltoid intact NEUROLOGICAL: Cranial nerves II through XII grossly intact. Normal gait and speech. SKIN: Warm, dry, no petechiae, no rashes or lesions. Course Orders Ordered: ED Orders 02/21/23 20:00 XR shoulder LT min 2V Stat Vital Signs Vital signs: Vital Signs - 8 hr 02/21/23 19:53 02/21/23 21:46 Temperature 98.6 F Pulse Rate 66 63 Respiratory Rate 18 16 Blood Pressure 179/96 H 184/88 H Pulse Oximetry 98 97 Oxygen Delivery Method Room Air Room Air MDM - Extremity Injury (Upper) Imaging Data Extremity x-ray #1: Radiologist's Impression: PROCEDURE:? XR SHOULDER LT MIN 2V ? INDICATIONS:? shoulder pain, ? dislocation, relocated yesterday ? TECHNIQUE:? 2 views of the shoulder were acquired.? ? COMPARISON:? , [facility], XR SHOULDER LT MIN 2V, 02/20/2023, 10:58. ? FINDINGS:? ? Bones:? There is slight inferior subluxation at the glenohumeral joint space compared to post reduction views from 08/13.? However, no gross dislocation or fracture. ? Soft tissues:? No suspicious soft tissue calcifications.? ? IMPRESSION:? Slight inferior subluxation.? No visualized fracture ? ? Dictated by: Veena Oliveira M.D. on 02/21/2023 at 21:03 ? ? Approved by: Veena Oliveira M.D. on 02/21/2023 at 21:04 ? MDM Narrative Medical decision making narrative: Patient has chronic ongoing left shoulder dislocations. Right for reports that they will not do surgery to fix it. She is looking at different braces for him. He is full range of motion today pain is well-controlled x-ray shows slight inferior subluxation. Discussed with and patient if they would like me to try and reduce it at this time they both said known they would just like to go home. This is reasonable. Discharge Plan Departure Patient Disposition: Home Clinical Impression: Inferior subluxation of left shoulder Instructions: DI for Shoulder Dislocation Activity Restrictions/Additional Instructions: *You have been diagnosed with mild left shoulder dislocation *What to do: *Continue to take medications as directed *Follow up with your primary care provider in 2-3 days or call [phone] Recommend following up with ortho for appropriate brace *Return to ER if you should have any new, worsening or concerning symptoms Prescriptions: No Action clonazepam 0.5 mg tablet 0.5 mg PO BEDTIME PRN (Reason: insomnia) Qty: 30 1RF Rx Instructions: 1/2 to 1 tab administered 30 minutes before bedtime carbidopa-levodopa 25-100 mg Tablet 1.5 tab PO 5XD Rx Instructions: IR 0400, 0700, 1000, 1300, 1600 carbidopa-levodopa 50-200 mg tablet extended release 1 tab PO ONCE PM amiodarone 200 mg tablet See Rx Instructions .ROUTE .COMPLEX Qty: 72 0RF Rx Instructions: 400 mg BID for 6 days, followed by 200 mg BID for 24 days Referrals: Deni Montenegro MD [Primary Care Provider] - Stand Alone Forms: Patient Portal/API
[2023-02-21 21:46] VITALS: BP 184/88; PULSE 63; RESP 16; O2SAT 97
== END 2023-02-21 21:47 | disposition home or self-care (01) ==
PROVIDERS: Emergency Provider Emergency Medicine; PCP Pediatrics
DX: M24.412 Recurrent dislocation, left shoulder (principal)
CPT/HCPCS: 73030; 99282; 99283

== ENCOUNTER 2023-02-23 14:10 | Emergency (ER) | payer MEDICARE, OTHER, SELFPAY ==
[2023-01-22 01:33] VITALS: BMI 27.0
[2023-02-23] VITALS (29 sets, daily range): BP systolic 139–235; BP diastolic 78–112; PULSE 52–71; RESP 11–21; TEMP 36.6; O2SAT 96–99; BMI 26.5
--- NOTE | 2023-02-23 14:18 | DI.RAD.S_ITS ---
PROCEDURE: XR SHOULDER LT MIN 2V INDICATIONS: suspected dislocation TECHNIQUE: 2 views of the shoulder were acquired. COMPARISON: [facility], CR, XR SHOULDER LT MIN 2V, 02/21/2023, 20:22. FINDINGS: Bones: Anterior dislocation of the left humerus. Soft tissues: No suspicious soft tissue calcifications. IMPRESSION: Left shoulder anterior dislocation. Dictated by: Nlida Araujo MD, PhD on 02/23/2023 at 14:43 Approved by: Nilda Araujo MD, PhD on 02/23/2023 at 14:44
--- NOTE | 2023-02-23 21:45 | DI.RAD.S_ITS ---
PROCEDURE: XR SHOULDER LT 1V INDICATIONS: post reduction TECHNIQUE: 1 views of the shoulder were acquired. COMPARISON: [facility], CR, XR SHOULDER LT MIN 2V, 02/21/2023, 20:22. [facility], CR, XR SHOULDER LT MIN 2V, 02/23/2023, 14:24. FINDINGS: Bones: There is persistent anterior dislocation of the left glenohumeral joint. Flattening of the superolateral humeral head consistent with a Hill-Sachs impaction fracture is redemonstrated. Soft tissues: No suspicious soft tissue calcifications. Confluent opacities laterally within the visualized left lung are nonspecific and may represent atelectasis or consolidation. IMPRESSION: 1. Persistent anterior dislocation of the left glenohumeral joint. 2. Hill-Sachs lesion of the left humeral head redemonstrated. Dictated by: Shakir Malik M.D. on 02/23/2023 at 23:53 Approved by: Shakir Malik M.D. on 02/23/2023 at 23:55
--- NOTE | 2023-02-23 21:45 | ED.EXTPRO ---
HPI - Extremity Problem General Chief complaint: Extremity Problem,Nontraumatic Stated complaint: dislocated shoulder Time Seen by Provider: 02/23/23 20:10 Source: patient and family Mode of arrival: Wheelchair History of Present Illness HPI Narrative: Patient 73-year-old male chronic left shoulder dislocation presents for the 3rd time this week. I saw him on the 3rd or he had a mild inferior subluxation but chose not to have it fully reduced at that time. Today reports increasing pain. They have decided he did not want any type of surgery. has ordered a special brace but it has not come yet. Related Data Home Medications Medication Instructions Recorded Confirmed carbidopa 25 mg-levodopa 100 mg 1.5 tab PO 5XD 12/26/21 02/20/23 tablet carbidopa ER 50 mg-levodopa 200 mg 1 tab PO ONCE PM 01/22/23 01/22/23 tablet,extended release Previous Rx's Medication Instructions Recorded clonazepam 0.5 mg tablet 0.5 mg PO BEDTIME PRN insomnia #30 03/31/22 tabs amiodarone 200 mg tablet See Rx Instructions .Route 01/25/23 .COMPLEX #72 tabs hydrocodone 5 mg-acetaminophen 325 1 tab PO Q6H PRN pain #10 tabs 02/23/23 mg tablet Allergies Allergy/AdvReac Type Severity Reaction Status Date / Time No Known Drug Allergies Allergy Verified 02/20/23 09:56 Review of Systems Review of Systems ROS Unobtainable: All systems reviewed & are unremarkable except as noted in HPI and below Patient History Medical History H/O recurrent urinary tract infection History of urinary incontinence (~2020) Parkinson disease (~2013) Vision disorder Surgical History Anesthesia No pertinent past surgical history Status post left rotator cuff repair Family History Father Alzheimer's disease Mother Cancer Brother Cancer Sister Hypertension Mental health problem Social History household members: spouse Smoking Status: Never smoker alcohol intake: never Smoking Status: Never smoker alcohol intake frequency: holidays/special occasions only Substance Use Type: does not use Exam Initial Vital Signs Initial Vital Signs: Vital Signs Temperature 98 F 02/23/23 14:14 Pulse Rate 56 L 02/23/23 14:14 Respiratory Rate 18 02/23/23 14:14 Blood Pressure 199/95 H 02/23/23 14:14 Pulse Oximetry 99 02/23/23 14:14 Oxygen Delivery Method Room Air 02/23/23 14:14 GENERAL: Alert 73-year-old male CARDIOVASCULAR: peripheral pulses in tact, cap refill <2 sec RESPIRATORY: No respiratory distress, speaks in full sentences without difficulty EXTREMITIES: Normal range of motion, no clubbing or edema. Neurovascularly intact Left shoulder step-off noted distal radial pulse intact NEUROLOGICAL: Cranial nerves II through XII grossly intact. Normal gait and speech. SKIN: Warm, dry, no petechiae, no rashes or lesions. Procedures Orthopedic Joint Reduction Joint #1: Side: left Joint Reduction Location: shoulder Analgesia: procedural sedation Shoulder Technique Used (if applicable): traction/counter-traction, external rotation, Milch and Diana Post-reduction neuro exam: intact and no change Post-reduction vascular: intact and no change Post Reduction X-Ray Obtained: Yes Post Reduction X-Ray Results: not reduced Splint Applied: Yes Patient Tolerated Procedure: Well and No complications Additional Comments: To have us made at reducing left shoulder both were unsuccessful. Procedural Sedation Consent signed: Yes Time out performed: Yes Indication: fracture/dislocation reduction ASA Class: II Mallampati Airway Classification: Class II IV Propofol dose (mg): 85 Intraservice time/total sedation time (min): 15 ED Sedation Level: Moderate (Concious) Patient Tolerated Procedure: Well and No complications Complications: none Additional Comments: Patient actually required to procedure sedation both using 85 mg of propofol Course Orders Ordered: ED Orders 02/23/23 21:45 XR shoulder LT 1V Stat 02/23/23 22:13 XR elbow LT min 3V Stat 02/23/23 22:27 CT UE LT wo con Stat Discontinued Medications Hydrocodone Bitart/Acetaminophen (Hydrocodone/Acet 5/325 Prepack) 1 bottle MISC SEEINSTR ONE Stop: 02/23/23 22:51 Last Admin: 02/23/23 23:06 Dose: 1 bottle Documented By: JORDI Hydromorphone HCl (Hydromorphone 0.5 Mg Inj) 0.5 mg IV NOW ONE Stop: 02/23/23 22:51 Last Admin: 02/23/23 23:06 Dose: 0.5 mg Documented By: JORDI Propofol (Propofol 200 Mg/20 Ml Vial) 85 mg 1 mg/kg (85 mg) IV NOW ONE Stop: 02/23/23 20:11 Last Admin: 02/23/23 22:40 Dose: 85 mg Documented By: JORDI Propofol (Propofol 200 Mg/20 Ml Vial) 85 mg 1 mg/kg (85 mg) IV NOW ONE Stop: 02/23/23 22:06 Last Admin: 02/23/23 22:40 Dose: 85 mg Documented By: JORDI Vital Signs Vital signs: Vital Signs - 8 hr 02/23/23 21:05 02/23/23 21:16 02/23/23 21:40 Pulse Rate 68 64 65 Respiratory Rate 18 14 15 Blood Pressure 169/84 H 173/93 H Pulse Oximetry 99 99 02/23/23 21:45 02/23/23 21:50 02/23/23 21:55 Pulse Rate 58 L 56 L 55 L Respiratory Rate 15 15 13 Blood Pressure 153/87 H 160/90 H 167/91 H Pulse Oximetry 99 97 98 02/23/23 22:00 02/23/23 22:05 02/23/23 22:10 Pulse Rate 62 62 61 Respiratory Rate 11 L 16 12 Blood Pressure 203/100 H 192/101 H 202/104 H Pulse Oximetry 99 99 96 02/23/23 22:15 02/23/23 22:20 02/23/23 22:26 Pulse Rate 54 L 56 L 59 L Respiratory Rate 19 15 13 Blood Pressure 162/94 H 184/88 H 197/100 H Pulse Oximetry 97 97 99 02/23/23 22:30 02/23/23 22:34 02/23/23 22:26 Pulse Rate 62 67 59 L Respiratory Rate 14 15 15 Blood Pressure 212/104 H 232/112 H Pulse Oximetry 98 99 02/23/23 21:09 02/23/23 21:09 02/23/23 21:15 Pulse Rate 66 Respiratory Rate 17 Blood Pressure 179/101 H 169/84 H Pulse Oximetry 98 02/23/23 21:15 02/23/23 21:20 02/23/23 21:20 Pulse Rate 65 65 Respiratory Rate 16 15 Blood Pressure 187/91 H Pulse Oximetry 98 98 02/23/23 21:25 02/23/23 21:25 02/23/23 21:30 Pulse Rate 66 66 Respiratory Rate 17 19 Blood Pressure 188/91 H Pulse Oximetry 98 98 02/23/23 21:31 02/23/23 21:31 02/23/23 21:35 Pulse Rate 71 Respiratory Rate 20 Blood Pressure 197/97 H 198/93 H Pulse Oximetry 98 02/23/23 21:35 02/23/23 21:41 02/23/23 21:41 Pulse Rate 67 66 Respiratory Rate 18 16 Blood Pressure 173/93 H Pulse Oximetry 99 99 02/23/23 21:45 02/23/23 21:45 02/23/23 21:50 Pulse Rate 58 L Respiratory Rate 17 Blood Pressure 153/87 H 160/90 H Pulse Oximetry 96 02/23/23 21:50 02/23/23 21:55 02/23/23 21:55 Pulse Rate 57 L 55 L Respiratory Rate 14 13 Blood Pressure 167/91 H Pulse Oximetry 97 98 02/23/23 22:00 02/23/23 22:01 02/23/23 22:01 Pulse Rate 62 60 Respiratory Rate 13 15 Blood Pressure 203/100 H Pulse Oximetry 98 98 02/23/23 22:05 02/23/23 22:05 02/23/23 22:10 Pulse Rate 61 Respiratory Rate 15 Blood Pressure 192/101 H 202/104 H Pulse Oximetry 98 02/23/23 22:10 02/23/23 22:16 02/23/23 22:16 Pulse Rate 61 61 Respiratory Rate 18 21 Blood Pressure 162/94 H Pulse Oximetry 96 97 02/23/23 22:20 02/23/23 22:20 02/23/23 22:25 Pulse Rate 56 L Respiratory Rate 16 Blood Pressure 184/88 H 197/100 H Pulse Oximetry 98 02/23/23 22:25 02/23/23 22:30 02/23/23 22:30 Pulse Rate 59 L 62 Respiratory Rate 15 14 Blood Pressure 212/104 H Pulse Oximetry 98 99 02/23/23 22:37 02/23/23 22:37 02/23/23 22:49 Pulse Rate 63 65 Respiratory Rate 16 Blood Pressure 232/112 H Pulse Oximetry 98 99 02/23/23 22:49 Pulse Rate Respiratory Rate Blood Pressure 235/104 H Pulse Oximetry MDM - Extremity (Nontraumatic) Imaging Data Extremity x-ray #1: Radiologist's Impression: PROCEDURE:? XR SHOULDER LT MIN 2V ? INDICATIONS:? suspected dislocation ? TECHNIQUE:? 2 views of the shoulder were acquired.? ? COMPARISON:? [facility], CR, XR SHOULDER LT MIN 2V, 02/21/2023, 20:22. ? FINDINGS:? ? Bones:? Anterior dislocation of the left humerus. ? Soft tissues:? No suspicious soft tissue calcifications.? ? IMPRESSION:? Left shoulder anterior dislocation. ? ? Extremity x-ray #2: Radiologist's Impression: PROCEDURE:? XR SHOULDER LT 1V ? INDICATIONS:? post reduction ? TECHNIQUE:? 1 views of the shoulder were acquired.? ? COMPARISON:? [facility], CR, XR SHOULDER LT MIN 2V, 02/21/2023, 20:22.? [facility], , XR SHOULDER LT MIN 2V, 02/23/2023, 14:24. ? FINDINGS:? ? Bones:? There is persistent anterior dislocation of the left glenohumeral joint.? Flattening of the superolateral humeral head consistent with a Hill-Sachs impaction fracture is redemonstrated. ? Soft tissues:? No suspicious soft tissue calcifications.? Confluent opacities laterally within the visualized left lung are nonspecific and may represent atelectasis or consolidation. ? IMPRESSION:? ? 1. Persistent anterior dislocation of the left glenohumeral joint. ? 2. Hill-Sachs lesion of the left humeral head redemonstrated. ? ? Dictated by: Shakir Malik M.D. on 02/23/2023 at 23:53 ? ? Approved by: Shakir Malik M.D. on 02/23/2023 at 23:55 ? Extremity x-ray #3: Radiologist's Impression: PROCEDURE:? XR ELBOW LT MIN 3V ? INDICATIONS:? injury ? TECHNIQUE:? 3 views of the elbow were acquired.? ? COMPARISON:? None. ? FINDINGS:? ? Bones:? No fractures or dislocations.? No suspicious bony lesions.? ? Soft tissues:? No elbow joint effusion.? No suspicious soft tissue calcifications.? ? ? IMPRESSION:? ? 1. No fracture or dislocation. ? ? Dictated by: Shakir Malik M.D. on 02/23/2023 at 23:55 ? ? Approved by: Shakir Malik M.D. on 02/23/2023 at 23:55 ? CT UE left: Radiologist's Impression: PROCEDURE:? CT UE LT WO CON ? INDICATIONS:? Persistent shoulder dislocation ? TECHNIQUE:? Noncontrast 1-1.5 mm thick sections acquired from the acromioclavicular joint to the inferior scapula, with coronal and sagittal reformatting.? ? COMPARISON:? [facility], CR, XR SHOULDER LT MIN 2V, 02/23/2023, 14:24.? [facility], CR, XR SHOULDER LT 1V, 02/23/2023, 21:50. ? FINDINGS:? Image quality:? Excellent.? ? Bones:? There is anterior dislocation of the left glenohumeral joint.? A Hill-Sachs impaction fracture of the superolateral humeral head is redemonstrated.? There is a corresponding small depression within the inferomedial glenoid consistent with a bony Bankart lesion. ? Soft tissues:? There is a multiloculated septated hypoattenuating fluid collection demonstrated along the glenohumeral joint deep to the deltoid as well as extending along the subscapularis.? This measures approximately 7.3 x 5.5 x 10.7 cm in dimension.? An additional component extends medially along the subscapularis. ? IMPRESSION:? ? 1. Persistent anterior dislocation of the left glenohumeral joint. ? 2. Hill-Sachs impaction deformity of the humeral head redemonstrated as well as a small bony Bankart lesion. ? 3. Multiloculated septated fluid collection demonstrated along the glenohumeral joint.? The findings are nonspecific and the differential includes a hematoma, abscess, or cystic neoplasm.? Recommend correlation clinically and consider further evaluation with a contrast enhanced MRI. ? ? Dictated by: Shakir Malik M.D. on 02/24/2023 at 0:20 ? ? [facility] Narrative Medical decision making narrative: Patient is 73-year-old male with frequent left shoulder dislocations. Presenting today with a left shoulder dislocation. Attempted at reduction with a procedure sedation. Unsuccessful 1st attempt. It was attempted again. Again it was unsuccessful. [place] some abnormal noises during reduction so elbow x-ray was done. No new fractures. Dr. Carlin on-call Orthopedics updated on persistent left shoulder dislocation despite multiple attempts. Recommends leaving it reduced and getting a CT. Patient can follow-up in clinic he will need surgery. Patient and updated on unsuccessful reduction and orthopedic recommendations including follow-up and likely needing surgery. Discharge Plan Departure Patient Disposition: Home Clinical Impression: Anterior dislocation of left shoulder Instructions: DI for Shoulder Dislocation Activity Restrictions/Additional Instructions: *You have been diagnosed with shoulder dislocation *What to do: At this time you must see orthopedics. Unable to get shoulder back into place today I am so sorry. You will likely need surgery or have a permanent dislocated shoulder. You will need to talk with Orthopedics about your options risks and benefits. *Continue to take medications as directed [place] 1 tablet every 6 hours if needed for severe pain--> SAFEWAY *Follow up with your primary care provider in 2-3 days or call [phone] Call orthopedics tomorrow, I spoke with Dr. Ryan but it was suggested Dr. Osuna would be the 1 to see you *Return to ER if you should have any new, worsening or concerning symptoms CONTROLLED SUBSTANCE DISCHARGE (Narcotoic/benzodiazepine/Flexeril/Phenergan) 1. You have been prescribed narcotic medications, it does have acetaminophen/Tylenol/paracetamol in it, DO NOT TAKE MORE THAN 4,00mg in 24 hours of Tylenol. TRAMADOL DOES NOT CONTAIN TYLENOL 2. Please understand that we cannot provide further refills of narcotics, benzodiazepines or controlled substances through the ED and her pain management will need to be through your provider. 3. While on these medications you cannot drive or operate heavy machinery. 4. You cannot sign legal documents or perform any duties such as this. 5. As long as you're taking opiate pain medications he should also be taking a stool softener such as Colace, Dulcolax, MiraLAX or prune juice, to help avoid constipation. Prescriptions: New hydrocodone-acetaminophen 5-325 mg tablet 1 tab PO Q6H PRN (Reason: pain) Qty: 10 0RF No Action clonazepam 0.5 mg tablet 0.5 mg PO BEDTIME PRN (Reason: insomnia) Qty: 30 1RF Rx Instructions: 1/2 to 1 tab administered 30 minutes before bedtime carbidopa-levodopa 25-100 mg Tablet 1.5 tab PO 5XD Rx Instructions: IR 0400, 0700, 1000, 1300, 1600 carbidopa-levodopa 50-200 mg tablet extended release 1 tab PO ONCE PM amiodarone 200 mg tablet See Rx Instructions .ROUTE .COMPLEX Qty: 72 0RF Rx Instructions: 400 mg BID for 6 days, followed by 200 mg BID for 24 days Referrals: [facility] [Provider Group] Miscellvida,MD Brett [Primary Care Provider] - Myles Palencia MD [Physician] - Stand Alone Forms: Patient Portal/API
--- NOTE | 2023-02-23 22:13 | DI.RAD.S_ITS ---
PROCEDURE: XR ELBOW LT MIN 3V INDICATIONS: injury TECHNIQUE: 3 views of the elbow were acquired. COMPARISON: None. FINDINGS: Bones: No fractures or dislocations. No suspicious bony lesions. Soft tissues: No elbow joint effusion. No suspicious soft tissue calcifications. IMPRESSION: 1. No fracture or dislocation. Dictated by: Shakir Malik M.D. on 02/23/2023 at 23:55 Approved by: Shakir Malik M.D. on 02/23/2023 at 23:55
--- NOTE | 2023-02-23 22:27 | DI.CT.S_ITS ---
PROCEDURE: CT UE LT WO CON INDICATIONS: Persistent shoulder dislocation TECHNIQUE: Noncontrast 1-1.5 mm thick sections acquired from the acromioclavicular joint to the inferior scapula, with coronal and sagittal reformatting. COMPARISON: [facility], CR, XR SHOULDER LT MIN 2V, 02/23/2023, 14:24. [facility], CR, XR SHOULDER LT 1V, 02/23/2023, 21:50. FINDINGS: Image quality: Excellent. Bones: There is anterior dislocation of the left glenohumeral joint. A Hill-Sachs impaction fracture of the superolateral humeral head is redemonstrated. There is a corresponding small depression within the inferomedial glenoid consistent with a bony Bankart lesion. Soft tissues: There is a multiloculated septated hypoattenuating fluid collection demonstrated along the glenohumeral joint deep to the deltoid as well as extending along the subscapularis. This measures approximately 7.3 x 5.5 x 10.7 cm in dimension. An additional component extends medially along the subscapularis. IMPRESSION: 1. Persistent anterior dislocation of the left glenohumeral joint. 2. Hill-Sachs impaction deformity of the humeral head redemonstrated as well as a small bony Bankart lesion. 3. Multiloculated septated fluid collection demonstrated along the glenohumeral joint. The findings are nonspecific and the differential includes a hematoma, abscess, or cystic neoplasm. Recommend correlation clinically and consider further evaluation with a contrast enhanced MRI. Dictated by: Shakir Malik M.D. on 02/24/2023 at 0:20 Approved by: Shakir Malik M.D. on 02/24/2023 at 0:30
[2023-02-23] MEDS: propofoL 200 MG/20 ML VIAL 85 MG IV ×2 (22:40)
[2023-02-23] MEDS: HYDROMORPHONE 0.5 MG INJ IV (23:06)
[2023-02-23] MEDS: HYDROCODONE/ACET 5/325 PREPACK 1 BOTTLE MISC (23:06)
== END 2023-02-23 23:37 | disposition home or self-care (01) ==
PROVIDERS: Emergency Provider Emergency Medicine
DX: S43.005A Unspecified dislocation of left shoulder joint, initial encounter (principal)
CPT/HCPCS: 23650; 73020; 73030; 73080; 73200; 96374; 99152; 99284; J1170; J2704

== ENCOUNTER → 2023-03-04 08:22 | Outpatient (CLI) | payer MEDICARE, OTHER, SELFPAY ==
[2023-01-22 01:33] VITALS: BMI 27.0
--- NOTE | 2023-03-04 | DI.CT.S_ITS ---
PROCEDURE: CT SHOULDER LEFT WITHOUT CON INDICATIONS: Other instability, left shoulder TECHNIQUE: Noncontrast 1-1.5 mm thick sections acquired from the acromioclavicular joint to the inferior scapula, with coronal and sagittal reformatting. COMPARISON: [facility], CT, CT UE LT WO CON, 02/23/2023, 22:43. FINDINGS: Image quality: Excellent. Bones: [id number] acromioclavicular joint osteoarthritic changes are seen with joint space narrowing, subchondral sclerosis and small marginal osteophyte formation depressing on musculotendinous junction of supraspinatus. Moderate glenohumeral joint osteoarthritic changes are seen with significant joint space narrowing, subchondral sclerosis and small inferior marginal osteophyte formation. Chronic appearing Hill-Sachs deformity involving posterior lateral humeral head is seen without corresponding bank are fracture. No acute shoulder fracture or dislocation. No suspicious bony lesions. Visualized left ribs are intact. Soft tissues: There is interval significant decrease in size of patient's known multiloculated septated hypoattenuating fluid collection surrounding acromioclavicular joint. No gross calcified intra-articular loose bodies. There is no full-thickness rotator cuff tendon rupture. No significant rotator cuff muscle atrophy is seen on sagittal views. Oval calcification within posterior fibers of distal supraspinatus which may indicate calcific tendinitis series 6 image 41 and series 4, image 97. No axillary lymphadenopathy. Visualized left lung field is clear. IMPRESSION: 1. Chronic appearing Hill-Sachs deformity involving posterior lateral humeral head. [id number] acromioclavicular joint osteoarthritis and moderate glenohumeral joint osteoarthritis. No acute shoulder fracture or dislocation. No suspicious bony lesions. 2. No full-thickness rotator cuff tendon rupture. No significant rotator cuff muscle atrophy. Possible calcific tendinitis involving distal supraspinatus as above unchanged from prior study. 3. Interval significant decrease in size of previously described multiloculated fluid collection associated with glenohumeral joint. No definite calcified intra-articular loose body is seen. Small to moderate glenohumeral joint effusion and subacromial subdeltoid bursal fluid is seen. Dictated by: Jose Ryan M.D. on 03/04/2023 at 9:46 Approved by: Jose Ryan M.D. on 03/04/2023 at 9:58
== END ==
PROVIDERS: Referring Provider Orthopaedic Surgery; Visit Provider Orthopaedic Surgery
DX: M25.312 Other instability, left shoulder (principal); M19.012 Primary osteoarthritis, left shoulder; M25.412 Effusion, left shoulder
CPT/HCPCS: 73200

== ENCOUNTER 2023-03-17 06:30 | Inpatient (IN) | payer MEDICARE, OTHER, SELFPAY ==
[2023-01-22 01:33] VITALS: BMI 27.0
[2023-03-03 15:27] VITALS: BMI 26.5
[2023-03-17] VITALS (14 sets, daily range): BP systolic 140–179; BP diastolic 61–102; PULSE 48–97; RESP 10–18; TEMP 36–36.6; O2SAT 92–98; BMI 26.5
--- NOTE | 2023-03-17 | DI.RAD.S_ITS ---
PROCEDURE: XR SHOULDER LT 1V INDICATIONS: POST-OP TECHNIQUE: 1 views of the shoulder were acquired. COMPARISON: [facility], [place], XR SHOULDER LT 1V, 02/23/2023, 21:50. [facility], [place], XR SHOULDER LT MIN 2V, 02/23/2023, 14:24. FINDINGS: Bones: Expected postoperative appearance of a left shoulder arthroplasty. Soft tissues: No suspicious soft tissue calcifications. Subcutaneous gas overlying the surgical bed, as expected. IMPRESSION: Expected postoperative appearance of a left shoulder arthroplasty. Dictated by: Dontae Reina M.D. on 03/17/2023 at 11:19 Approved by: Dontae Reina M.D. on 03/17/2023 at 11:20
[2023-03-17] MEDS: LACTATED RINGERS 1,000 ML 42 ML IV ×3 (07:30→08:50)
--- NOTE | 2023-03-17 07:44 | PM.PREOP ---
Pre-operative Note Interval Note History & Physical reviewed/Exam performed by Physician: Yes Changes to H&P: No
[2023-03-17] MEDS: TRANEXAMIC ACID 1,000 MG VIAL 1000 MG INJ (08:25)
[2023-03-17] MEDS: CEFAZOLIN 2 GM/100 ML PREMIX 100 ML IV (08:25)
[2023-03-17] MEDS: BUPIVACAINE 0.25% (PF) 30 ML, EPINEPHrine 0.15 MG INJ (08:48)
--- NOTE | 2023-03-17 09:02 | SUR.OPER ---
Beach chair with [employer] shoulder positioner. Lower body on padded OR bed. Head in foam padded head cradle, secured with straps. Non-operative arm wrapped with gel pad secured <90 degrees abduction across abdomen secured with draw sheet and tape. 2 Pillow under knees. Gel pad under heels and heels floated. Safety belt at thigh. Cloth tape over blanket over lower legs. Draw sheet across torso and secured with tape from bed rail to bed rail. Operative arm in control of the Surgeon.
--- NOTE | 2023-03-17 09:38 | SUR.OPER ---
Patients glasses placed in hospital provided black glass case with patient ID label and brought with patient to OR then PACU for patients orientation in PACU.
--- NOTE | 2023-03-17 10:19 | PM.OP.1 ---
Operative Date/Time/Diagnoses Date of procedure: 03/17/23 Time of procedure: 10:19 Pre-op diagnosis: Recurrent dislocation left shoulder Post-op diagnosis: same Procedure & Clinicians Procedure: Left reverse total shoulder arthroplasty Same procedure as scheduled: Yes Indications: Indications: This is a 73-year-old male with severe Parkinson's who has recurrent left shoulder dislocations which is significantly affecting his day-to-day living and pain level. His does most of the talking for him however he states that he can not even reach his arm out in front of him without it shoulder dislocating. He is tried activity modifications and bracing (strapping his arm to his side), this has been unsuccessful. After extensive discussion in clinic, they wished to go forward with surgery. Risks and benefits were described including the risk of recurrent dislocation, fracture, infection, bleeding, damage to internal structures including nerves. We also discussed the risk of failure of surgery and the need for revision surgery as well as the risk of anesthesia. The patient expressed understanding with these risks and wished to go forward with surgery. Surgeon: Myles Palencia [employer] Professor: Drew Queen Anesthesia Type: General Operative Notes Findings: Findings: Patient was dislocated in preop and he remained dislocated after intubation. There was cartilage loss over the humeral head, as well as anterior inferior bone loss from the glenoid. the subscap was intact however the remainder of the rotator cuff was torn Closure Type: primary Specimen(s): none sent Prosthetic devices, grafts, tissues, transplants, or devices: Tornier implants Base plate: standard 25 mm, +3 mm offse Glenosphere: Standard 36 mm Stem: Perform 2 Poly: 0 10 degrees Estimated Blood Loss (mL): 50 Procedure in detail: Patient was seen in the preoperative holding unit. The correct left shoulder was identified and marked with my initials. Again we discussed the risks and benefits of surgery and they wished to go forward with surgery. The patient was brought back to the operating room and placed supine on the operating table. Smooth endotracheal intubation was performed by anesthesia. All prominences were padded and they were placed into the beach chair position. Intravenous antibiotics were given. The left shoulder was then prepped with the standard sterile preparation and draping. A time-out was then performed in my initials were again identified on the correct shoulder. 1 g of IV tranexamic acid was given. A standard deltopectoral incision was made. Skin flaps were made. The cephalic vein was identified and retracted laterally. This was protected throughout the remainder of the case. Sharp dissection was made along the deltoid, subacromial and subcoracoid space to release adhesions. The conjoined tendon was identified and the axillary nerve was palpated and continuous using the tug test. It was protected throughout the remainder of the case. A brown retractor was placed underneath the deltoid muscle and a darach retractor underneath the conjoint tendon. The anterior circumflex artery and associated veins on the lower border of the subscapularis were identified and tied off using 0-Vicryl. The biceps tendon was identified in the bicipital groove. This was released from its sheath, and taken from its origin on the glenoid and tied into the pectoralis tendon for a solid tenodesis. We then began a subscapularis peel. The subscapularis was tagged with an Ethibond suture. A 360 degree circumferential release of the subscapularis was performed with protection of the axillary nerve. The coracohumeral ligament was released at the base of the coracoid. The coracoacromial ligament was left intact. The shoulder was then dislocated. Osteophytes were removed using combination of rongeur and osteotome. The rotator cuff was noted to be insufficient. An intramedullary guide was used set at version of 30?. Using an oscillating saw a conservative humeral head cut was made. Impaction reamers were reamed up to a size 2 stem with a built-in angle 135?. A neck protector was placed. Attention was then turned to the glenoid. After retracting the humeral head posteriorly a circumferential release was performed of the capsule with protection of the axillary nerve. The labrum was then released starting at the biceps anchor and going around the rim a small amount of triceps was released from the inferior glenoid. A center guide pin was then placed using the guide, followed by Reamer. After adequate cartilage was removed the center drill hole was drilled and measured. The base plate was then implanted and screwed into place. The superior drill hole was drilled and filled in a nonlocking fashion, followed by the inferior in nonlocking and anterior holes in locking fashion, the posterior hole was also filled. A 36 standard glenosphere was then selected and screwed into place onto the +3 base plate. Turning back to the humerus, the humeral head was delivered and trialed with a # 0, 10 degree polyethylene. The arm was taken through range of motion and this was felt to be stable. The trial was then removed and a dilute Betadine wash was then performed with 1 L of sterile saline. Before placing the final implant, drill holes were made in the bicipital groove for the subscapularis repair, and sutures were passed through the drill holes. The final stem was then impacted into the humerus. The shoulder was then reduced and again brought through range of motion and was felt to be stable. The interval was then closed using #2 Ethibond. The subscapularis was then repaired using a modified racking hitch with nice loupes. The deltopectoral interval was then closed with #2 Ethibond. The skin was closed with 2-0 PDS and Monocryl followed by Aquacel dressing. Patient was awoken from anesthesia and brought back to the postoperative recovery unit without issue. They were placed into a sling. Assisting participation: This operation could not have been safely performed (without compromising the technical results or length of the procedure) without the assistance of a skilled surgical services director. The surgical services director was medically necessary for proper positioning, retraction and manipulation of instruments, proper exposure, graft prep, and manipulation of tissue. Complications: none Post-operative Condition: stable Disposition: PACU Plan for aftercare: Postoperative instructions: Sling to remain on for 6 weeks. No external rotation past neutral for 6 weeks. Okay for him to come off her shower. Okay to shower over the Aquacel dressing. If any water gets underneath the dressing, remove the dressing. First postoperative visit in 2 weeks.
[2023-03-17] MEDS: KETOROLAC 30 MG/ML VIAL IV (11:02)
[2023-03-17] MEDS: ACETAMINOPHEN IV 1,000 MG/100 ML VIAL 400 MG IV (11:09)
--- NOTE | 2023-03-17 11:36 | SUR.PHASEI ---
SBAR report called to Zhane HALE. Pt transferred to the floor by Eli HALE with one white belonging bag. Brace in place to left shoulder.
--- NOTE | 2023-03-17 12:13 | PT-IP ANOTE ---
PT eval order received this morning from PACU. talked to the nurse and stated that the ortho doctor wants gait training for pt and d/c home. Nurse stated that pt uses a FWW prior to sx and has PD. pt will be having a L reverse TSA and will be NWB. informed nurse that this PT can do an evaluation but cannot assure that pt can go home afterwards since PT will have to train pt to use another AD and if appropriate has to conduct caregiver training for pt to safely go home. Nurse understood and will relay info to the ortho doctor. will f/u .
[2023-03-17] MEDS: CARBIDOPA-LEVODOPA 25/100 TABLET 1.5 EACH PO ×2 (12:55→16:35)
--- NOTE | 2023-03-17 13:30 | PT.IIE ---
Current Diagnoses Other instability, left shoulder (03/17/23) Surgery Performed Operation Date: 03/17/23 07:45 Actual Procedures p Reverse Total Shoulder Arthroplasty w. biceps tenodesis(Left) - Myles Palencia MD Surgical History (Last Reviewed 02/23/23 @ 22:30 by Jeni Wynne DO) Anesthesia No pertinent past surgical history Status post left rotator cuff repair Medical History (Last Reviewed 02/23/23 @ 22:30 by Jeni Wynne DO) H/O recurrent urinary tract infection History of urinary incontinence (~2020) Parkinson disease (~2013) Vision disorder Physical Therapy Inpatient Evaluation/Re-Eval M1 PT/OT-IP Prior Functional Status Start: 03/17/23 16:57 Freq: NEEDED Status: Active Protocol: Document 03/17/23 13:30 AB (Rec: 03/17/23 17:31 AB [id number]) Medical Review Prior Functional Status Medical History Reviewed Yes Communication pt with soft voice and needs time to respond to questions and instructions Mobility and Gait spoue in room and provided PLOf and home set up for pt: stated that pt usually requires assistance with all times; uses a FWW with assist but occasionally, spouse just provides pt with LAP HAND TOOL due to pt 's festinating gait and unable to control FWW Social History Household Members spouse Living Arrangements House Number of Floors (Floors) One Floor Number of Stairs To Enter/Railing? ramp to enter Home Environment Standard Height Toilet,Walk in Shower Home Equipment Front Wheel Walker,Manual Wheelchair,Bedside Commode, Shower Seat with Backrest,Hand Held Shower,Lift Recliner, Grab Bars Near Toilet,Grab Bars In Shower Additional Social History Comment spouse Melita assists pt at home 11/01 spouse stated that pt uses a bedside commode next to his bed and does not use the reg toilet pt plans to use the lift chair to sleep on upon d/c M2 PT-IP Current Condition Start: 03/17/23 16:57 Freq: NEEDED Status: Active Protocol: Document 03/17/23 13:30 AB (Rec: 03/17/23 17:31 AB [id number]) Physical Therapy Current Condition Current Condition Evaluation Date 03/17/23 Treatment Diagnosis s/p L reverse TSA; difficulty in walking Onset Date 03/17/23 M3 PT-IP Subjective Start: 03/17/23 16:57 Freq: NEEDED Status: Active Protocol: Document 03/17/23 13:30 AB (Rec: 03/17/23 17:31 AB [id number]) Subjective Physical Therapy Visit Type Type Initial Evaluation Visit Start Time 13:30 Visit Stop Time 14:52 Total Visit Minutes 88 Number of SENIOR DIRECTOR INSIGHT Visits 0 Physical Therapy Visit Comments Patient Comments agreeable to do PT Therapy Pain Assessment Pain When Pain Assessed At Rest Location Left Shoulder Scale Used moderate pain per pt Pain Management Techniques Distraction,Modification of Treatment,Re-positioning, Timing of Activity with Medications M4 PT-IP Mobility and Gait Start: 03/17/23 16:57 Freq: NEEDED Status: Active Protocol: Document 03/17/23 13:30 AB (Rec: 03/17/23 17:31 AB [id number]) PT-Bed Mobility Assessment Supine to Sit Supine to Sit Maximum Assistance,1 Person Assistance,2 Person Assistance Sit to Supine Sit to Supine Total Assistance,2 Person Assistance Scooting Scooting to Edge of Bed Dependent PT-Transfer Assessment Sit to and From Stand Sit to and from Stand Maximum Assistance,2 Person Assistance,Use of Upper Extremities Equipment Transfer Assistive Device Zachary Walker Orthotic/Prosthetic Devices or Brace: No Comments Mobility Comments pt in bed and spouse in room. educated pt and spouse regarding shoulder precautions . handout provided. pt with parkinson's disease and is slow to response. completed supine to sit with HOB elevated to ~ 45 deg max A x 1 -2 and max cues. total A for scooting to EOB. increase posterior trunk lean needing mod A for sitting balance. completed sling adjustment in sitting. spouse stated that sling don/doff was done as outpt prior to surgery. spouse was able to put sling on but with cues provided. Nurse in room to assist pt with PT. completed sit to stand from the EOB max A x 2 and max cues. needs max A for standing balance with increase retrolean in standing and extensor trunk tone. pt unable to hold self without assist. attempted to ambulate and was able to take 2 steps forward using hemiwalker but pt needing max A x 2 and assist with walker management and unsafe to walk farther. instructed to walk backwards and completed using hemiwalker max A x 2 and max cues. completed sit to supine total A x 2 and max cues. pt presenting with enbloc posture /trunk affecting standing balance and mobility. max cues required for all tasks. position pt in bed. call light and table placed within reach. informed pt and spouse regarding SNF rehab recommendation at this time but depending on progress. spouse stated that her daughter might be able to assist but cannot be there . Caregiver training set up for tomorrow at 930am but depending it pt will be appropriate to conduct caregiver training. Gait Assessment Gait Gait Assistance Required: Maximum Assistance,2 Person Assist Assistive Devices Assistive Device Zachary Walker Orthotic/Prosthetic Devices or Brace: Yes Gait Deviations General Gait Pattern Decreased Stride Length, Decreased Feet Clearance Factors Limiting Gait Function Factors Limiting Gait Function Abnormal Tonal Influences, Decreased Activity Tolerance, Decreased Strength,Difficulty Following Directions, Incoordination,Limited Range of Motion,Pain,Poor Balance, Poor Safety Awareness Comments Gait Comments able to take a few steps max A x 2 using hemiwalker PT-Balance Assessment Sitting Balance and Reactions Static Sitting Balance Ability Fair Dynamic Sitting Balance Ability Poor Standing Balance and Reactions Static Standing Balance Ability Poor Dynamic Standing Balance Ability Poor Device Used hemiwalker M5 PT-IP Objective Assessments Start: 03/17/23 16:57 Freq: NEEDED Status: Active Protocol: Document 03/17/23 13:30 AB (Rec: 03/17/23 17:31 AB [id number]) Orientation Orientation/Cognition Level of Alertness Alert Orientation Name Safety Awareness Decreased Safety Awareness Memory Description Short Term Impaired Gross Range of Motion Lower Extremity ROM Assessment Bilaterally Impaired Impairments B ankle limited DF Strength Lower Extremity Strength Assessment Within Functional Limits Muscle Tone Muscle Tone WNL No Other Assessments Other Other Assessments Overall trunk and BLE hypertonus M6 PT-IP Treatment Start: 03/17/23 16:57 Freq: NEEDED Status: Active Protocol: Document 03/17/23 13:30 AB (Rec: 03/17/23 17:31 AB [email or web address]) Physical Therapy Treatment Education Education Provided Precautions,Weight Bearing Status,Post-Op Packet,Safety Brace Education [place],Caregiver M7 PT-IP Assessment and Plan Start: 03/17/23 16:57 Freq: NEEDED Status: Active Protocol: Document 03/17/23 13:30 AB (Rec: 03/17/23 17:31 AB [email or web address]) PT Summary Assessment and Plan Potential Rehabilitation Potential Fair Status of Condition at Evaluation Evolving Summary Impairments Pain,ROM,Strength,Balance, Coordination,Sensation,Tone, Cognition,Bed Mobility, Transfers,Gait,Activity Tolerance Assessment Summary Pt is a 73 y/o male who underwent a L reverse TSA. pt was needing assist with all tasks prior to sx and uses a FWW. spouse assists pt prior to sx. pt currently has L shoulder precautions and is NWB on LUE and will not be able to use a FWW. Pt also has a dx of Parkinson's disease contributing to current mobility assistance needed. pt requiring max A x 2 to total A x 2 with bed mobility, sit <>stand and only able to take a few steps using hemiwalker max A x 2 and max cues. Due to pt's recent surgery and PD, pt needing increase assistance and pt has also difficulty follow directions and unable to use AD as directed. Recommeding SNF rehab at this time as pt will need further mobility training and further training of use of appropriate AD. Spouse is aware of pt's mobility and assistance level. Set up caregiver training for tomorrow at 930 am and will conduct if it is appropriate to conduct caregiver training. will continue to assess. Goals Bed Mobility Goal Minimal Assistance Transfer Goal Minimal Assistance Gait Goal Minimal Assistance,Zachary Walker Gait Distance 50 Other Goals improve bed mobility, transfers, ambulation ~ 100 ft using least restrictive AD/ LAP HAND TOOL CGA Days to Meet Goals 10 Frequency of Treatment Frequency Of Treatment Twice a Day Treatment Plan Physical Therapy Treatment Plan Bed Mobility Training,Transfer Training,Gait Training, Therapeutic Exercise,Balance Retraining,Post Op Education, Discharge Planning,Hot or Cold Pack,Neuromuscular Re-ed, Coordination Retraining,Manual Therapy Precautions Shoulder Precautions Sling,PROM,Internal Rotation to Body,No External Rotation, No Abduction,Forward Flexion to 90 degrees,Pendulums Weight Bearing Status Weight Bearing Status Non-Weight Bearing Allowed Weight Bearing Amount (enter % LUE NWB or #) (%) Recommendations To Nursing Amount of Assist Needed 2 Person Assist Discharge Recommendations PT Discharge Recommendations SNF Rehab Equipment Needed for Home Before hemiwalker/ cane depending on Discharge progress Transportation Needs at Discharge Wheelchair/Cabulance,Stretcher /Ambulance
[2023-03-17] MEDS: HYDROCODONE/ACET 5/325 TABLET 1 TAB PO ×2 (13:33→19:36)
[2023-03-17] MEDS: LACTATED RINGERS 1,000 ML 100 ML IV (18:05)
--- NOTE | 2023-03-17 18:45 | PC.NURSE ---
Day shift: Arrived onto the floor from PACU @ 1145. Patient is alert and oriented to person, place, situation, appears lethargic and withdrawn, slow to respond. VSS, O2 sats are 95% on RA. Aquacel drsg on left shoulder is clean, dry, intact. Left arm sling in place. Pain is moderate, well controlled w/ ordered PO medications. Has tremors at baseline d/t Parkinsons. Worked with PT this afternoon, required 2 person max assistance, patient unable to stand or walk without heavy support, notified MD Palencia, patient will work with PT/OT again tomorrow. Patient experienced episodes of anxiety and confusion after went home, pulled out IV, condom catheter, and SCDs. Moved patient to a view room (214), placed a PIV in right forearm, fall precautions in place. is currently w/ patient in the room, patient appears more relaxed.
[2023-03-17] MEDS: CARBIDOPA-LEVODOPA ER 50/200 TABLET 1 EACH PO (21:12)
[2023-03-17] MEDS: OXYCODONE IR 10 MG TABLET PO (22:03)
[2023-03-17] MEDS: CYCLOBENZAPRINE 10 MG TABLET PO (22:04)
[2023-03-18] MEDS: LACTATED RINGERS 1,000 ML 100 ML IV (04:05)
[2023-03-18] MEDS: CARBIDOPA-LEVODOPA 25/100 TABLET 1.5 EACH PO ×3 (04:16→09:38)
[2023-03-18 04:48] LABS: Hematocrit 37.3 % (41-53); Hemoglobin 12.9 g/dL (13.5-17.5); Mean Corpuscular HGB Conc 34.7 % (30-36); Mean Corpuscular Hemoglobin 30.4 PG (26-34); Mean Corpuscular Volume 87.6 fL (80-100); Platelet Count 238 X10^3/uL (150-400); Red Blood Cell Count 4.26 X10^6/uL (4.5-5.9); Red Cell Distribution Width 13.6 % (11.6-14.8); White Blood Cell Count 6.7 X10^3/uL (4.5-11.0)
--- NOTE | 2023-03-18 06:10 | PM.PNPO.1 ---
Subjective Subjective Date Patient Seen: 03/18/23 Time Patient Seen: 06:11 Exam Vital Signs (past 8 hours): - 03/17/23 23:22 Temperature 97.3 F L Pulse Rate 97 H Respiratory Rate 17 Blood Pressure 147/100 H Pulse Oximetry 95 Oxygen Delivery Method Room Air Oxygen Flow Rate 0 Objective Labs 03/18/23 04:00 Labs: Laboratory Results - last 24 hr 03/18/23 04:00 WBC 6.7 RBC 4.26 L Hgb 12.9 L Hct 37.3 L MCV 87.6 MCH 30.4 MCHC 34.7 RDW 13.6 Plt Count 238 PFSH Medical History H/O recurrent urinary tract infection History of urinary incontinence (~2020) Parkinson disease (~2013) Vision disorder Surgical History Anesthesia No pertinent past surgical history Status post left rotator cuff repair Family History Father Alzheimer's disease Mother Cancer Brother Cancer Sister Hypertension Mental health problem Social History household members: spouse Smoking Status: Never smoker alcohol intake: current Assessment & Plan Post-op Assessment and plan (1) Status post total shoulder arthroplasty: Assessment and Plan narrative: Sling to remain on for 6 weeks.? No external rotation past neutral for 6 weeks.? Okay for him to come off her shower.? Okay to shower over the Aquacel dressing.? If any water gets underneath the dressing, remove the dressing.? First postoperative visit in 2 weeks. Postoperative Procedures: Procedures Operation Date: 03/17/23 07:45 Actual Procedure Side Surgeon p Reverse Total Shoulder Arthroplasty w. biceps tenodesis Left Myles Palencia MD Quality VTE Deep Vein Thrombosis/Pulmonary Embolism Present on Admission: No
[2023-03-18 06:24] VITALS: BP 135/80; PULSE 70; RESP 16; TEMP 36.6; O2SAT 96
[2023-03-18] MEDS: OXYCODONE IR 10 MG TABLET PO (06:58)
--- NOTE | 2023-03-18 07:55 | P.DS_ITS ---
History of Present Illness History of Present Illness Date Patient Seen: 03/18/23 Time Patient Seen: 07:55 Chief complaint: INPT Narrative: Operative Date/Time/Diagnoses Date of procedure: 03/17/23 Time of procedure: 10:19 Pre-op diagnosis: Recurrent dislocation left shoulder Post-op diagnosis: same Procedure & Clinicians Procedure: Left reverse total shoulder arthroplasty Same procedure as scheduled: Yes Indications: Indications:? This is a 73-year-old male with severe Parkinson's who has recurrent left shoulder dislocations which is significantly affecting his day-to-day living and pain level.? His does most of the talking for him however he states that he can not even reach his arm out in front of him without it shoulder dislocating.? He is tried activity modifications and bracing (strapping his arm to his side), this has been unsuccessful.? After extensive discussion in clinic, they wished to go forward with surgery.? Risks and benefits were described including the risk of recurrent dislocation, fracture, infection, bleeding, damage to internal structures including nerves.? We also discussed the risk of failure of surgery and the need for revision surgery as well as the risk of anesthesia.? The patient expressed understanding with these risks and wished to go forward with surgery. Surgeon: Myles Palencia Machine Operator Transplanter: Drew Queen Anesthesia Type: General Operative Notes Findings: Findings:? Patient was dislocated in preop and he remained dislocated after intubation.? There was cartilage loss over the humeral head, as well as anterior inferior bone loss from the glenoid. the subscap was intact however the remainder of the rotator cuff was torn Closure Type: primary Specimen(s): none sent Prosthetic devices, grafts, tissues, transplants, or devices: Tornier implants Base plate:? standard 25 mm, +3 mm offse Glenosphere:? Standard 36 mm Stem:? Perform 2 Poly: 0 10 degrees Estimated Blood Loss (mL): 50 Discharge Providers Provider Date of admission: 03/17/23 06:30 Discharge Date: 03/18/23 Primary care physician: Doctor Chito MD Consults: 03/10/23 06:00 Consult to Anesthesiology Routine Comment: Consulting Provider: Anesthesiologist Reason for consultation: Regional block for post operative pain control 03/17/23 07:42 Consult to Physical Therapy Evaluate & Treat Comment: mobility assessment in PACU please! Physician Instructions: Evaluate and Treat 03/17/23 10:59 Consult to Discharge Planning Routine Comment: Consult to Physical Therapy Evaluate & Treat Comment: Physician Instructions: Evaluate and Treat Discharge provider: Gwendolyn La PA-C Summary Hospital Course Discharge Diagnosis: Recurrent left shoulder dislocation, advanced Parkinson's disease; s/p left reverse total shoulder arthroplasty Hospital Course: Mr Garcia'omari hospital course was unremarkable. On the morning of POD# 1, he was sleeping soundly but was arouseable enough to follow commands. His reported that he did have some pain last night but it was managed with oral medication and he was doing well after that. Her plan is to take the patient home today after caregiver training with PT. Exam Vital Signs (past 8 hours): - 03/18/23 06:24 Temperature 97.8 F Pulse Rate 70 Respiratory Rate 16 Blood Pressure 135/80 Pulse Oximetry 96 Oxygen Delivery Method Room Air Oxygen Flow Rate 0 Narrative Exam Narrative: Pt w/ sling in place. Able to wiggle fingers of left hand, sensation in touch throughout LUE. Aquacel dressing w/ minimal bloody drainage. Objective Labs 03/18/23 04:00 Labs: Laboratory Results - last 24 hr 03/18/23 04:00 WBC 6.7 RBC 4.26 L Hgb 12.9 L Hct 37.3 L MCV 87.6 MCH 30.4 MCHC 34.7 RDW 13.6 Plt Count 238 PFSH Medical History H/O recurrent urinary tract infection History of urinary incontinence (~2020) Parkinson disease (~2013) Vision disorder Surgical History Anesthesia No pertinent past surgical history Status post left rotator cuff repair Family History Father Alzheimer's disease Mother Cancer Brother Cancer Sister Hypertension Mental health problem Social History household members: spouse Smoking Status: Never smoker alcohol intake: current Discharge Assessment & Plan Assessment and Plan Assessment: Recurrent left shoulder dislocation, advanced Parkinson's disease; s/p left reverse total shoulder arthroplasty Plan of Treatment: Discharge home after PT if feels comfortable after caregiver training. Mul timodal pain control, f/u in office in 2 weeks as scheduled. Discharge Plan Discharge Plan Patient Disposition: Home Discharge orders & Medications Prescriptions: New cyclobenzaprine 10 mg Tablet 10 mg PO Q8H PRN (Reason: Spasms) Qty: 20 0RF Continued carbidopa-levodopa 25-100 mg Tablet 1.5 tab PO 5XD Rx Instructions: IR 0400, 0700, 1000, 1300, 1600 carbidopa-levodopa 50-200 mg tablet extended release 1 tab PO ONCE PM donepezil 10 mg tablet 10 mg PO BEDTIME Changed hydrocodone-acetaminophen 5-325 mg tablet 1 tab PO Q4-6H PRN (Reason: pain) Qty: 60 0RF Follow up/Referrals: Myles Palencia MD [Physician] - As previously scheduled (Follow up with Dr Palencia on 04/01/2023 @ 9:50 am at [employer] [facility] Doctor Dale MD [Primary Care Provider] - Diet/Activity/Treatments Diet: Diet as Tolerated Activity: Sling to remain on for 6 weeks. No external rotation past neutral for 6 weeks. Sling can come off for hygiene. Cold/Heat Therapy: Ice to shoulder as needed for pain. Skin/Wound/Dressing Care Report to your healthcare provider any signs of infection, such as:: chills, fever, night sweats, unusual drainage and unusual redness Dressing: Okay to shower over the Aquacel dressing. Leave dressing in place until follow up in office. Call the office if dressing becomes saturated. Visit Report/Discharge Packet Instructions: DI for Prescription Opioid Use, DI for Shoulder Replacement Stand Alone Forms: Patient Portal/API, Stroke Signs & Symptoms, Surgery Discharge Discharge Data Primary Care Provider: Doctor Chito Quality VTE Deep Vein Thrombosis/Pulmonary Embolism Present on Admission: No
[2023-03-18 08:13] VITALS: BP 105/67; PULSE 64; RESP 18; TEMP 36.6; O2SAT 93
--- NOTE | 2023-03-18 09:30 | PT.IPTN ---
Current Diagnoses Other instability, left shoulder (03/17/23) Surgery Performed Operation Date: 03/17/23 07:45 Actual Procedures p Reverse Total Shoulder Arthroplasty w. biceps tenodesis(Left) - Myles Palencia MD Physical Therapy Treatment Note M2 PT-IP Current Condition Start: 03/17/23 16:57 Freq: NEEDED Status: Active Protocol: Document 03/17/23 13:30 AB (Rec: 03/17/23 17:31 AB [id number]) Physical Therapy Current Condition Current Condition Evaluation Date 03/17/23 Treatment Diagnosis s/p L reverse TSA; difficulty in walking Onset Date 03/17/23 M3 PT-IP Subjective Start: 03/17/23 16:57 Freq: NEEDED Status: Active Protocol: Document 03/18/23 10:58 TS (Rec: 03/18/23 11:28 TS [id number]) Subjective Physical Therapy Visit Type Type Treatment Note Visit Start Time 09:30 Visit Stop Time 10:05 Total Visit Minutes 35 Notes Spouse present for caregiver training Number of METAL BUFFER Visits 1 Physical Therapy Visit Comments Patient Comments Pt is lethargic and very soft spoken. After some time pt agreeable to move out of bed with spouse. Therapy Pain Assessment Pain When Pain Assessed During Mobility Pain Present Pain Present Pain Reported Location Left Shoulder Pain Behaviors Facial Grimacing,Wincing M4 PT-IP Mobility and Gait Start: 03/17/23 16:57 Freq: NEEDED Status: Active Protocol: Document 03/18/23 10:58 TS (Rec: 03/18/23 11:28 TS [id number]) PT-Bed Mobility Assessment Supine to Sit Supine to Sit Maximum Assistance,1 Person Assistance Sit to Supine Sit to Supine Total Assistance,1 Person Assistance Scooting Scooting to Edge of Bed Dependent PT-Transfer Assessment Sit to and From Stand Sit to and from Stand Maximum Assistance,1 Person Assistance,Use of Upper Extremities Equipment Orthotic/Prosthetic Devices or Brace: No Transfers Transfer Destination Chair Transfer Technique Stand Pivot Transfer Ability Level of Assist Maximum Assistance,1 Person Assistance,Use of Upper Extremities Comments Mobility Comments Pt found resting in bed, spouse present. Supine to sit HOB elevated 60D MaxA x1 from spouse, pt has difficulty following instructions and is slow to respond, requires max cues from spouse. Attempted sit to stand from bed with cane, pt could not follow instructions on use. Sit to stand from bed MaxA x1 with heavy retrolean and no AD, spouse provided cues for weight forward and pushing through LEs to stand. Stand pivot into chair MaxA x1 with heavy retrolean, spouse provided cues for step sequencing and use of RUE to assist in lowering self to chair. Sit to stand from chair MaxA x1 from spouse, spouse provided cues for RUE support and pushing through LEs. Stand pivot back to chair MaxA x1, pt took better steps with less cueing. Sit to supine into bed total assist from spouse. Pt was left in bed all needs met, spouse in room, RN notified. Gait Assessment Gait Gait Assistance Required: Maximum Assistance,1 Person Assist Assistive Devices Assistive Device None,Gait Belt Orthotic/Prosthetic Devices or Brace: Yes Gait Deviations General Gait Pattern Decreased Stride Length, Decreased Feet Clearance Factors Limiting Gait Function Factors Limiting Gait Function Abnormal Tonal Influences, Decreased Activity Tolerance, Decreased Strength,Difficulty Following Directions, Incoordination,Limited Range of Motion,Pain,Poor Balance, Poor Safety Awareness Comments Gait Comments Pt performed stand pivot transfer to chair x2 with no AD. Pt had difficulty properly using AD and is too confusing for him. See mobility comments. PT-Balance Assessment Sitting Balance and Reactions Static Sitting Balance Ability Fair Dynamic Sitting Balance Ability Poor Standing Balance and Reactions Static Standing Balance Ability Poor Dynamic Standing Balance Ability Poor Device Used no AD M5 PT-IP Objective Assessments Start: 03/17/23 16:57 Freq: NEEDED Status: Active Protocol: Document 03/17/23 13:30 AB (Rec: 03/17/23 17:31 AB [id number]) Orientation Orientation/Cognition Level of Alertness Alert Orientation Name Safety Awareness Decreased Safety Awareness Memory Description Short Term Impaired Gross Range of Motion Lower Extremity ROM Assessment Bilaterally Impaired Impairments B ankle limited DF Strength Lower Extremity Strength Assessment Within Functional Limits Muscle Tone Muscle Tone WNL No Other Assessments Other Other Assessments Overall trunk and BLE hypertonus M6 PT-IP Treatment Start: 03/17/23 16:57 Freq: NEEDED Status: Active Protocol: Document 03/18/23 10:58 TS (Rec: 03/18/23 11:28 TS [id number]) Physical Therapy Treatment Education Education Provided Precautions,Weight Bearing Status,Post-Op Packet,Safety Brace Education Donning,Medill,Caregiver M7 PT-IP Assessment and Plan Start: 03/17/23 16:57 Freq: NEEDED Status: Active Protocol: Document 03/18/23 10:58 TS (Rec: 03/18/23 11:28 TS [id number]) PT Summary Assessment and Plan Potential Rehabilitation Potential Fair Summary Impairments Pain,ROM,Strength,Balance, Coordination,Sensation,Tone, Cognition,Bed Mobility, Transfers,Gait,Activity Tolerance Progress Towards Goals Slow Progress due to Medical Issues Assessment Summary Deni is making slow progress with his mobility. He required MaxA x1 from spouse for supine to sit with HOB elevated 60D. He maintained sitting balance EOB with cues for RUE support and occasional Mitchell from spouse. He performed stand pivot transfer into chair/bed x2 with spouse . From bed pt needing max cueing for sequencing and has a heavy retrolean. Stand pivot from chair back to bed MaxA with spouse, she provided cues and pt followed instructions well. Attempted to use cane for transfer but do difficult for pt to follow, spouse reports pt had same difficulty with hemiwalker. Pt tends to have difficulty following instructions, he becomes distracted and is slow to respond. PT is recommending SNF vs 11/01 at home from spouse and HHPT. Spouse was able to assist pt on own and she thinks he will do better in his home environment. Pt will be staying in a lift recliner and he will be transferring to a w/c at home until he can use his FWW again . Spouse reports daughter will be staying for a few days to assist at home and will have help to get him into the house . Pt would benefit from going to rehab but spouse wants him to return home. Goals Bed Mobility Goal Minimal Assistance Transfer Goal Minimal Assistance Gait Goal Minimal Assistance,Zachary Walker Gait Distance 50 Other Goals improve bed mobility, transfers, ambulation ~ 100 ft using least restrictive AD/ FLOOR MANAGER CGA Days to Meet Goals 10 Frequency of Treatment Frequency Of Treatment Twice a Day Treatment Plan Physical Therapy Treatment Plan Bed Mobility Training,Transfer Training,Gait Training, Therapeutic Exercise,Balance Retraining,Post Op Education, Discharge Planning,Hot or Cold Pack,Neuromuscular Re-ed, Coordination Retraining,Manual Therapy Other Recommendations and Next Treatment bed mob, transfers to chair/ Focus wheelchair, standing functional strengthening and balance activities. Precautions Shoulder Precautions Sling,PROM,Internal Rotation to Body,No External Rotation, No Abduction,Forward Flexion to 90 degrees,Pendulums Weight Bearing Status Weight Bearing Status Non-Weight Bearing Allowed Weight Bearing Amount (enter % LUE NWB or #) (%) Recommendations To Nursing Amount of Assist Needed 2 Person Assist Discharge Recommendations PT Discharge Recommendations Home with 11/01 Assist Available,Home Health,SNF Rehab,Home vs SNF Equipment Needed for Home Before hemiwalker/ cane depending on Discharge progress Transportation Needs at Discharge Wheelchair/Cabulance,Stretcher /Ambulance
--- NOTE | 2023-03-18 10:30 | PC.NURSE ---
Patient worked with physical therapy and he suggests rehab but patients will not take him to rehab. She is his appraisal manager youth care specialist and they will be going home today. He is lethargic last pain medications given at 0700. He was given his Parkinsons Medication. Will go over discharge paper work soon. Aquacel to shoulder is cdi with sling in place.
[2023-03-18] MEDS: HYDROCODONE/ACET 5/325 TABLET 1 TAB PO (11:19)
--- NOTE | 2023-03-18 12:15 | CM.DANOTE ---
Initial DCP Assessment Note FRINGING MACHINE OPERATOR reviewed chart and consulted in team rounds. Pt/spouse left the building prior to this FRINGING MACHINE OPERATOR's ability to meet with them f/f. FRINGING MACHINE OPERATOR did call , she states that she already set-up [facility], which is anticipated to start tomorrow. She declines any further d/c needs at this time. Discharge Planning/Care Management CM Discharge Assessment Start: 03/18/23 12:10 Freq: Status: Discharge Protocol: Document 03/18/23 12:10 DPL (Rec: 03/18/23 12:15 DPL [id number]) Discharge Planning Assessment Assigned Office Supervisor MS RenéeW Advance Directives? Yes: POLST Advance Directives on File No History Provided By Family Member,Medical Record Expected Length of Stay 1 Has Patient been admitted in last 30 No days? Prior Living Arrangements House Household Members spouse Type of transporation used prior to Relies on Others admit Comment Pt also dx w/Parkinson's Disease. Needs Assistance With Bathing,Grooming,Meal Prep, Managing Medications,Home Chores / Shopping Caregiver for Another No DME Already Rented / Owned Wheelchair,FWW / Walker,Cane Patient/Family Preference Home with Home Health Comment Pt/spouse left the building prior to this assessment. Called and spoke with / Melita. She indpependently ordered and set-up [facility], anticipated to start services tomorrow. Comment Bruising, eye fx and sx of Parkinsons currently exacerbated per spouse, namely generalized weakness and poor balance = SNF may be a safer option than home Discharge Plan Home Referrals Initiated None needed Additional Comment At this time. Might need HH or SNF. Review Status In Process Please Provide Date Initial DC 03/18/23 Assessment Was Performed Pre-Anesthesia Assessment Start: 03/03/23 15:27 Freq: Status: Discharge Protocol: Document 03/03/23 15:27 AK (Rec: 03/03/23 15:49 AK [id number]) Pre-Anesthesia Assessment Patient Information Reviewed Via Chart Review Assessment Completed With Spouse Comment Assessment with spouse due to parkinsons/difficulty speaking Diagnostic Results BMP/CMP,CBC,Chest X-Ray,EKG Comment Echo 01/22/23 Primary Care Provider Deni Monten[place] Comment None Medical Clearance Received No Seen Specialist in Last 12 Months Yes Specialist Seen Orthopedist,Other Comment Florina neurologistJenn [place] Primary Language Chinese Preferred Language Chinese Height 177.8 cm Weight 83.915 kg Body Mass Index (BMI) 26.5 Hearing Ability Normal Visual Impairment Partially Limited Visual Assist Glasses Dentition Type Teeth, Natural Present,Teeth, Missing Barriers to Learning Cognitive impairment,Cognitive /Verbal,Memory Hx Anesthesia Reactions No Hx Family Anesthesia Reaction No Hx Malignant Hyperthermia No Hx Blood Transfusions No Hx Blood Transfusion Reaction No Anesthesia Review Requested No Marketing Secretary No alcohol intake current alcohol intake frequency holidays/special occasions only Smoking Status Never smoker Substance Use Type does not use History of Falling (Recent or History of Yes ) Patient is completely paralyzed or No completely immobile Ambulatory Aid Crutches/cane/walker Prosthesis or Orthotic Device Front Wheel Walker Gait/Transferring Weak Mental Status Forgets limitations Is patient on oxygen? No Does patient have MADRID/SOB No Hx Sleep Apnea No Currently Taking a Beta Yinka No Can You Climb a Flight of Stairs Without Yes SOB Hx Chest Pain No Hx SOB No Hx Syncope or Dizziness No Anti-Coagulant Therapy No Has a Assessor No Hx Pacemaker/ICD No Pacemaker Rep Required? No Diet Type At Home Regular Dysphagia Yes: Intermittent Bladder Pattern Incontinent Urinary Catheter Present No Hx Urinary Self Catheterization No Diabetes No Hx Drug Resistant Organism No Presence of External or Internal Medical No Devices Have you had any close contact with No someone diagnosed with COVID-19? Are you experiencing any of these No symptoms symptoms? Received a COVID vaccine? No Marital Status Lives With spouse Support System Caregiver,Spouse Does the Patient Have Assistance After Yes Surgery Patient Discharge Plan Description Return Home Do You Have Any Spiritual Beliefs That No May Affect Your HC Choices? Do You Have Any Cultural Practices That No May Affect Your HC Choices? Who Can We Speak to About Patient's Care [facility] Care Proxy/Next of Kin [facility] Emergency Contact Name [facility] Emergency Contact Advance Directives? Yes: POLST Advance Directives on File No Requested Patient Bring Advanced Yes Directives DOS Power of Police Investigator Yes Power of Police Investigator Name [facility] Power of Police Investigator PAC Instructions Assistance for 24 hours post- op,Durable medical equipment, Medications to take/avoid, Nasal antibiotic,No ETOH/ petroleum product on skin DOS, NPO,Post-op transportation,Pre -surgical wash,Sensory aids, Sturdy shoes/comfortable clothes,Do not bring valuables and remove jewelry
== END 2023-03-18 11:39 | disposition home or self-care (01) | DRG 483 ==
PROVIDERS: Admitting Provider Orthopaedic Surgery; Referring Provider Orthopaedic Surgery; Visit Provider Orthopaedic Surgery
PROC: 0RRK00Z Replacement of Left Shoulder Joint with Reverse Ball and Socket Synthetic Substitute, Open Approach (ICD-10-PCS; CPT 23472; principal; 2023-03-17 07:45)
DX: M24.412 Recurrent dislocation, left shoulder (principal); M25.312 Other instability, left shoulder; G20 Parkinson's disease
CPT/HCPCS: 64450; 73020; 85027; 97163; 97530; C1776; J0131; J0171; J0690; J1100; J1885; J2250; J2405; J2704; J3010

== ENCOUNTER → 2024-05-14 10:33 | Outpatient (CLI) | payer MEDICARE, OTHER, SELFPAY ==
[2024-01-25 14:53] VITALS: BMI 26.5
--- NOTE | 2024-05-14 | DI.MRI.S_ITS ---
PROCEDURE: MR HEAD/BRAIN WO CON INDICATIONS: PARKINSON'S DISEASE W/O DYSKINESIA/MEMORY LOSS TECHNIQUE: Non-contrast axial T1 spin echo, axial T2 fast spin echo, sagittal and axial FLAIR, coronal T2 fast spin echo, axial gradient echo, axial diffusion and ADC through the brain. COMPARISON: [facility], , MR HEAD/BRAIN WO CON, 01/23/2023, 9:25. FINDINGS: Image quality: Excellent. CSF spaces: Ventricles appear symmetric in size and shape. Basal cisterns are patent. No extra-axial fluid collections. Brain: No intracranial bleeds or mass effects. There is cerebral volume loss for age. There are periventricular and deep white matter chronic small vessel ischemic changes. Brainstem appears normal. Diffusion-weighted images show no acute infarct. No chronic ischemic insults. Normal intravascular flow voids are present. Skull and face: Calvarial bone marrow is normal in signal. Orbits are normal. Sinuses: Sinuses and mastoids are clear. IMPRESSION: No acute intracranial abnormalities. Redemonstration of age-related global volume loss and chronic microvascular ischemic changes. Dictated by: David Vivar M.D. on 05/15/2024 at 10:32 Approved by: David Vivar M.D. on 05/15/2024 at 10:37
== END ==
PROVIDERS: PCP Family Medicine; Referring Provider Psychiatry & Neurology Neurology; Visit Provider Psychiatry & Neurology Neurology
DX: G20.A1 Parkinson's disease without dyskinesia, without mention of fluctuations (principal); R41.3 Other amnesia
CPT/HCPCS: 70551

== ENCOUNTER → 2025-06-20 13:44 | Outpatient (CLI) | payer MEDICARE, OTHER, SELFPAY ==
[2024-01-25 14:53] VITALS: BMI 26.5
[2025-06-20 14:26] LABS: Hematocrit 46.7 % (41-53); Hemoglobin 15.9 g/dL (13.5-17.5); Mean Corpuscular HGB Conc 34.1 % (30-36); Mean Corpuscular Hemoglobin 30.2 PG (26-34); Mean Corpuscular Volume 88.4 fL (80-100); Platelet Count 262 X10^3/uL (150-400)
[2025-06-20 14:52] LABS: Alanine Aminotransferase 8 IU/L (<50); Albumin 4.7 g/dL (3.5-5.0); Albumin Globulin Ratio 1.7 (1.0-2.8); Alkaline Phosphatase 111 U/L (38-126); Blood Urea Nitrogen 19 mg/dL (9-20); Calcium 10.0 mg/dL (8.4-10.2); Carbon Dioxide 27 mmol/L (22-32); Chloride 104 mmol/L (98-107); Estimated Glomerular Filt Rate > 60 mL/min (>60); Globulin 2.8 g/dL (1.7-4.1); Glucose 93 mg/dL (70-99); HEMOLYSIS < 15 (0-50); Potassium 4.6 mmol/L (3.4-5.1); Sodium 141 mmol/L (137-145); Total Protein 7.5 g/dL (6.3-8.2)
[2025-06-21 15:47] LABS: Hep C Virus Ab w/Reflex Quant NEGATIVE s/c (NEGATIVE)
== END ==
PROVIDERS: PCP Family Medicine; Referring Provider Family Medicine; Visit Provider Family Medicine
DX: I10 Essential (primary) hypertension (principal); G20.C Parkinsonism, unspecified; F02.80 Dementia in other diseases classified elsewhere, unspecified severity, without behavioral disturbance, psychotic disturbance, mood disturbance, and anxiety
CPT/HCPCS: 80053; 85027; 86803